=== PATIENT | female | born 1940 | race Caucasian/White ===

== ENCOUNTER 2018-12-15 18:50 | Inpatient (IN) | payer MEDICARE, BC ==
[2018-12-15] MEDS ORDERED: SODIUM CHLORIDE 0.9% 1,000 ML IV ONE (19:24)
[2018-12-15 20:17] LABS: Anisocytosis Slight; Basophils % (A) 0 %; Eosinophils # (A) 0.2 k/uL (0-0.7); Eosinophils % (A) 2 %; HCT 25.6 % (34.0-46.0); Lymphocytes % (A) 12 %; MCH 28.2 pg (25.0-35.0); MCHC 31.3 g/dL (31.0-37.0); MCV 90.1 fL (80.0-100.0); Mean Platelet Volume 7.3; Monocytes # (A) 0.5 k/uL (0-1.0); Monocytes % (A) 6 %; Neutrophils # (A) 6.6 k/uL (1.3-7.7); Neutrophils % (A) 79 %; Platelet Count 227 k/uL (150-450); RBC 2.84 m/uL (3.80-5.40); RDW 16.7 % (11.5-15.5); WBC 8.4 k/uL (3.8-10.6)
[2018-12-15 20:26] LABS: ALT 32 U/L (9-52); AST 19 U/L (14-36); Albumin 2.8 g/dL (3.5-5.0); Alkaline Phosphatase 69 U/L (38-126); Anion Gap 5 mmol/L; Blood Urea Nitrogen 54 mg/dL (7-17); Calcium 8.8 mg/dL (8.4-10.2); Carbon Dioxide 26 mmol/L (22-30); Chloride 105 mmol/L (98-107); Glucose 115 mg/dL (74-99); Potassium 5.2 mmol/L (3.5-5.1); Sodium 136 mmol/L (137-145); Total Bilirubin 0.2 mg/dL (0.2-1.3); Total Protein 4.9 g/dL (6.3-8.2)
--- NOTE | 2018-12-15 20:30 | ED ---
GI Bleed HPI - General Source: patient Mode of arrival: wheelchair Limitations: no limitations <Sheila Del Rio - Last Filed: 12/15/18 21:21> <David Randle - Last Filed: 12/15/18 23:22> - General Chief complaint: GI Bleed Stated complaint: GI Bleed Time Seen by Provider: 12/15/18 19:16 - History of Present Illness Initial comments: 78-year-old female patient presents to the emergency department today for evaluation after having 3 episodes of bloody bowel movements. Patient states the first bowel movement was dark black in color. States the subsequent 2 bowel movements had bright red blood present. Family did bring a sample did show evidence of bright red bleeding. Patient denies any history of GI bleed. States her last colonoscopy was in March which showed some evidence for diverticulosis. Patient denies any abdominal pain, nausea, or vomiting with this. Patient states she is feeling weak and did nearly passed out at home. Upon transfer into the hospital stretcher after triage patient did have a syncopal episode. She denies any fever or chills. Denies any headache, blurred vision, double vision, current dizziness. Denies any use of anticoagulants or antiplatelet medications. atient denies any recent rash, shortness breath, chest pain, diarrhea, constipation, back pain, numbness, tingling, dizziness, weakness, hematuria, dysuria, urinary urgency, urinary frequency, headache, visual changes, or any other complaints. (Sheila Del Rio) - Related Data Home Medications Medication Instructions Recorded Confirmed Allopurinol [Zyloprim] 300 mg PO DAILY 12/15/18 12/15/18 Aspirin [[place] Aspirin EC] 81 mg PO DAILY 12/15/18 12/15/18 Calcium Carbonate [Calcium] 600 mg PO DAILY 12/15/18 12/15/18 Cholecalciferol (Vitamin D3) 2,000 unit PO Q7D 12/15/18 12/15/18 [Vitamin D3] Cyanocobalamin (Vitamin B-12) 1,000 mcg PO DAILY 12/15/18 12/15/18 [Vitamin B-12] Dicyclomine HCl 10 mg PO DAILY PRN 12/15/18 12/15/18 Furosemide [Lasix] 20 mg PO DAILY 12/15/18 12/15/18 HYDROcodone/APAP 7.5-325MG [[place] 1 tab PO DAILY 12/15/18 12/15/18 7.5-325] Levothyroxine Sodium [Synthroid] 75 mcg PO DAILY 12/15/18 12/15/18 Losartan [Cozaar] 25 mg PO DAILY 12/15/18 12/15/18 Multivitamin/Iron/Folic Acid 1 tab PO DAILY 12/15/18 12/15/18 [Centrum Women Tablet] OXcarbazepine [Trileptal] 225 mg PO BID 12/15/18 12/15/18 Propranolol HCl 60 mg PO DAILY 12/15/18 12/15/18 Vits A,C,E/Lutein/Minerals 1 tab PO DAILY 12/15/18 12/15/18 [Ocuvite with Lutein Tablet] Allergies Allergy/AdvReac Type Severity Reaction Status Date / Time daptomycin Allergy Unknown Verified 12/15/18 19:45 hydromorphone [From Dilaudid] Allergy Unknown Verified 12/15/18 19:45 latex Allergy Unknown Verified 12/15/18 19:45 neomycin Allergy Unknown Verified 12/15/18 19:45 Review of Systems ROS Other: All systems not noted in ROS Statement are negative. <Sheila Del Rio - Last Filed: 12/15/18 21:21> ROS Other: All systems not noted in ROS Statement are negative. <David Randle - Last Filed: 12/15/18 23:22> ROS Statement: Those systems with pertinent positive or pertinent negative responses have been documented in the HPI. Past Medical History Past Medical History: Hypertension, Thyroid Disorder Additional Past Medical History / Comment(s): anemia History of Any Multi-Drug Resistant Organisms: None Reported Past Surgical History: Appendectomy, Cholecystectomy, Hysterectomy, Orthopedic Surgery Past Psychological History: No Psychological Hx Reported Smoking Status: Never smoker Past Alcohol Use History: None Reported Past Drug Use History: None Reported <Sheila Del Rio - Last Filed: 12/15/18 21:21> General Exam Limitations: no limitations General appearance: alert, in no apparent distress, other (This is a well-develo ped, well-nourished elderly female patient. Vital signs upon presentation are temperature 98.5F, pulse 91, respirations 18, blood pressure 62/38, pulse ox 97% on room air.) Eye exam: Present: normal appearance, PERRL, EOMI. Absent: scleral icterus, conjunctival injection, periorbital swelling ENT exam: Present: normal exam, normal oropharynx, mucous membranes moist Respiratory exam: Present: normal lung sounds bilaterally. Absent: respiratory distress, wheezes, rales, rhonchi, stridor Cardiovascular Exam: Present: regular rate, normal rhythm, normal heart sounds. Absent: systolic murmur, diastolic murmur, rubs, gallop, clicks GI/Abdominal exam: Present: soft, normal bowel sounds. Absent: distended, tenderness, guarding, rebound, rigid Neurological exam: Present: alert, oriented X3, CN II-XII intact Psychiatric exam: Present: normal affect, normal mood Skin exam: Present: warm, dry, intact, pallor. Absent: normal color, rash <Sheila Del Rio - Last Filed: 12/15/18 21:21> Course Vital Signs 12/15/18 12/15/18 12/15/18 19:08 19:38 20:01 Temperature 98.5 F Pulse Rate 91 74 74 Respiratory 18 20 18 Rate Blood Pressure 62/38 104/56 112/58 O2 Sat by Pulse 97 97 98 Oximetry 12/15/18 12/15/18 12/15/18 20:21 20:53 22:17 Temperature 98.1 F Pulse Rate 74 70 75 Respiratory 20 18 16 Rate Blood Pressure 108/55 122/65 95/48 O2 Sat by Pulse 98 98 Oximetry 12/15/18 22:32 Temperature 98.1 F Pulse Rate 76 Respiratory 16 Rate Blood Pressure 101/49 O2 Sat by Pulse Oximetry Medical Decision Making - Lab Data Result diagrams: 12/15/18 19:29 12/15/18 19:29 - EKG Data -: EKG Interpreted by Ny <Sheila Del Rio - Last Filed: 12/15/18 21:21> - Lab Data Result diagrams: 12/15/18 19:29 12/15/18 19:29 <David Randle - Last Filed: 12/15/18 23:22> - Medical Decision Making 78 female presenting with episode of melena followed by red rectal bleeding. Initial blood pressure is low, discussed it gonzales with IV fluids. Hemoglobin is 8 to patient's primary care physician she does have baseline hemoglobin around 9. She is not on any anticoagulation. She will be transfused 1 unit, she will be kept in the ICU for close monitoring, serial hemoglobin, GI consultation. Case discussed with both the admitting physician [facility]me. [facility] - Lab Data Lab Results 12/15/18 12/15/18 12/15/18 Range/Units 19:29 19:29 19:29 WBC 8.4 (3.8-10.6) k/uL RBC 2.84 L (3.80-5.40) m/uL Hgb 8.0 L (11.4-16.0) gm/dL Hct 25.6 L (34.0-46.0) % MCV 90.1 (80.0-100.0) fL MCH 28.2 (25.0-35.0) pg MCHC 31.3 (31.0-37.0) g/dL RDW 16.7 H (11.5-15.5) % Plt Count 227 (150-450) k/uL Neutrophils % 79 % Lymphocytes % 12 % Monocytes % 6 % Eosinophils % 2 % Basophils % 0 % Neutrophils # 6.6 (1.3-7.7) k/uL Lymphocytes # 1.0 (1.0-4.8) k/uL Monocytes # 0.5 (0-1.0) k/uL Eosinophils # 0.2 (0-0.7) k/uL Basophils # 0.0 (0-0.2) k/uL Anisocytosis Slight PT (9.0-12.0) sec INR (<1.2) APTT (22.0-30.0) sec Sodium 136 L (137-145) mmol/L Potassium 5.2 H (3.5-5.1) mmol/L Chloride 105 (98-107) mmol/L Carbon Dioxide 26 (22-30) mmol/L Anion Gap 5 mmol/L BUN 54 H (7-17) mg/dL Creatinine 0.74 (0.52-1.04) mg/dL Est GFR (CKD-EPI)AfAm >90 (>60 ml/min/1.73 sqM) Est GFR (CKD-EPI)NonAf 80 (>60 ml/min/1.73 sqM) Glucose 115 H (74-99) mg/dL Calcium 8.8 (8.4-10.2) mg/dL Total Bilirubin 0.2 (0.2-1.3) mg/dL AST 19 (14-36) U/L ALT 32 (9-52) U/L Alkaline Phosphatase 69 (38-126) U/L Troponin I (0.000-0.034) ng/mL Total Protein 4.9 L (6.3-8.2) g/dL Albumin 2.8 L (3.5-5.0) g/dL Blood Type O Positive Blood Type Recheck No Antibody Screen NEGATIVE Crossmatch See Detail Spec Expiration Date 12/18/2018 - 232812/15/18 12/15/18 Range/Units 19:29 19:29 WBC (3.8-10.6) k/uL RBC (3.80-5.40) m/uL Hgb (11.4-16.0) gm/dL Hct (34.0-46.0) % MCV (80.0-100.0) fL MCH (25.0-35.0) pg MCHC (31.0-37.0) g/dL RDW (11.5-15.5) % Plt Count (150-450) k/uL Neutrophils % % Lymphocytes % % Monocytes % % Eosinophils % % Basophils % % Neutrophils # (1.3-7.7) k/uL Lymphocytes # (1.0-4.8) k/uL Monocytes # (0-1.0) k/uL Eosinophils # (0-0.7) k/uL Basophils # (0-0.2) k/uL Anisocytosis PT 9.9 (9.0-12.0) sec INR 0.9 (<1.2) APTT 21.3 L (22.0-30.0) sec Sodium (137-145) mmol/L Potassium (3.5-5.1) mmol/L Chloride (98-107) mmol/L Carbon Dioxide (22-30) mmol/L Anion Gap mmol/L BUN (7-17) mg/dL Creatinine (0.52-1.04) mg/dL Est GFR (CKD-EPI)AfAm (>60 ml/min/1.73 sqM) Est GFR (CKD-EPI)NonAf (>60 ml/min/1.73 sqM) Glucose (74-99) mg/dL Calcium (8.4-10.2) mg/dL Total Bilirubin (0.2-1.3) mg/dL AST (14-36) U/L ALT (9-52) U/L Alkaline Phosphatase (38-126) U/L Troponin I <0.012 (0.000-0.034) ng/mL Total Protein (6.3-8.2) g/dL Albumin (3.5-5.0) g/dL Blood Type Blood Type Recheck Antibody Screen Crossmatch Spec Expiration Date - EKG Data EKG Comments: EKG obtained at 1931 shows normal sinus rhythm with a left anterior fascicular block, ventricular rate 71, VA interval 154, QRS duration 114, QTC 392, QTc 425. No evidence of ST elevation or depression (Sheila Del Rio) Critical Care Time Critical Care Time: Yes Total Critical Care Time: 35 <David Randle - Last Filed: 12/15/18 23:22> Disposition Decision to Admit Reason: Admit from EC Decision Date: 12/15/18 Decision Time: 21:21 <Sheila Del Rio - Last Filed: 12/15/18 21:21> <David Randle - Last Filed: 12/15/18 23:22> Clinical Impression: GI bleed, Syncope, Symptomatic anemia Disposition: ADMITTED IP TO THIS [facility] Condition: Serious
[2018-12-15 20:32] LABS: INR 0.9 (<1.2); Prothrombin Time 9.9 sec (9.0-12.0)
[2018-12-15 20:38] LABS: Partial Thromboplastin Time 21.3 sec (22.0-30.0)
[2018-12-15] MEDS ORDERED: PANTOPRAZOLE 40 MG/10 ML VIAL IVP STA (21:14)
[2018-12-15] MEDS ORDERED: NALOXONE 0.4 MG/ML 1 ML VIAL IV PRN (21:17)
[2018-12-15] MEDS ORDERED: DICYCLOMINE 10 MG CAP PO PRN (21:20)
[2018-12-15 22:56] LABS: Glucose,Whole Blood 142 mg/dL (75-99)
[2018-12-15] MEDS: SODIUM CHLORIDE 0.9% 1,000 ML IV SCH (23:50)
[2018-12-16 00:36] LABS: Appearance,Urine Clear (Clear); Bilirubin,Urine Negative (Negative); Blood,Urine Negative (Negative); Color,Urine Light Yellow; Glucose,Urine (UA) Negative (Negative); Ketones,Urine Negative (Negative); Leukocyte Esterase,Urine Negative (Negative); Nitrite,Urine Negative (Negative); Protein,Urine Negative (Negative); Specific Gravity,Urine 1.017 (1.001-1.035); Urobilinogen,Urine <2.0 mg/dL (<2.0)
[2018-12-16 01:00] LABS: Anisocytosis Slight; Basophils % (A) 0 %; Eosinophils # (A) 0.1 k/uL (0-0.7); Eosinophils % (A) 1 %; HCT 24.3 % (34.0-46.0); HGB 7.6 gm/dL (11.4-16.0); Hypochromasia Slight; Lymphocytes # (A) 0.9 k/uL (1.0-4.8); Lymphocytes % (A) 14 %; MCH 28.4 pg (25.0-35.0); MCHC 31.3 g/dL (31.0-37.0); MCV 90.6 fL (80.0-100.0); Mean Platelet Volume 7.3; Monocytes # (A) 0.3 k/uL (0-1.0); Monocytes % (A) 4 %; Neutrophils # (A) 4.9 k/uL (1.3-7.7); Neutrophils % (A) 80 %; Platelet Count 155 k/uL (150-450); RBC 2.68 m/uL (3.80-5.40); RDW 16.6 % (11.5-15.5); WBC 6.1 k/uL (3.8-10.6)
[2018-12-16 05:33] LABS: Anisocytosis Slight; Basophils % (A) 0 %; Eosinophils # (A) 0.1 k/uL (0-0.7); Eosinophils % (A) 2 %; HGB 7.3 gm/dL (11.4-16.0); Hypochromasia Slight; Lymphocytes % (A) 18 %; MCH 27.4 pg (25.0-35.0); MCHC 30.4 g/dL (31.0-37.0); MCV 90.3 fL (80.0-100.0); Mean Platelet Volume 7.2; Monocytes # (A) 0.4 k/uL (0-1.0); Monocytes % (A) 7 %; Neutrophils # (A) 3.9 k/uL (1.3-7.7); Neutrophils % (A) 70 %; Platelet Count 153 k/uL (150-450); RBC 2.66 m/uL (3.80-5.40); RDW 16.6 % (11.5-15.5); WBC 5.6 k/uL (3.8-10.6)
[2018-12-16 05:46] LABS: Anion Gap 3 mmol/L; Blood Urea Nitrogen 49 mg/dL (7-17); Calcium 8.4 mg/dL (8.4-10.2); Carbon Dioxide 27 mmol/L (22-30); Chloride 108 mmol/L (98-107); Glucose 93 mg/dL (74-99); Potassium 4.8 mmol/L (3.5-5.1); Sodium 138 mmol/L (137-145)
[2018-12-16] MEDS: LEVOTHYROXINE 75 MCG TAB PO SCH (07:00)
[2018-12-16] MEDS ORDERED: IRON PO SCH (09:00)
[2018-12-16] MEDS ORDERED: FOLIC ACID PO SCH (09:00)
[2018-12-16] MEDS ORDERED: MULTIVITAMIN PO SCH (09:00)
--- NOTE | 2018-12-16 09:03 | P.HPIM ---
History of Present Illness This is a pleasant 78 years old female with past medical history of hypertension and hypothyroidism, left trigeminal neuralgia, chronic left leg pain. Who presents to the emergency room with hypotension and GI bleed. Her job with started yesterday and first 2 episodes of black tarry stool, followed by a third fresh blood bowel movement. No associated abdominal pain. No nausea vomiting. Patient usually uses hydrocodone for her pain control in her left leg and Trileptal for her trigeminal neuralgia, however she denies using NSAIDs prior to this episode. He denies chest pain. No dyspnea. No change in urine or bowel habits. No fever. On admission patient was hypotensive, 62/38 3. Patient received fluid and one unit of blood transfusion and transferred to the intensive care unit. Her current blood pressure is 103/52. Hemoglobin on arrival was 8.0, ca. No significant ST-T changes. me down to 7.3. No baseline hemoglobin in the system. Rest of CBC and BMP without significant abnormality. occult blood in the stool is positive. UA is not suggestive of infection. EKG showing normal sinus rhythm at 71 BPM Review of Systems CONSTITUTIONAL: No fever, no malaise, no fatigue. HEENT: No recent visual problems or hearing problems. Denied any sore throat. CARDIOVASCULAR: No orthopnea, PND, no palpitations, no syncope. PULMONARY: No shortness of breath, no cough, no hemoptysis. GASTROINTESTINAL: No diarrhea, no nausea, no vomiting, no abdominal pain. Normoactive bowel sounds. NEUROLOGICAL: No headaches, no weakness, no numbness. HEMATOLOGICAL: Denies any bleeding or petechiae. GENITOURINARY: Denies any burning micturition, frequency, or urgency. MUSCULOSKELETAL/RHEUMATOLOGICAL: Denies any joint pain, swelling, or any muscle pain. ENDOCRINE: Denies any polyuria or polydipsia. ROS unobtainable: due to endotracheal tube Past Medical History Past Medical History: Hypertension, Thyroid Disorder Additional Past Medical History / Comment(s): anemia History of Any Multi-Drug Resistant Organisms: ESBL, VRE Date of last positivie culture/infection: 2009 MDRO Source:: surgical site on right leg Past Surgical History: Appendectomy, Cholecystectomy, Hysterectomy, Orthopedic Surgery Past Anesthesia/Blood Transfusion Reactions: No Reported Reaction Past Psychological History: No Psychological Hx Reported Smoking Status: Never smoker Past Alcohol Use History: None Reported Past Drug Use History: None Reported Medications and Allergies Home Medications Medication Instructions Recorded Confirmed Type Allopurinol [Zyloprim] 300 mg PO DAILY 12/15/18 12/15/18 History Aspirin [[place] Aspirin EC] 81 mg PO DAILY 12/15/18 12/15/18 History Calcium Carbonate [Calcium] 600 mg PO DAILY 12/15/18 12/15/18 History Cholecalciferol (Vitamin D3) 2,000 unit PO Q7D 12/15/18 12/15/18 History [Vitamin D3] Cyanocobalamin (Vitamin B-12) 1,000 mcg PO DAILY 12/15/18 12/15/18 History [Vitamin B-12] Dicyclomine HCl 10 mg PO DAILY PRN 12/15/18 12/15/18 History Furosemide [Lasix] 20 mg PO DAILY 12/15/18 12/15/18 History HYDROcodone/APAP 7.5-325MG [[place] 1 tab PO DAILY 12/15/18 12/15/18 History 7.5-325] Levothyroxine Sodium [Synthroid] 75 mcg PO DAILY 12/15/18 12/15/18 History Losartan [Cozaar] 25 mg PO DAILY 12/15/18 12/15/18 History Multivitamin/Iron/Folic Acid 1 tab PO DAILY 12/15/18 12/15/18 History [Centrum Women Tablet] OXcarbazepine [Trileptal] 225 mg PO BID 12/15/18 12/15/18 History Propranolol HCl 60 mg PO DAILY 12/15/18 12/15/18 History Vits A,C,E/Lutein/Minerals 1 tab PO DAILY 12/15/18 12/15/18 History [Ocuvite with Lutein Tablet] Allergies Allergy/AdvReac Type Severity Reaction Status Date / Time daptomycin Allergy Unknown Verified 12/15/18 19:45 hydromorphone [From Dilaudid] Allergy Unknown Verified 12/15/18 19:45 latex Allergy Unknown Verified 12/15/18 19:45 neomycin Allergy Unknown Verified 12/15/18 19:45 Physical Exam Vitals: Vital Signs Temp Pulse Pulse Resp BP Pulse Ox 12/16/18 07:16 98.4 F 73 15 103/52 97 12/16/18 07:07 98.4 F 73 15 103/52 97 12/16/18 07:00 87 9 L 98/51 96 12/16/18 06:57 98.4 F 84 11 L 98/51 96 12/16/18 06:00 67 15 109/51 98 12/16/18 05:00 70 14 96/48 97 12/16/18 04:00 97.8 F 68 11 L 86/43 97 12/16/18 03:57 72 12/16/18 03:00 71 13 100/57 97 12/16/18 02:13 97.7 F 71 19 100/57 95 12/16/18 02:00 68 14 90/42 97 12/16/18 01:00 76 15 100/48 97 12/16/18 00:31 72 16 107/47 96 12/16/18 00:01 98.4 F 74 16 99/58 98 12/16/18 00:00 72 14 12/15/18 23:00 98.1 F 73 13 109/53 98 12/15/18 22:32 98.1 F 76 16 101/49 12/15/18 22:17 98.1 F 75 16 95/48 12/15/18 20:53 70 18 122/65 98 12/15/18 20:21 74 20 108/55 98 12/15/18 20:01 74 18 112/58 98 12/15/18 19:38 74 20 104/56 97 12/15/18 19:08 98.5 F 91 18 62/38 97 Intake and Output 12/15/18 12/16/18 12/16/18 22:59 06:59 14:59 Intake Total 0 800 Output Total 1235 Balance 0 -435 Intake: IV 180 normal saline 180 Blood Product 0 620 Rc As-1 Unit 0 [id number] Rc As-1 Unit 0 310 [id number] Output: Urine 1235 Other: Voiding Method Indwelling Catheter # Bowel Movements 1 Weight 124.738 kg 124.5 kg GENERAL: The patient is alert and oriented x3, not in any acute distress. Well developed, well nourished. HEENT: Pupils are round and equally reacting to light. EOMI. No scleral icterus. No conjunctival pallor. Normocephalic, atraumatic. No pharyngeal erythema. No thyromegaly. CARDIOVASCULAR: S1 and S2 present. No murmurs, rubs, or gallops. PULMONARY: Chest is clear to auscultation, no wheezing or crackles. ABDOMEN: Soft, nontender, nondistended, normoactive bowel sounds. No palpable organomegaly. MUSCULOSKELETAL: No joint swelling or deformity. EXTREMITIES: No cyanosis, clubbing, or pedal edema. NEUROLOGICAL: Gross neurological examination did not reveal any focal deficits. SKIN: No rashes. Results CBC & Chem 7: 12/16/18 04:46 12/16/18 04:46 Labs: Abnormal Lab Results - Last 24 Hours (Table) 12/15/18 12/15/18 12/15/18 Range/Units 19:29 19:29 19:29 RBC 2.84 L (3.80-5.40) m/uL Hgb 8.0 L (11.4-16.0) gm/dL Hct 25.6 L (34.0-46.0) % MCHC (31.0-37.0) g/dL RDW 16.7 H (11.5-15.5) % Lymphocytes # (1.0-4.8) k/uL APTT (22.0-30.0) sec Sodium 136 L (137-145) mmol/L Potassium 5.2 H (3.5-5.1) mmol/L Chloride (98-107) mmol/L BUN 54 H (7-17) mg/dL Glucose 115 H (74-99) mg/dL POC Glucose (mg/dL) (75-99) mg/dL Total Protein 4.9 L (6.3-8.2) g/dL Albumin 2.8 L (3.5-5.0) g/dL Stool Occult Blood (Negative) Crossmatch See Detail 12/15/18 12/15/18 12/15/18 Range/Units 19:29 22:54 23:51 RBC (3.80-5.40) m/uL Hgb (11.4-16.0) gm/dL Hct (34.0-46.0) % MCHC (31.0-37.0) g/dL RDW (11.5-15.5) % Lymphocytes # (1.0-4.8) k/uL APTT 21.3 L (22.0-30.0) sec Sodium (137-145) mmol/L Potassium (3.5-5.1) mmol/L Chloride (98-107) mmol/L BUN (7-17) mg/dL Glucose (74-99) mg/dL POC Glucose (mg/dL) 142 H (75-99) mg/dL Total Protein (6.3-8.2) g/dL Albumin (3.5-5.0) g/dL Stool Occult Blood Positive H (Negative) Crossmatch 12/16/18 12/16/18 12/16/18 Range/Units 00:34 04:46 04:46 RBC 2.68 L 2.66 L (3.80-5.40) m/uL Hgb 7.6 L 7.3 L (11.4-16.0) gm/dL Hct 24.3 L 24.0 L (34.0-46.0) % MCHC 30.4 L (31.0-37.0) g/dL RDW 16.6 H 16.6 H (11.5-15.5) % Lymphocytes # 0.9 L (1.0-4.8) k/uL APTT (22.0-30.0) sec Sodium (137-145) mmol/L Potassium (3.5-5.1) mmol/L Chloride 108 H (98-107) mmol/L BUN 49 H (7-17) mg/dL Glucose (74-99) mg/dL POC Glucose (mg/dL) (75-99) mg/dL Total Protein (6.3-8.2) g/dL Albumin (3.5-5.0) g/dL Stool Occult Blood (Negative) Crossmatch Thrombosis Risk Factor Assmnt - Choose All That Apply Any of the Below Risk Factors Present?: Yes Each Factor Represents 1 point: Medical pt on bed rest, Obesity (BMI >25) Other Risk Factors: No Thrombosis Risk Factor Assessment Total Risk Factor Score: 2 Thrombosis Risk Factor Assessment Level: Low Risk Assessment and Plan Assessment: Gastrointestinal bleed, bright red blood per rectum. Painless Acute blood loss anemia Hypertension on admission secondary to above History of hypertension Hypothyroidism History of trigeminal neuralgia Chronic left leg pain. Plan: This is a pleasant 78 years old female who presents with GI bleed. Transfuse blood as needed. Protonix twice a day. GI consult. Scope care team input is appreciated. Labs and medication were reviewed.. Continue same treatment. Continue with symptomatic treatment. Resume home medication. Monitor lytes and vitals. DVT and GI prophylaxis. Further recommendations of the clinical course of the patient DVT prophylaxis: No heparin GI Prophylaxis: Ppi Prognosis is guarded
--- NOTE | 2018-12-16 10:40 | CONS ---
CONSULTATION DATE OF SERVICE: 12/16/2018 REASON FOR CONSULTATION: For anemia and GI bleed. HISTORY OF PRESENT ILLNESS: The patient is a 78-year-old pleasant white female who is known to me from her previous office visits with a past medical history of hypertension, hypothyroidism, and trigeminal neuralgia and persistent iron deficiency anemia for which she follows with Dr. Reid on a p.r.n. basis. She presents to the emergency room with acute GI bleed. She had 2 episodes of black tarry stools followed by bright red blood bowel movement yesterday. She denies any abdominal pain. No nausea, no vomiting. No recent NSAID use. No prior history of peptic ulcer disease. She did have a colonoscopy in March of 2018 as a part of screening, which showed diverticulosis and this was done at [facility]. Her last upper endoscopy was about 2 or 3 years ago. Her baseline hemoglobin is around 9 g/dL and received periodic iron infusions with Dr. Reid. When she came to the emergency room, she was hypertensive and hemoglobin of 7.3 and received 1 unit of blood transfusion. PAST MEDICAL HISTORY: Significant for hypertension, hypothyroidism, degenerative joint disease. PAST SURGICAL HISTORY: Appendectomy, cholecystectomy, hysterectomy, EGD and colonoscopy. EGD 3 years ago. Colonoscopy in March of 2018. MEDICATIONS: At home Zyloprim, aspirin, vitamin D3, calcium, [place], Lasix, dicyclomine, Trileptal, Propranolol, Ocuvite, multivitamin, losartan. ALLERGIES: LATEX, DILAUDID, NEOMYCIN, AND DAPTOMYCIN. SOCIAL HISTORY: No smoking. No alcohol use. FAMILY HISTORY: Unremarkable. REVIEW OF SYMPTOMS: Cardiopulmonary: No chest pain, or shortness of breath. no dysuria or hematuria. Musculoskeletal unremarkable. Skin unremarkable. Endocrine unremarkable. Psychiatric unremarkable. Neurology unremarkable. ENT/vision unremarkable. Constitutional: No recent weight loss. No fever, chills, night sweats. PHYSICAL EXAMINATION: She appears comfortable. No apparent distress. VITAL SIGNS: Stable. Blood pressure is 103/52, pulse is 73, temperature 98.4. HEENT examination unremarkable. Conjunctivae pink. Sclerae anicteric. Oral cavity no lesions. Neck no jugular venous distention or lymph node enlargement. Chest was clear to auscultation. HEART: Regular rate and rhythm. ABDOMEN: Soft. Bowel sounds are positive. No organomegaly. Extremities: No pedal edema. Skin no rashes. NEUROLOGIC: Alert and oriented x3. No focal deficits. LABS: Done at the time of admission to the hospital, hemoglobin was 8. Dropped to 7.3 and received 1 unit of blood transfusion. WBC 5.6, platelets are normal. BUN was 49, creatinine 0.69. PT and INR normal. Basic metabolic panel is normal. Stool occult blood was positive. IMPRESSION: This is a lady who presents to the hospital with acute GI bleed. She had 2 episodes of black tarry stools followed by bright red blood per rectum that started yesterday evening. She did have a colonoscopy in March of 2018 that showed sigmoid diverticulosis. Her last upper endoscopy was 2 or 3 years ago. No recent NSAID use. No prior history of peptic ulcer disease. Possibly we are dealing with an upper GI source of bleeding presently, but she is hemodynamically stable. RECOMMENDATIONS: 1. IV Protonix. 2. Clear liquid diet. 3. Proceed with an EGD tomorrow. 4. No need for any repeat colonoscopy at the present time, since she had last one in March of 2018. 5. CBC q.12 hours and we will follow the patient closely during her hospital stay. Thank you for this consultation. MMODL / IJN: [id number] /
[2018-12-16] MEDS: CALCIUM CARBONATE 500 MG CHEWABLE PO SCH (11:38)
[2018-12-16] MEDS: CYANOCOBALAMIN 500 MCG TAB PO SCH (11:38)
[2018-12-16] MEDS: HYDROcodone/APAP 7.5-325MG 1 EACH TAB PO SCH (11:39)
[2018-12-16] MEDS: FUROSEMIDE 40 MG TAB PO SCH (11:39)
[2018-12-16] MEDS: PANTOPRAZOLE 40 MG/10 ML VIAL IVP SCH ×2 (11:42→21:44)
[2018-12-16] MEDS ORDERED: CHOLECALCIFEROL 1,000 UNIT TAB PO SCH (12:00)
[2018-12-16] MEDS: PROPRANOLOL 20 MG TAB PO SCH (12:06)
[2018-12-16] MEDS: LOSARTAN 25 MG TAB PO SCH (12:06)
[2018-12-16] MEDS: OXcarbazepine 150 MG TAB PO SCH ×2 (12:54→21:42)
[2018-12-16] MEDS: ALLOPURINOL 300 MG TAB PO SCH (12:54)
[2018-12-16] MEDS: VIT A,C & E-LUTEIN-MINERALS 1 EACH TAB PO SCH (12:55)
[2018-12-16] MEDS ORDERED: SODIUM CHLORIDE 0.9% 1,000 ML IV ONE ×2 (13:32→17:02)
[2018-12-16 13:35] LABS: Anisocytosis Slight; Basophils % (A) 0 %; Eosinophils # (A) 0.1 k/uL (0-0.7); Eosinophils % (A) 1 %; HCT 21.9 % (34.0-46.0); Lymphocytes # (A) 0.8 k/uL (1.0-4.8); Lymphocytes % (A) 11 %; MCH 28.8 pg (25.0-35.0); MCV 89.8 fL (80.0-100.0); Mean Platelet Volume 7.3; Monocytes # (A) 0.4 k/uL (0-1.0); Monocytes % (A) 5 %; Neutrophils # (A) 5.6 k/uL (1.3-7.7); Neutrophils % (A) 81 %; Platelet Count 171 k/uL (150-450); RBC 2.44 m/uL (3.80-5.40); RDW 16.3 % (11.5-15.5); WBC 6.9 k/uL (3.8-10.6)
--- NOTE | 2018-12-16 14:06 | P.CNPUL ---
History of Present Illness Consult date: 12/16/18 Requesting physician: Salomon Olmedo Reason for consult: other (GI bleeding) Chief complaint: Black tarry stools and bright red blood per rectum History of present illness: This is a 78-year-old female with history of multiple medical problems including hypertension, hypothyroidism, chronic iron deficiency anemia, trigeminal neuralgia, hypothyroidism, previous history of osteomyelitis, patient presented to the ER with 2 days history of black tarry stools, and at one point she even noted that the stool had some fresh blood in them. Patient was also complaining of lightheadedness, arrived to the ER, and she was noted to have a hemoglobin of 8. Apparently the patient had few other bloody bowel movements, and her hemoglobin went down this morning gradually to 7.0. Patient did receive 2 units of packed RBCs so far, she was seen by gastroenterology on consultation, and according to the patient she had a colonoscopy back in March. And she was told that she had diverticular disease. Dr. Juarez is recommending EGD on the patient to be done tomorrow. Patient is not on any nonsteroidal inflammatory drugs, she is only on baby aspirin which she takes daily. Her last upper endoscopy was over 3 years ago. And she normally has a hemoglobin of around 9. Did receive iron infusions in the past by hematology. Considering the anemia and the GI blood losses, considering the patient required 2 units of packed RBCs since admission, I was asked to see the patient on consultation in the ICU. During my evaluation, the patient was basically asymptomatic. And she was hemodynamically stable. Review of Systems CONSTITUTIONAL: No fever, no malaise, no fatigue. HEENT: Denies sore throat, no headache, no blurred vision, no dizziness. CARDIOVASCULAR: No chest pain or orthopnea or PND. No diaphoresis PULMONARY: Denies shortness of breath cough or wheezing, denies any hemoptysis. GASTROINTESTINAL: As noted in the history of present illness, mostly black tarry stools and at times bright red blood per rectum. NEUROLOGICAL: No headaches, no blurred vision, no dizziness. HEMATOLOGICAL: Has chronic history of deficiency anemia, GENITOURINARY: Denied dysuria frequency or urgency. No hematuria. MUSCULOSKELETAL/RHEUMATOLOGICAL: Has history of osteomyelitis and history of arthritis, multiple surgeries done on her knees and ankles. ENDOCRINE: Denies any heat or cold intolerance, denies any symptoms to suggest diabetes. Past Medical History Past Medical History: Hypertension, Thyroid Disorder Additional Past Medical History / Comment(s): anemia History of Any Multi-Drug Resistant Organisms: ESBL, VRE Date of last positivie culture/infection: 2009 MDRO Source:: surgical site on right leg Past Surgical History: Appendectomy, Cholecystectomy, Hysterectomy, Orthopedic Surgery Past Anesthesia/Blood Transfusion Reactions: No Reported Reaction Past Psychological History: No Psychological Hx Reported Smoking Status: Never smoker Past Alcohol Use History: None Reported Past Drug Use History: None Reported Medications and Allergies Home Medications Medication Instructions Recorded Confirmed Type Allopurinol [Zyloprim] 300 mg PO DAILY 12/15/18 12/15/18 History Aspirin [Union Aspirin EC] 81 mg PO DAILY 12/15/18 12/15/18 History Calcium Carbonate [Calcium] 600 mg PO DAILY 12/15/18 12/15/18 History Cholecalciferol (Vitamin D3) 2,000 unit PO Q7D 12/15/18 12/15/18 History [Vitamin D3] Cyanocobalamin (Vitamin B-12) 1,000 mcg PO DAILY 12/15/18 12/15/18 History [Vitamin B-12] Dicyclomine HCl 10 mg PO DAILY PRN 12/15/18 12/15/18 History Furosemide [Lasix] 20 mg PO DAILY 12/15/18 12/15/18 History HYDROcodone/APAP 7.5-325MG [[place] 1 tab PO DAILY 12/15/18 12/15/18 History 7.5-325] Levothyroxine Sodium [Synthroid] 75 mcg PO DAILY 12/15/18 12/15/18 History Losartan [Cozaar] 25 mg PO DAILY 12/15/18 12/15/18 History Multivitamin/Iron/Folic Acid 1 tab PO DAILY 12/15/18 12/15/18 History [Centrum Women Tablet] OXcarbazepine [Trileptal] 225 mg PO BID 12/15/18 12/15/18 History Propranolol HCl 60 mg PO DAILY 12/15/18 12/15/18 History Vits A,C,E/Lutein/Minerals 1 tab PO DAILY 12/15/18 12/15/18 History [Ocuvite with Lutein Tablet] Allergies Allergy/AdvReac Type Severity Reaction Status Date / Time daptomycin Allergy Unknown Verified 03/30/19 19:45 hydromorphone [From Dilaudid] Allergy Unknown Verified 12/15/18 19:45 latex Allergy Unknown Verified 12/15/18 19:45 neomycin Allergy Unknown Verified 12/15/18 19:45 Physical Exam Vitals: Vital Signs Temp Pulse Pulse Resp BP Pulse Ox 12/16/18 13:00 100 20 89/51 95 12/16/18 12:00 98.3 F 105 H 16 102/54 95 12/16/18 11:41 96 12/16/18 11:00 89 14 98/54 95 12/16/18 10:35 98.6 F 89 16 98/54 94 L 12/16/18 10:00 114 H 20 108/54 95 12/16/18 09:00 89 16 93/68 98 12/16/18 08:00 97.8 F 82 19 103/52 96 12/16/18 07:37 98.7 F 86 16 93/68 98 12/16/18 07:16 98.4 F 73 15 103/52 97 12/16/18 07:07 98.4 F 73 15 103/52 97 12/16/18 07:00 87 9 L 98/51 96 12/16/18 06:57 98.4 F 84 11 L 98/51 96 12/16/18 06:00 67 15 109/51 98 12/16/18 05:00 70 14 96/48 97 12/16/18 04:00 97.8 F 68 11 L 86/43 97 12/16/18 03:57 72 12/16/18 03:00 71 13 100/57 97 12/16/18 02:13 97.7 F 71 19 100/57 95 12/16/18 02:00 68 14 90/42 97 12/16/18 01:00 76 15 100/48 97 12/16/18 00:31 72 16 107/47 96 12/16/18 00:01 98.4 F 74 16 99/58 98 12/16/18 00:00 72 14 12/15/18 23:00 98.1 F 73 13 109/53 98 12/15/18 22:32 98.1 F 76 16 101/49 12/15/18 22:17 98.1 F 75 16 95/48 12/15/18 20:53 70 18 122/65 98 12/15/18 20:21 74 20 108/55 98 12/15/18 20:01 74 18 112/58 98 12/15/18 19:38 74 20 104/56 97 12/15/18 19:08 98.5 F 91 18 62/38 97 Intake and Output 12/15/18 12/16/18 12/16/18 22:59 06:59 14:59 Intake Total 0 800 1820 Output Total 1235 540 Balance 0 -435 1280 Intake: IV 180 120 normal saline 180 120 Oral 1080 Blood Product 0 620 620 Rc As-1 Unit 0 310 [id number] Rc As-1 Unit 0 310 [id number] Output: Urine 1235 540 Other: Voiding Method Indwelling Catheter Indwelling Catheter # Bowel Movements 1 Weight 124.738 kg 124.5 kg Physical Exam: Revealed a 78-year-old female, obese, in no distress. Looks pale. Head: Atraumatic, normocephalic. HEENT:[Neck is supple.] [No neck masses.] [No thyromegaly.] [No JVD.] PERRLA, EOMI, no icterus. No pharyngeal erythema, no thyromegaly. Chest: [Clear throughout, no crackles, no rhonchi, no wheezes.] Cardiac Exam: [Normal S1 and S2, no S3 gallop, no murmur.] Abdomen: [Soft, nontender, no megaly, no rebound, no guarding, normal bowel sounds.] Extremities: [No clubbing, no edema, no cyanosis.] Scars of multiple surgeries noted on the knees and ankles bilaterally Neurological Exam: Alert oriented 3. [No focal neurologic deficit.] Psychiatric: Normal mood, affect and mental status examination. Skin: No rashes. Results - Laboratory Findings CBC and BMP: 12/16/18 12:40 12/16/18 04:46 PT/INR, D-dimer PT 9.9 sec (9.0-12.0) 12/15/18 19:29 INR 0.9 (<1.2) 12/15/18 19:29 Abnormal lab findings: Abnormal Labs 12/15/18 12/15/18 12/15/18 19:29 19:29 19:29 RBC 2.84 L Hgb 8.0 L Hct 25.6 L MCHC RDW 16.7 H Lymphocytes # APTT Sodium 136 L Potassium 5.2 H Chloride BUN 54 H Glucose 115 H POC Glucose (mg/dL) Total Protein 4.9 L Albumin 2.8 L Stool Occult Blood Crossmatch See Detail 12/15/18 12/15/18 12/15/18 19:29 22:54 23:51 RBC Hgb Hct MCHC RDW Lymphocytes # APTT 21.3 L Sodium Potassium Chloride BUN Glucose POC Glucose (mg/dL) 142 H Total Protein Albumin Stool Occult Blood Positive H Crossmatch 12/16/18 12/16/18 12/16/18 00:34 04:46 04:46 RBC 2.68 L 2.66 L Hgb 7.6 L 7.3 L Hct 24.3 L 24.0 L MCHC 30.4 L RDW 16.6 H 16.6 H Lymphocytes # 0.9 L APTT Sodium Potassium Chloride 108 H BUN 49 H Glucose POC Glucose (mg/dL) Total Protein Albumin Stool Occult Blood Crossmatch 12/16/18 12:40 RBC 2.44 L Hgb 7.0 L Hct 21.9 L MCHC RDW 16.3 H Lymphocytes # 0.8 L APTT Sodium Potassium Chloride BUN Glucose POC Glucose (mg/dL) Total Protein Albumin Stool Occult Blood Crossmatch Assessment and Plan Assessment: Impression: 1 acute GI bleeding, could be diverticular in nature, or could be upper GI in nature. Patient was seen by gastroenterology, and she is scheduled to have EGD tomorrow. Her last colonoscopy was recent in March of 2018. In the meantime patient will continue on Protonix, we'll continue to monitor hemoglobin and hematocrit every few hours, and will transfuse accordingly. Patient may require more blood transfusion today. I will keep the patient in the ICU for further monitoring. 2 history of chronic iron deficiency anemia 3 history of hypertension 4 hypothyroidism 5 history of trigeminal neuralgia 6 history of osteoarthritis and previous history of osteomyelitis Recommendation: continue present treatment plan including Protonix, continue to monitor closely and transfuse accordingly. Transfuse hemoglobin less than 7. We'll continue to follow. Time with Patient: Greater than 30
[2018-12-16 17:07] LABS: Anisocytosis Slight; Basophils % (A) 1 %; Eosinophils # (A) 0.1 k/uL (0-0.7); Eosinophils % (A) 1 %; HCT 25.1 % (34.0-46.0); Lymphocytes # (A) 0.8 k/uL (1.0-4.8); Lymphocytes % (A) 11 %; MCH 27.9 pg (25.0-35.0); MCHC 31.6 g/dL (31.0-37.0); MCV 88.2 fL (80.0-100.0); Mean Platelet Volume 7.1; Monocytes # (A) 0.4 k/uL (0-1.0); Monocytes % (A) 6 %; Neutrophils # (A) 5.7 k/uL (1.3-7.7); Neutrophils % (A) 81 %; Platelet Count 148 k/uL (150-450); RBC 2.85 m/uL (3.80-5.40); RDW 16.5 % (11.5-15.5)
[2018-12-16] MEDS ORDERED: IV FLUID CONTINUATION 1,000 ML IV ONE (19:02)
[2018-12-16] MEDS ORDERED: PROPOFOL 10 MG/ML 20 ML VIAL IV ONE (19:06)
[2018-12-16] MEDS ORDERED: GLYCOPYRROLATE 0.2 MG/ML 2 ML VIAL ONE (19:06)
[2018-12-16] MEDS ORDERED: KETAMINE 10 MG/ML 20 ML VIAL ONE (19:06)
[2018-12-16] MEDS ORDERED: PHENYLEPHRINE-0.9% NACL SYG 1 MG/10 ML SYRINGE ONE (19:06)
[2018-12-16] MEDS ORDERED: ONDANSETRON 4 MG/2 ML VIAL ONE (19:06)
[2018-12-16] MEDS ORDERED: MIDAZOLAM 2 MG/2 ML VIAL ONE (19:06)
[2018-12-16] MEDS ORDERED: EPINEPHrine 10 ML SYRINGE (0.1 MG/ML) MISCELLANE ONE (19:31)
[2018-12-16] MEDS ORDERED: ONDANSETRON 4 MG/2 ML VIAL IVP PRN (19:36)
--- NOTE | 2018-12-16 19:41 | P.PCN ---
Date of Procedure: 12/16/18 Procedure(s) Performed: BRIEF HISTORY: Patient is a 78-year-old, pleasant, white female, admitted to the intensive care unit with acute GI bleed. She presented with 2 episodes of black tarry stools yesterday and came to emergency room and was extremely dizzy and hypotensive. Initially was resuscitated with IV fluids and responded well. Hemoglobin was 8 g/dL and was transfused with 2 units. This morning hemoglobin was 7.6 g/dL and hence got another 2 units of blood transfusion. She was seen in consultation this morning and was scheduled for an upper endoscopy tomorrow. In the meantime she started having significant of maroon-colored stools with large clots and became hypotensive around 3 PM. She received 2 more units of blood transfusion and hemoglobin was around 8 g/dL. She had another bowel movement that was bloody and large and presently receiving 6 unit of blood transfusion. She is scheduled for an emergency upper endoscopy at the bedside in the intensive care unit. PROCEDURE PERFORMED: Esophagogastroduodenoscopy with injection epinephrine and Endo Clip placement and biopsy. PREOPERATIVE DIAGNOSIS: Acute upper GI bleed. IV sedation per anesthesia. PROCEDURE: After informed consent was obtained, the patient was brought into the endoscopy unit. IV sedation was administered by Anesthesia under continuous monitoring. Initially the Olympus GIF-140 video endoscope was inserted into the mouth. Esophagus intubated without any difficulty. It was gradually advanced into the stomach and duodenum and carefully examined. The bulb of the duodenum appeared normal. Along the duodenal sweep there was a 2 cm ulceration identified with a visible vessel and active oozing. At this time I injected 1 in 10,000 epinephrine and total of 10 mL was injected around the ulcer with good hemostasis. At this time the visible vessel was clearly visualized. I placed 2 Endo Clip's on the visible vessel with continued hemostasis. The scope at this time was withdrawn to the stomach, adequately insufflated with air, and upon careful examination, mucosa of the antrum, body, cardia and the fundus appeared normal. Biopsies were done from the antrum to rule out H. pylori infection. The scope was then withdrawn into the esophagus. Small sliding Hiatal hernia noted. The GE junction was located at 39 cm from the incisors. The esophagus appeared normal. There were no erosions or ulcerations seen and the patient tolerated the procedure well. IMPRESSION: 1. 2 cm duodenal ulcer along the duodenal sweep with a large visible vessel and active bleeding status post injection epinephrine followed by Endo Clip placement with good hemostasis. 2. Small hiatal hernia. RECOMMENDATIONS: The findings of this examination were discussed with the patient as well as a family. At this time will continue to monitor CBC every 6 hours and transfuse as needed. Surgical consultation was obtained and it discussed the findings with as she may need a surgical intervention if she has recurrent bleeding. She'll be continued on IV Protonix 40 mg every 12 hours.
[2018-12-16] MEDS: SODIUM CHLORIDE 0.9% 1,000 ML IV SCH (21:44)
[2018-12-17 00:50] LABS: Anisocytosis Slight; Basophils % (A) 0 %; Eosinophils % (A) 0 %; HCT 35.7 % (34.0-46.0); Hypochromasia Slight; Lymphocytes # (A) 0.5 k/uL (1.0-4.8); Lymphocytes % (A) 5 %; MCH 27.9 pg (25.0-35.0); MCHC 30.9 g/dL (31.0-37.0); MCV 90.4 fL (80.0-100.0); Mean Platelet Volume 7.1; Monocytes # (A) 0.3 k/uL (0-1.0); Monocytes % (A) 2 %; Neutrophils # (A) 10.6 k/uL (1.3-7.7); Neutrophils % (A) 92 %; Platelet Count 108 k/uL (150-450); RBC 3.95 m/uL (3.80-5.40); RDW 16.5 % (11.5-15.5); WBC 11.4 k/uL (3.8-10.6)
[2018-12-17 06:08] LABS: Anion Gap 3 mmol/L; Blood Urea Nitrogen 37 mg/dL (7-17); Calcium 7.9 mg/dL (8.4-10.2); Carbon Dioxide 21 mmol/L (22-30); Chloride 115 mmol/L (98-107); Glucose 140 mg/dL (74-99); Potassium 4.5 mmol/L (3.5-5.1); Sodium 139 mmol/L (137-145)
[2018-12-17 06:20] LABS: Anisocytosis Slight; Basophils % (A) 0 %; Eosinophils % (A) 0 %; HCT 32.7 % (34.0-46.0); HGB 10.6 gm/dL (11.4-16.0); Lymphocytes # (A) 0.6 k/uL (1.0-4.8); Lymphocytes % (A) 7 %; MCH 29.1 pg (25.0-35.0); MCHC 32.4 g/dL (31.0-37.0); MCV 89.9 fL (80.0-100.0); Mean Platelet Volume 7.2; Monocytes # (A) 0.4 k/uL (0-1.0); Monocytes % (A) 4 %; Neutrophils # (A) 8.1 k/uL (1.3-7.7); Neutrophils % (A) 89 %; Platelet Count 136 k/uL (150-450); Poikilocytosis Slight; RBC 3.64 m/uL (3.80-5.40); RDW 16.6 % (11.5-15.5); WBC 9.1 k/uL (3.8-10.6)
[2018-12-17] MEDS: PANTOPRAZOLE 40 MG/10 ML VIAL IVP SCH ×2 (08:44→20:18)
[2018-12-17] MEDS: HYDROcodone/APAP 7.5-325MG 1 EACH TAB PO SCH (08:44)
[2018-12-17] MEDS: CALCIUM CARBONATE 500 MG CHEWABLE PO SCH (08:44)
[2018-12-17] MEDS: CYANOCOBALAMIN 500 MCG TAB PO SCH (08:44)
[2018-12-17] MEDS: PROPRANOLOL 20 MG TAB PO SCH (08:45)
[2018-12-17] MEDS: LEVOTHYROXINE 75 MCG TAB PO SCH (08:45)
[2018-12-17] MEDS: LOSARTAN 25 MG TAB PO SCH (08:45)
[2018-12-17] MEDS: FUROSEMIDE 40 MG TAB PO SCH (08:45)
[2018-12-17] MEDS: VIT A,C & E-LUTEIN-MINERALS 1 EACH TAB PO SCH (08:45)
[2018-12-17] MEDS: ALLOPURINOL 300 MG TAB PO SCH (08:45)
[2018-12-17] MEDS: OXcarbazepine 150 MG TAB PO SCH ×2 (08:46→21:09)
[2018-12-17] MEDS: SODIUM CHLORIDE 0.9% 1,000 ML IV SCH ×2 (08:54→18:40)
--- NOTE | 2018-12-17 09:49 | P.PN ---
Subjective This is a pleasant 78 years old female with past medical history of hypertension and hypothyroidism, left trigeminal neuralgia, chronic left leg pain. Who presents to the emergency room with hypotension and GI bleed. Her job with started yesterday and first 2 episodes of black tarry stool, followed by a third fresh blood bowel movement. No associated abdominal pain. No nausea vomiting. Patient usually uses hydrocodone for her pain control in her left leg and Trileptal for her trigeminal neuralgia, however she denies using NSAIDs prior to this episode. He denies chest pain. No dyspnea. No change in urine or bowel habits. No fever. On admission patient was hypotensive, 62/38 3. Patient received fluid and one unit of blood transfusion and transferred to the intensive care unit. Her current blood pressure is 103/52. Hemoglobin on arrival was 8.0, ca. No significant ST-T changes. me down to 7.3. No baseline hemoglobin in the system. Rest of CBC and BMP without significant abnormality. occult blood in the stool is positive. UA is not suggestive of infection. EKG showing normal sinus rhythm at 71 BPM 12/17/2018 Patient remains with icing critical condition, yesterday patient started having continuous bleeding that needed emergent EGD done by staff radiographer showing 2 cm duodenal ulcer, status post Endo Clip placement . Her current hemoglobin is 10.6. This morning. And her Vitas looks stable with blood pressure on the high side. However patient is alert awake and oriented. And she denies any abdominal pain or dyspnea. No chest pain Objective - Vital Signs Vital signs: Vital Signs Temp 98.4 F 12/17/18 08:00 Pulse 85 12/17/18 09:30 Resp 10 L 12/17/18 09:30 BP 140/71 12/17/18 09:30 Pulse Ox 97 12/17/18 09:30 Intake & Output 12/16/18 12/17/18 12/17/18 18:59 06:59 18:59 Intake Total 6080 2320 300 Output Total 1070 560 150 Balance 5010 1760 150 Weight 126.2 kg Intake: IV 2520 1700 300 Sodium Chloride 0.9% 1, 2000 000 ml @ 999 mls/hr IV . Q1H1M ONE Rx#:[id number] normal saline 520 1200 300 Oral 1080 Blood Product 2480 620 Rc As-1 Unit 310 [id number] Rc As-1 Unit 310 [id number] Rc As-1 Unit 0 310 [id number] Rc As-1 Unit 310 [id number] Rc As-1 Unit 310 [id number] Output: Urine 1070 560 150 Other: Voiding Method Indwelling Catheter Indwelling Catheter - Exam GENERAL: The patient is alert and oriented x3, not in any acute distress. Well developed, well nourished. HEENT: Pupils are round and equally reacting to light. EOMI. No scleral icterus. No conjunctival pallor. Normocephalic, atraumatic. No pharyngeal erythema. No thyromegaly. CARDIOVASCULAR: S1 and S2 present. No murmurs, rubs, or gallops. PULMONARY: Chest is clear to auscultation, no wheezing or crackles. ABDOMEN: Soft, nontender, nondistended, normoactive bowel sounds. No palpable organomegaly. MUSCULOSKELETAL: No joint swelling or deformity. EXTREMITIES: No cyanosis, clubbing, or pedal edema. NEUROLOGICAL: Gross neurological examination did not reveal any focal deficits. SKIN: No rashes. - Labs CBC & Chem 7: 12/17/18 05:57 12/17/18 05:38 Labs: Abnormal Lab Results - Last 24 Hours (Table) 12/15/18 12/16/18 12/16/18 Range/Units 19:29 12:40 16:42 WBC (3.8-10.6) k/uL RBC 2.44 L 2.85 L (3.80-5.40) m/uL Hgb 7.0 L 8.0 L (11.4-16.0) gm/dL Hct 21.9 L 25.1 L (34.0-46.0) % MCHC (31.0-37.0) g/dL RDW 16.3 H 16.5 H (11.5-15.5) % Plt Count 148 L (150-450) k/uL Neutrophils # (1.3-7.7) k/uL Lymphocytes # 0.8 L 0.8 L (1.0-4.8) k/uL Chloride (98-107) mmol/L Carbon Dioxide (22-30) mmol/L BUN (7-17) mg/dL Glucose (74-99) mg/dL Calcium (8.4-10.2) mg/dL Crossmatch See Detail 12/17/18 12/17/18 12/17/18 Range/Units 00:37 05:38 05:57 WBC 11.4 H (3.8-10.6) k/uL RBC 3.64 L (3.80-5.40) m/uL Hgb 11.0 L D 10.6 L (11.4-16.0) gm/dL Hct 32.7 L (34.0-46.0) % MCHC 30.9 L (31.0-37.0) g/dL RDW 16.5 H 16.6 H (11.5-15.5) % Plt Count 108 L 136 L (150-450) k/uL Neutrophils # 10.6 H 8.1 H (1.3-7.7) k/uL Lymphocytes # 0.5 L 0.6 L (1.0-4.8) k/uL Chloride 115 H (98-107) mmol/L Carbon Dioxide 21 L (22-30) mmol/L BUN 37 H (7-17) mg/dL Glucose 140 H (74-99) mg/dL Calcium 7.9 L (8.4-10.2) mg/dL Crossmatch Assessment and Plan Assessment: Gastrointestinal bleed, bright red blood per rectum. Painless Acute blood loss anemia Hypertension on admission secondary to above History of hypertension Hypothyroidism History of trigeminal neuralgia Chronic left leg pain. Plan: This is a pleasant 78 years old female who presents with GI bleed. Transfuse blood as needed. Protonix twice a day. GI consult. Scope care team input is appreciated. Labs and medication were reviewed.. Continue same treatment. Continue with symptomatic treatment. Resume home medication. Monitor lytes and vitals. DVT and GI prophylaxis. Further recommendations of the clinical course of the patient DVT prophylaxis: No heparin GI Prophylaxis: Ppi Prognosis is guarded
--- NOTE | 2018-12-17 10:18 | PN ---
PROGRESS NOTE DATE OF SERVICE: December 17, 2018 This is a 78-year-old female who was seen by my partner yesterday in consultation. She was admitted to the hospital on December 15 and into the ICU on the same day. She came in with GI bleed, syncope and melena. Since she has been here, she has received 6 units of PRBCs. She apparently had an EGD done yesterday at the bedside on December 16, that shows a duodenal ulcer. The ulcer was injected with epinephrine and 2 clips were placed. This morning her hemoglobin was 10.6, at midnight it was 11. Currently, she is receiving 1 L of oxygen by nasal cannula and getting an IV of 0.9 at 100 mL an hour. The patient does have a history of chronic iron deficiency anemia, hypertension, hypothyroidism, trigeminal neuralgia, and osteoarthritis. Currently, she is resting comfortably. Denies any complaints. No additional bleeding. No pain. Seems to be relatively happy and without any major symptoms or problems at this time. Current vital signs are reviewed. Temperature 98.4 heart rate 117, respiratory rate 21, blood pressure 121/74, mean 89, saturations are 95% on 1 L nasal cannula. Appears in no acute distress. HEENT examination is grossly unremarkable. Mucous membranes are moist. Nasal O2 noted. NECK: Supple. Full range of motion. No adenopathy or thyromegaly. Neck veins are flat. Cardiovascular examination reveals regular rhythm and rate. S1, S2 normal. No S3, S4, or murmur. Heart rate is a little rapid at about 110 beats per minute. Lungs reveal mostly clear breath sounds. No wheezes, rhonchi, or crackles. Abdomen is soft. Bowel sounds are heard. Extremities are intact. No cyanosis, clubbing, or edema. Skin without rash. Neurologic examination is brief but nonfocal. Labs are reviewed. White count 9.1, hemoglobin 10.6, hematocrit 32.7, platelet count 136,000. Sodium 139, potassium 4.5, chloride 115, CO2 is 21 and anion gap is 3. BUN and creatinine were 37 and 0.66. No x-rays to report. Medications are reviewed. They all appeared to be appropriate. ASSESSMENT: 1. Upper gastrointestinal bleed secondary to duodenal ulcer, status post EGD with clipping and epinephrine injection of the ulcer. 2. Anemia secondary to upper gastrointestinal bleed, status post 6 units of PRBCs. 3. History of chronic iron deficiency anemia. 4. History of hypertension. 5. History of hypothyroidism. 6. Trigeminal neuralgia. 7. History of osteoarthritis. 8. Prior history of osteomyelitis. 9. 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 PLANS: The patient seems to be doing relatively well. She will be watched here in the unit for a couple more hours at least. If there is no additional bleeding, the patient could be transferred out. We will continue to follow closely. Hemoglobin remains stable. Last 2 hemoglobins were 11 and 10.6. She did receive 6 units of PRBCs. We will continue to watch closely. MMODL / IJN: [id number] /
[2018-12-17 10:29] VITALS: BMI 47.7
--- NOTE | 2018-12-17 11:44 | P.PN ---
Subjective Progress Note Date: 12/17/18 Principal diagnosis: Upper GI bleed, anemia of acute blood loss Patient seen lying in bed this morning. No further signs or symptoms of GI bleeding reported. The patient had EGD yesterday with a large duodenal ulcer seen. Objective - Vital Signs Vital signs: Vital Signs Temp 98.4 F 12/17/18 08:00 Pulse 72 12/17/18 11:00 Resp 18 12/17/18 11:00 BP 96/50 12/17/18 11:00 Pulse Ox 97 12/17/18 11:00 Intake & Output 12/16/18 12/17/18 12/17/18 18:59 06:59 18:59 Intake Total 6080 2320 500 Output Total 1070 560 255 Balance 5010 1760 245 Weight 126.2 kg 126.2 kg Intake: IV 2520 1700 500 Sodium Chloride 0.9% 1, 2000 000 ml @ 999 mls/hr IV . Q1H1M ONE Rx#:[id number] normal saline 520 1200 500 Oral 1080 Blood Product 2480 620 Rc As-1 Unit 310 [id number] Rc As-1 Unit 310 [id number] Rc As-1 Unit 0 310 [id number] Rc As-1 Unit 310 [id number] Rc As-1 Unit 310 [id number] Output: Urine 1070 560 255 Other: Voiding Method Indwelling Catheter Indwelling Catheter Indwelling Catheter - Exam On physical examination, patient appears comfortable in no apparent distress. HEAD: Normocephalic, atraumatic. EYES: No scleral icterus. No conjunctival injection. MOUTH: No lesions, tongue midline. NECK: Trachea midline, no gross abnormalities. CHEST: Clear to auscultation with no wheezing or rhonchi appreciated. ABDOMEN: Soft, obese. Bowel sounds are positive. No organomegaly. No guarding or rigidity. EXTREMITIES: No pedal edema. SKIN: No rashes, no jaundice. NEUROLOGIC: Alert and oriented x3. No focal deficits. - Labs CBC & Chem 7: 12/17/18 05:57 12/17/18 05:38 Labs: Abnormal Lab Results - Last 24 Hours (Table) 12/15/18 12/16/18 12/16/18 Range/Units 19:29 12:40 16:42 WBC (3.8-10.6) k/uL RBC 2.44 L 2.85 L (3.80-5.40) m/uL Hgb 7.0 L 8.0 L (11.4-16.0) gm/dL Hct 21.9 L 25.1 L (34.0-46.0) % MCHC (31.0-37.0) g/dL RDW 16.3 H 16.5 H (11.5-15.5) % Plt Count 148 L (150-450) k/uL Neutrophils # (1.3-7.7) k/uL Lymphocytes # 0.8 L 0.8 L (1.0-4.8) k/uL Chloride (98-107) mmol/L Carbon Dioxide (22-30) mmol/L BUN (7-17) mg/dL Glucose (74-99) mg/dL Calcium (8.4-10.2) mg/dL Crossmatch See Detail 12/17/18 12/17/18 12/17/18 Range/Units 00:37 05:38 05:57 WBC 11.4 H (3.8-10.6) k/uL RBC 3.64 L (3.80-5.40) m/uL Hgb 11.0 L D 10.6 L (11.4-16.0) gm/dL Hct 32.7 L (34.0-46.0) % MCHC 30.9 L (31.0-37.0) g/dL RDW 16.5 H 16.6 H (11.5-15.5) % Plt Count 108 L 136 L (150-450) k/uL Neutrophils # 10.6 H 8.1 H (1.3-7.7) k/uL Lymphocytes # 0.5 L 0.6 L (1.0-4.8) k/uL Chloride 115 H (98-107) mmol/L Carbon Dioxide 21 L (22-30) mmol/L BUN 37 H (7-17) mg/dL Glucose 140 H (74-99) mg/dL Calcium 7.9 L (8.4-10.2) mg/dL Crossmatch Assessment and Plan (1) GI bleed Narrative/Plan: Upper GI bleed secondary to a large duodenal ulcer with visible vessel noted. The patient is status post EGD with epinephrine injection and clip placement. Hemoglobin has remained stable overnight. No further signs or symptoms of GI bleed is reported. Current Visit: Yes Status: Acute Code(s): K92.2 - GASTROINTESTINAL HEMORRHAGE, UNSPECIFIED SNOMED Code(s): 39873781 (2) Symptomatic anemia Narrative/Plan: Symptomatic anemia of acute blood loss. Secondary to upper GI bleed. Current Visit: Yes Status: Acute Code(s): D64.9 - ANEMIA, UNSPECIFIED SNOMED Code(s): 850856289 Plan: Supportive care Would keep patient nothing by mouth except for sips of water with pills given l arge ulcer and high risk stigmata for rebleeding Continue Protonix 40 mg twice daily IV Continue to monitor hemoglobin and hematocrit and transfuse as needed Continue to monitor for signs or symptoms of GI bleeding If any further bleeding occurs would recommend surgical intervention given location of ulcer high risk stigmata Thank you for allowing us to participate in the care of the patient we will continue to follow
--- NOTE | 2018-12-17 12:17 | P.GSCN ---
History of Present Illness Consult date: 12/17/18 Reason for Consult: GI bleed Requesting physician: Edison Cosme History of present illness: CHIEF COMPLAINT: rectal bleeding HISTORY OF PRESENT ILLNESS: 78-year-old female who is admitted to hospital due to GI bleeding. Patient underwent EGD revealing 2 cm duodenal ulcer with large visible vessel and active bleeding status post injection of epinephrine followed by Endo Clip placement with good hemostasis by Dr. Zimmerman yesterday. Patient reports small dark maroon stool this morning. No bright red blood. No nausea or vomiting. Hemoglobin is 10.6 today. PAST MEDICAL HISTORY: See list. PAST SURGICAL HISTORY: See list. SOCIAL HISTORY: No illicit drug use. REVIEW OF SYSTEMS: CONSTITUTIONAL: Denies fever or chills. HEENT: Denies blurred vision, vision changes, or eye pain. Denies hemoptysis CARDIOVASCULAR: Denies chest pain or pressure. RESPIRATORY: No shortness of breath. GASTROINTESTINAL: Refer to HPI for pertinent findings HEMATOLOGIC: Denies bleeding disorders. GENITOURINARY: Denies any blood in urine. SKIN: Denies pruitis. Denies rash. PHYSICAL EXAM: VITAL SIGNS: Reviewed. GENERAL: Well-developed in no acute distress. HEENT: No sclera icterus. Extraocular movements grossly intact. Moist buccal mucosa. Head is atraumatic, normocephalic. ABDOMEN: Soft. Nondistended. Nontender. NEUROLOGIC: Alert and oriented. Cranial nerves II through XII grossly intact. ASSESSMENT: 1. GI Bleed, s/p EGD revealing duodenal ulcer 2. Acute blood loss anemia PLAN: 1. Diet per GI service 2. No surgical intervention advised at this time as hemoglobin is stable, but will continue to monitor hemoglobin Nurse practitioner note has been reviewed by physician. Signing provider agrees with the documented findings, assessment, and plan of care. Past Medical History Past Medical History: Hypertension, Thyroid Disorder Additional Past Medical History / Comment(s): anemia History of Any Multi-Drug Resistant Organisms: ESBL, VRE Year Discovered:: 2009 MDRO Source:: surgical site on right leg Past Surgical History: Appendectomy, Cholecystectomy, Hysterectomy, Orthopedic Surgery Past Anesthesia/Blood Transfusion Reactions: No Reported Reaction Past Psychological History: No Psychological Hx Reported Smoking Status: Never smoker Past Alcohol Use History: None Reported Past Drug Use History: None Reported Medications and Allergies Home Medications Medication Instructions Recorded Confirmed Type Allopurinol [Zyloprim] 300 mg PO DAILY 12/15/18 12/15/18 History Aspirin [[place] Aspirin EC] 81 mg PO DAILY 12/15/18 12/15/18 History Calcium Carbonate [Calcium] 600 mg PO DAILY 12/15/18 12/15/18 History Cholecalciferol (Vitamin D3) 2,000 unit PO Q7D 12/15/18 12/15/18 History [Vitamin D3] Cyanocobalamin (Vitamin B-12) 1,000 mcg PO DAILY 12/15/18 12/15/18 History [Vitamin B-12] Dicyclomine HCl 10 mg PO DAILY PRN 12/15/18 12/15/18 History Furosemide [Lasix] 20 mg PO DAILY 12/15/18 12/15/18 History HYDROcodone/APAP 7.5-325MG [[place] 1 tab PO DAILY 12/15/18 12/15/18 History 7.5-325] Levothyroxine Sodium [Synthroid] 75 mcg PO DAILY 12/15/18 12/15/18 History Losartan [Cozaar] 25 mg PO DAILY 12/15/18 12/15/18 History Multivitamin/Iron/Folic Acid 1 tab PO DAILY 12/15/18 12/15/18 History [Centrum Women Tablet] OXcarbazepine [Trileptal] 225 mg PO BID 12/15/18 12/15/18 History Propranolol HCl 60 mg PO DAILY 12/15/18 12/15/18 History Vits A,C,E/Lutein/Minerals 1 tab PO DAILY 12/15/18 12/15/18 History [Ocuvite with Lutein Tablet] Allergies Allergy/AdvReac Type Severity Reaction Status Date / Time daptomycin Allergy Unknown Verified 12/15/18 19:45 hydromorphone [From Dilaudid] Allergy Unknown Verified 12/15/18 19:45 latex Allergy Unknown Verified 12/15/18 19:45 neomycin Allergy Unknown Verified 12/15/18 19:45 Surgical - Exam Vital Signs Temp Pulse Resp BP Pulse Ox 98.5 F 91 18 62/38 97 12/15/18 19:08 12/15/18 19:08 12/15/18 19:08 12/15/18 19:08 12/15/18 19:08 Results - Labs 12/17/18 05:57 12/17/18 05:38 Abnormal Lab Results - Last 24 Hours (Table) 12/15/18 12/16/18 12/16/18 Range/Units 19:29 12:40 16:42 WBC (3.8-10.6) k/uL RBC 2.44 L 2.85 L (3.80-5.40) m/uL Hgb 7.0 L 8.0 L (11.4-16.0) gm/dL Hct 21.9 L 25.1 L (34.0-46.0) % MCHC (31.0-37.0) g/dL RDW 16.3 H 16.5 H (11.5-15.5) % Plt Count 148 L (150-450) k/uL Neutrophils # (1.3-7.7) k/uL Lymphocytes # 0.8 L 0.8 L (1.0-4.8) k/uL Chloride (98-107) mmol/L Carbon Dioxide (22-30) mmol/L BUN (7-17) mg/dL Glucose (74-99) mg/dL Calcium (8.4-10.2) mg/dL Crossmatch See Detail 12/17/18 12/17/18 12/17/18 Range/Units 00:37 05:38 05:57 WBC 11.4 H (3.8-10.6) k/uL RBC 3.64 L (3.80-5.40) m/uL Hgb 11.0 L D 10.6 L (11.4-16.0) gm/dL Hct 32.7 L (34.0-46.0) % MCHC 30.9 L (31.0-37.0) g/dL RDW 16.5 H 16.6 H (11.5-15.5) % Plt Count 108 L 136 L (150-450) k/uL Neutrophils # 10.6 H 8.1 H (1.3-7.7) k/uL Lymphocytes # 0.5 L 0.6 L (1.0-4.8) k/uL Chloride 115 H (98-107) mmol/L Carbon Dioxide 21 L (22-30) mmol/L BUN 37 H (7-17) mg/dL Glucose 140 H (74-99) mg/dL Calcium 7.9 L (8.4-10.2) mg/dL Crossmatch Diabetes panel 12/17/18 Range/Units 05:38 Sodium 139 (137-145) mmol/L Potassium 4.5 (3.5-5.1) mmol/L Chloride 115 H (98-107) mmol/L Carbon Dioxide 21 L (22-30) mmol/L BUN 37 H (7-17) mg/dL Creatinine 0.66 (0.52-1.04) mg/dL Glucose 140 H (74-99) mg/dL Calcium 7.9 L (8.4-10.2) mg/dL Calcium panel 12/17/18 Range/Units 05:38 Calcium 7.9 L (8.4-10.2) mg/dL Pituitary panel 12/17/18 Range/Units 05:38 Sodium 139 (137-145) mmol/L Potassium 4.5 (3.5-5.1) mmol/L Chloride 115 H (98-107) mmol/L Carbon Dioxide 21 L (22-30) mmol/L BUN 37 H (7-17) mg/dL Creatinine 0.66 (0.52-1.04) mg/dL Glucose 140 H (74-99) mg/dL Calcium 7.9 L (8.4-10.2) mg/dL Adrenal panel 12/17/18 Range/Units 05:38 Sodium 139 (137-145) mmol/L Potassium 4.5 (3.5-5.1) mmol/L Chloride 115 H (98-107) mmol/L Carbon Dioxide 21 L (22-30) mmol/L BUN 37 H (7-17) mg/dL Creatinine 0.66 (0.52-1.04) mg/dL Glucose 140 H (74-99) mg/dL Calcium 7.9 L (8.4-10.2) mg/dL
[2018-12-17 12:41] LABS: Anisocytosis Slight; Basophils % (A) 0 %; Eosinophils # (A) 0.1 k/uL (0-0.7); Eosinophils % (A) 1 %; HCT 28.6 % (34.0-46.0); HGB 9.4 gm/dL (11.4-16.0); Lymphocytes # (A) 0.9 k/uL (1.0-4.8); Lymphocytes % (A) 8 %; MCH 29.2 pg (25.0-35.0); MCHC 32.9 g/dL (31.0-37.0); MCV 88.8 fL (80.0-100.0); Mean Platelet Volume 8.6; Monocytes # (A) 0.7 k/uL (0-1.0); Monocytes % (A) 7 %; Neutrophils # (A) 9.2 k/uL (1.3-7.7); Neutrophils % (A) 83 %; Platelet Count 133 k/uL (150-450); Poikilocytosis Slight; RBC 3.22 m/uL (3.80-5.40); RDW 17.1 % (11.5-15.5); WBC 11.1 k/uL (3.8-10.6)
[2018-12-18 00:34] LABS: Anisocytosis Slight; Basophils % (A) 0 %; Eosinophils # (A) 0.1 k/uL (0-0.7); Eosinophils % (A) 1 %; HCT 24.1 % (34.0-46.0); HGB 8.2 gm/dL (11.4-16.0); Lymphocytes # (A) 0.9 k/uL (1.0-4.8); Lymphocytes % (A) 10 %; MCH 30.3 pg (25.0-35.0); MCHC 33.9 g/dL (31.0-37.0); MCV 89.2 fL (80.0-100.0); Monocytes # (A) 0.5 k/uL (0-1.0); Monocytes % (A) 5 %; Neutrophils # (A) 7.7 k/uL (1.3-7.7); Neutrophils % (A) 83 %; Platelet Count 118 k/uL (150-450); Poikilocytosis Slight; RDW 17.6 % (11.5-15.5); WBC 9.3 k/uL (3.8-10.6)
[2018-12-18] MEDS: SODIUM CHLORIDE 0.9% 1,000 ML IV SCH (03:30)
[2018-12-18 05:09] LABS: Anisocytosis Slight; Basophils % (A) 0 %; Eosinophils # (A) 0.1 k/uL (0-0.7); Eosinophils % (A) 2 %; HCT 24.2 % (34.0-46.0); HGB 7.5 gm/dL (11.4-16.0); Hypochromasia Slight; Lymphocytes # (A) 0.9 k/uL (1.0-4.8); Lymphocytes % (A) 14 %; MCHC 31.2 g/dL (31.0-37.0); MCV 93.1 fL (80.0-100.0); Mean Platelet Volume 7.6; Monocytes # (A) 0.5 k/uL (0-1.0); Monocytes % (A) 7 %; Neutrophils # (A) 5.2 k/uL (1.3-7.7); Neutrophils % (A) 77 %; Platelet Count 108 k/uL (150-450); WBC 6.8 k/uL (3.8-10.6)
[2018-12-18 05:17] LABS: ALT 43 U/L (9-52); AST 28 U/L (14-36); Albumin 1.8 g/dL (3.5-5.0); Alkaline Phosphatase 35 U/L (38-126); Anion Gap -1 mmol/L; Blood Urea Nitrogen 33 mg/dL (7-17); Calcium 7.8 mg/dL (8.4-10.2); Carbon Dioxide 22 mmol/L (22-30); Chloride 117 mmol/L (98-107); Glucose 92 mg/dL (74-99); Phosphorus 2.5 mg/dL (2.5-4.5); Potassium 3.9 mmol/L (3.5-5.1); Sodium 138 mmol/L (137-145); Total Bilirubin 0.3 mg/dL (0.2-1.3); Total Protein 3.4 g/dL (6.3-8.2)
[2018-12-18] MEDS: LEVOTHYROXINE 75 MCG TAB PO SCH (06:57)
[2018-12-18] MEDS ORDERED: Potassium Replacement Protocol 1 EACH MISC MISCELLANE PRN (07:11)
[2018-12-18] MEDS: POTASSIUM CHLORIDE 10 MEQ in WATER FOR INJECTION 1 100ML.BAG IVPB SCH ×2 (08:37→10:02)
[2018-12-18] MEDS: CYANOCOBALAMIN 500 MCG TAB PO SCH (08:38)
[2018-12-18] MEDS: ALLOPURINOL 300 MG TAB PO SCH (08:38)
[2018-12-18] MEDS: CALCIUM CARBONATE 500 MG CHEWABLE PO SCH (08:38)
[2018-12-18] MEDS: HYDROcodone/APAP 7.5-325MG 1 EACH TAB PO SCH (08:39)
[2018-12-18] MEDS: VIT A,C & E-LUTEIN-MINERALS 1 EACH TAB PO SCH (08:40)
[2018-12-18] MEDS: OXcarbazepine 150 MG TAB PO SCH (08:40)
[2018-12-18] MEDS: FUROSEMIDE 40 MG TAB PO SCH (08:40)
[2018-12-18] MEDS: PANTOPRAZOLE 40 MG/10 ML VIAL IVP SCH (08:40)
[2018-12-18] MEDS: LOSARTAN 25 MG TAB PO SCH (09:00)
[2018-12-18] MEDS: PROPRANOLOL 20 MG TAB PO SCH (09:00)
--- NOTE | 2018-12-18 09:28 | P.PN ---
Subjective This is a pleasant 78 years old female with past medical history of hypertension and hypothyroidism, left trigeminal neuralgia, chronic left leg pain. Who presents to the emergency room with hypotension and GI bleed. Her job with started yesterday and first 2 episodes of black tarry stool, followed by a third fresh blood bowel movement. No associated abdominal pain. No nausea vomiting. Patient usually uses hydrocodone for her pain control in her left leg and Trileptal for her trigeminal neuralgia, however she denies using NSAIDs prior to this episode. He denies chest pain. No dyspnea. No change in urine or bowel habits. No fever. On admission patient was hypotensive, 62/38 3. Patient received fluid and one unit of blood transfusion and transferred to the intensive care unit. Her current blood pressure is 103/52. Hemoglobin on arrival was 8.0, ca. No significant ST-T changes. me down to 7.3. No baseline hemoglobin in the system. Rest of CBC and BMP without significant abnormality. occult blood in the stool is positive. UA is not suggestive of infection. 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 Her current hemoglobin is 10.6. This morning. And her Vitas looks stable with blood pressure on the high side. However patient is alert awake and oriented. And she denies any abdominal pain or dyspnea. No chest pain 12/18/2018 Patient remains in the ICU, she had Stanly bowel movement today and hemoglobin dropped to 7.5.. Patient is getting 1 unit of blood transfusion. However she denies dizziness or chest pain. No dyspnea. No change in bowel or urine situation or habits. She is hemodynamically stable. Inspecting patient to be transferred to the general medical floor sewn. Objective - Vital Signs Vital signs: Vital Signs Temp 98.2 F 12/18/18 08:00 Pulse 78 12/18/18 08:30 Resp 16 12/18/18 08:30 BP 106/49 12/18/18 08:30 Pulse Ox 95 12/18/18 08:30 Intake & Output 12/17/18 12/18/18 12/18/18 18:59 06:59 18:59 Intake Total 2400 1560 300 Output Total 820 1025 300 Balance 1580 535 0 Weight 126.2 kg 127.9 kg Intake: IV 1200 1200 300 normal saline 1200 1200 300 Oral 1200 360 Output: Urine 820 1025 300 Other: Voiding Method Indwelling Catheter Indwelling Catheter Indwelling Catheter - Exam GENERAL: The patient is alert and oriented x3, not in any acute distress. Well developed, well nourished. HEENT: Pupils are round and equally reacting to light. EOMI. No scleral icterus. No conjunctival pallor. Normocephalic, atraumatic. No pharyngeal erythema. No thyromegaly. CARDIOVASCULAR: S1 and S2 present. No murmurs, rubs, or gallops. PULMONARY: Chest is clear to auscultation, no wheezing or crackles. ABDOMEN: Soft, nontender, nondistended, normoactive bowel sounds. No palpable organomegaly. MUSCULOSKELETAL: No joint swelling or deformity. EXTREMITIES: No cyanosis, clubbing, or pedal edema. NEUROLOGICAL: Gross neurological examination did not reveal any focal deficits. SKIN: No rashes. - Labs CBC & Chem 7: 12/18/18 04:53 12/18/18 04:53 Labs: Abnormal Lab Results - Last 24 Hours (Table) 12/15/18 12/17/18 12/18/18 Range/Units 19:29 11:46 00:25 WBC 11.1 H (3.8-10.6) k/uL RBC 3.22 L 2.70 L (3.80-5.40) m/uL Hgb 9.4 L 8.2 L (11.4-16.0) gm/dL Hct 28.6 L 24.1 L (34.0-46.0) % RDW 17.1 H 17.6 H (11.5-15.5) % Plt Count 133 L 118 L (150-450) k/uL Neutrophils # 9.2 H (1.3-7.7) k/uL Lymphocytes # 0.9 L 0.9 L (1.0-4.8) k/uL Chloride (98-107) mmol/L BUN (7-17) mg/dL Calcium (8.4-10.2) mg/dL Alkaline Phosphatase (38-126) U/L Total Protein (6.3-8.2) g/dL Albumin (3.5-5.0) g/dL Crossmatch See Detail 12/18/18 12/18/18 Range/Units 04:53 04:53 WBC (3.8-10.6) k/uL RBC 2.60 L (3.80-5.40) m/uL Hgb 7.5 L (11.4-16.0) gm/dL Hct 24.2 L (34.0-46.0) % RDW 17.0 H (11.5-15.5) % Plt Count 108 L (150-450) k/uL Neutrophils # (1.3-7.7) k/uL Lymphocytes # 0.9 L (1.0-4.8) k/uL Chloride 117 H (98-107) mmol/L BUN 33 H (7-17) mg/dL Calcium 7.8 L (8.4-10.2) mg/dL Alkaline Phosphatase 35 L (38-126) U/L Total Protein 3.4 L (6.3-8.2) g/dL Albumin 1.8 L (3.5-5.0) g/dL Crossmatch Assessment and Plan Assessment: Gastrointestinal bleed, bright red blood per rectum. Painless Acute blood loss anemia Hypertension on admission secondary to above History of hypertension Hypothyroidism History of trigeminal neuralgia Chronic left leg pain. Plan: This is a pleasant 78 years old female who presents with GI bleed. Transfuse blood as needed. Protonix twice a day. GI consult. Scope care team input is appreciated. Labs and medication were reviewed.. Continue same treatment. Continue with symptomatic treatment. Resume home medication. Monitor lytes and vitals. DVT and GI prophylaxis. Further recommendations of the clinical course of the gera field DVT prophylaxis: No heparin GI Prophylaxis: Ppi Prognosis is guarded
--- NOTE | 2018-12-18 10:52 | PN ---
PROGRESS NOTE DATE OF SERVICE: 12/18/2018 This is a 78-year-old female who was seen by my partner a couple days ago in consultation. She was admitted to the hospital on December 15, then into the ICU on the same day. She came with GI bleed, syncope and melena. She has received a total of 6 units of PRBCs and is going to receive another unit this morning. She had an EGD done yesterday at the bedside, which revealed evidence of a duodenal ulcer. Apparently, the ulcer was injected with epinephrine and 2 clips were placed. Her hemoglobin has drifted downward since that time. Initially, yesterday it was 2.6, then 9.4, then 8.2 and 7.5 this morning. Apparently overnight, she did have some maroon stools and that is why an additional unit of blood was ordered. She is receiving O2 at 2 L. She is getting a 0.9 saline IV at 100 mL an hour. She denies any pain. She denies any respiratory difficulty. MEDICAL HISTORY: She does have a history of chronic iron deficiency anemia, benign essential hypertension, hypothyroidism, trigeminal neuralgia, and osteoarthritis. Current vital signs are reviewed. Temperature 98.2. heart rate 78, respiratory rate 16, blood pressure 106/49, mean 68, room air saturation 95%. Appears in no acute distress. HEENT examination is grossly unremarkable. Mucous membranes are moist. No oral lesions. Neck is supple. Full range of motion. No adenopathy, thyromegaly or neck vein distention. Cardiovascular examination reveals regular rhythm rate. S1, S2 normal. No S3, S4, or murmur. Lungs reveal relatively clear breath sounds. No wheezes or rhonchi. Breath sounds are equal bilaterally. No crackles. Abdomen is soft. Bowel sounds are heard. No masses or tenderness. Extremities are intact. No cyanosis, clubbing, or edema. Skin without rash. Neurologic examination is brief but nonfocal. LAB DATA: Reviewed. White count 6.8, hemoglobin 7.5, hematocrit 24.2, platelet count 108,000. Sodium 138, potassium 3.9, chloride is 117, CO2 of 22, BUN and creatinine were 33 and 0.65. The rest of the labs are reviewed. Albumin is 1.8. No microbiologic studies to report. No recent chest x-ray. Medications are reviewed. ASSESSMENT: 1. Upper gastrointestinal bleed secondary to duodenal ulcer, status post EGD with clipping and epinephrine injection of the ulcer. 2. Anemia secondary to upper gastrointestinal bleed, status post 7 units of PRBCs. 3. History of chronic iron deficiency anemia. 4. History of hypertension. 5. History of hypothyroidism. 6. Trigeminal neuralgia. 7. History of osteoarthritis. 8. Prior history of osteomyelitis. 9. 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 PLAN: The patient will get another unit of blood. She has repeat blood set ordered. No additional recommendations are made. We will continue to follow the hemoglobin hematocrit very closely. She does not appear to be actively bleeding at this time. She did have some black stools and some maroon stools last night. No additional recommendations are made. Hemodynamic and respiratory status is stable. We will continue to observe closely. DEONTE / ROLAND: [id number] /
--- NOTE | 2018-12-18 12:48 | P.PN ---
Subjective Progress Note Date: 12/18/18 CHIEF COMPLAINT: rectal bleeding HISTORY OF PRESENT ILLNESS: Patient examined at the bedside. Patient is status post EGD revealing 2 cm duodenal ulcer with large visible vessel and active bleeding status post injection of epinephrine followed by Endo Clip placement with good hemostasis by Dr. Zimmerman. Patient denies abdominal pain. Denies nausea or vomiting. Patient reports large Maroon-colored stool last night. Hemoglobin today is 7.5, down from 10.6 yesterday morning. Patient is currently receiving 1 unit RBC transfusion PHYSICAL EXAM: VITAL SIGNS: Reviewed. GENERAL: Well-developed in no acute distress. HEENT: No sclera icterus. Extraocular movements grossly intact. Moist buccal mucosa. Head is atraumatic, normocephalic. ABDOMEN: Soft. Nondistended. Nontender. NEUROLOGIC: Alert and oriented. Cranial nerves II through XII grossly intact. ASSESSMENT: 1. GI Bleed, s/p EGD revealing duodenal ulcer 2. Acute blood loss anemia PLAN: 1. NPO 2. Dr. Recinos discussed possibility of surgery with patient and family. Patient will tentatively be boarded for repair of duodenal ulcer tomorrow. 3. Monitor hemoglobin Nurse practitioner note has been reviewed by physician. Signing provider agrees with the documented findings, assessment, and plan of care. Objective - Vital Signs Vital signs: Vital Signs Temp 97.9 F 12/18/18 12:38 Pulse 89 12/18/18 12:38 Resp 13 12/18/18 12:38 BP 121/55 12/18/18 12:38 Pulse Ox 98 12/18/18 11:00 Intake & Output 12/17/18 12/18/18 12/18/18 18:59 06:59 18:59 Intake Total 2400 1560 810 Output Total 820 1025 900 Balance 1580 535 -90 Weight 126.2 kg 127.9 kg Intake: IV 1200 1200 500 normal saline 1200 1200 500 Oral 1200 360 Blood Product 310 Rc As-1 Unit 310 [id number] Output: Urine 820 1025 900 Other: Voiding Method Indwelling Catheter Indwelling Catheter Indwelling Catheter - Labs CBC & Chem 7: 12/18/18 04:53 12/18/18 04:53 Labs: Abnormal Lab Results - Last 24 Hours (Table) 12/15/18 12/18/18 12/18/18 Range/Units 19:29 00:25 04:53 RBC 2.70 L 2.60 L (3.80-5.40) m/uL Hgb 8.2 L 7.5 L (11.4-16.0) gm/dL Hct 24.1 L 24.2 L (34.0-46.0) % RDW 17.6 H 17.0 H (11.5-15.5) % Plt Count 118 L 108 L (150-450) k/uL Lymphocytes # 0.9 L 0.9 L (1.0-4.8) k/uL Chloride (98-107) mmol/L BUN (7-17) mg/dL Calcium (8.4-10.2) mg/dL Alkaline Phosphatase (38-126) U/L Total Protein (6.3-8.2) g/dL Albumin (3.5-5.0) g/dL Crossmatch See Detail 12/18/18 Range/Units 04:53 RBC (3.80-5.40) m/uL Hgb (11.4-16.0) gm/dL Hct (34.0-46.0) % RDW (11.5-15.5) % Plt Count (150-450) k/uL Lymphocytes # (1.0-4.8) k/uL Chloride 117 H (98-107) mmol/L BUN 33 H (7-17) mg/dL Calcium 7.8 L (8.4-10.2) mg/dL Alkaline Phosphatase 35 L (38-126) U/L Total Protein 3.4 L (6.3-8.2) g/dL Albumin 1.8 L (3.5-5.0) g/dL Crossmatch
[2018-12-18 14:36] LABS: Anisocytosis Slight; HCT 26.7 % (34.0-46.0); HGB 8.5 gm/dL (11.4-16.0); Hypochromasia Slight; MCH 29.4 pg (25.0-35.0); MCHC 31.8 g/dL (31.0-37.0); MCV 92.4 fL (80.0-100.0); Mean Platelet Volume 7.2; Platelet Count 105 k/uL (150-450); RBC 2.89 m/uL (3.80-5.40); RDW 17.1 % (11.5-15.5); WBC 7.6 k/uL (3.8-10.6)
[2018-12-18 17:01] VITALS: TEMP 98.3
[2018-12-18 19:08] VITALS: BP 112/55; PULSE 92; RESP 17
--- NOTE | 2018-12-18 20:48 | P.PN ---
Subjective Progress Note Date: 12/18/18 Principal diagnosis: Upper GI bleed, anemia of acute blood loss The patient is seen lying in bed today with family bedside. She had a episode last night where she passed a large maroon-colored stool and subsequently was found to have a fall in hemoglobin. Patient was taken to the intensive care unit for further management. Objective - Vital Signs Vital signs: Vital Signs Temp 98.3 F 12/18/18 16:00 Pulse 92 12/18/18 19:00 Resp 17 12/18/18 19:00 BP 112/55 12/18/18 19:00 Pulse Ox 95 12/18/18 19:00 Intake & Output 12/18/18 12/18/18 12/19/18 06:59 18:59 06:59 Intake Total 1560 1610 Output Total 1025 2075 Balance 535 -465 Weight 127.9 kg Intake: IV 1200 1300 normal saline 1200 1300 Oral 360 Blood Product 310 Rc As-1 Unit 310 [id number] Output: Urine 1025 2075 Other: Voiding Method Indwelling Catheter Indwelling Catheter - Exam On physical examination, patient appears comfortable in no apparent distress. HEAD: Normocephalic, atraumatic. EYES: No scleral icterus. No conjunctival injection. MOUTH: No lesions, tongue midline. NECK: Trachea midline, no gross abnormalities. CHEST: Clear to auscultation with no wheezing or rhonchi appreciated. ABDOMEN: Soft, obese. Bowel sounds are positive. No organomegaly. No guarding or rigidity. EXTREMITIES: No pedal edema. SKIN: No rashes, no jaundice. NEUROLOGIC: Alert and oriented x3. No focal deficits. - Labs CBC & Chem 7: 12/18/18 14:14 12/18/18 04:53 Labs: Abnormal Lab Results - Last 24 Hours (Table) 12/15/18 12/18/18 12/18/18 Range/Units 19:29 00:25 04:53 RBC 2.70 L 2.60 L (3.80-5.40) m/uL Hgb 8.2 L 7.5 L (11.4-16.0) gm/dL Hct 24.1 L 24.2 L (34.0-46.0) % RDW 17.6 H 17.0 H (11.5-15.5) % Plt Count 118 L 108 L (150-450) k/uL Lymphocytes # 0.9 L 0.9 L (1.0-4.8) k/uL Chloride (98-107) mmol/L BUN (7-17) mg/dL Calcium (8.4-10.2) mg/dL Alkaline Phosphatase (38-126) U/L Total Protein (6.3-8.2) g/dL Albumin (3.5-5.0) g/dL Crossmatch See Detail 12/18/18 12/18/18 Range/Units 04:53 14:14 RBC 2.89 L (3.80-5.40) m/uL Hgb 8.5 L (11.4-16.0) gm/dL Hct 26.7 L (34.0-46.0) % RDW 17.1 H (11.5-15.5) % Plt Count 105 L (150-450) k/uL Lymphocytes # (1.0-4.8) k/uL Chloride 117 H (98-107) mmol/L BUN 33 H (7-17) mg/dL Calcium 7.8 L (8.4-10.2) mg/dL Alkaline Phosphatase 35 L (38-126) U/L Total Protein 3.4 L (6.3-8.2) g/dL Albumin 1.8 L (3.5-5.0) g/dL Crossmatch Assessment and Plan (1) GI bleed Narrative/Plan: Upper GI bleed secondary to a large duodenal ulcer with visible vessel noted. The patient is status post EGD with epinephrine injection and clip placement. Patient passed a maroon color stool yesterday with subsequent fall in hemoglobin, she was transferred to the ICU for further management. She denies any further signs or symptoms. Status: Acute Code(s): K92.2 - GASTROINTESTINAL HEMORRHAGE, UNSPECIFIED SNOMED Code(s): 47294233 (2) Symptomatic anemia Narrative/Plan: Symptomatic anemia of acute blood loss. Secondary to upper GI bleed. Status: Acute Code(s): D64.9 - ANEMIA, UNSPECIFIED SNOMED Code(s): 462186972 Plan: Supportive care Would keep patient nothing by mouth except for sips of water with pills given large ulcer and high risk stigmata for rebleeding Continue Protonix 40 mg twice daily IV Continue to monitor hemoglobin and hematocrit and transfuse as needed Continue to monitor for signs or symptoms of GI bleeding If any further bleeding occurs would recommend surgical intervention given location of ulcer high risk stigmata, or consideration for transfer to a tertiary center for CT angiogram with coiling is not a candidate for surgical intervention Thank you for allowing us to participate in the care of the patient we will continue to follow
[2018-12-19] MEDS ORDERED: LIDOCAINE 1% 20 ML VIAL (10MG/ML) FOR IV START INTRADERMA PRN (05:38)
[2018-12-19] MEDS ORDERED: DEXAMETHASONE SOD PHOSPHATE 10 MG/ML 1 ML VIAL IV ONE (05:38)
[2018-12-19] MEDS ORDERED: ONDANSETRON 4 MG/2 ML VIAL IVP ONE (05:38)
[2018-12-19] MEDS ORDERED: fentaNYL (PF) 50 MCG/ML 2 ML AMP IV PRN (05:38)
[2018-12-19] MEDS ORDERED: SCOPOLAMINE 1.5MG/72HR PATCH TRANSDERM ONE (05:38)
[2018-12-19] MEDS ORDERED: ONDANSETRON 4 MG/2 ML VIAL IVP PRN (05:38)
[2018-12-19] MEDS ORDERED: fentaNYL (PF) 50 MCG/ML 2 ML AMP IVP PRN (05:38)
[2018-12-19] MEDS ORDERED: MIDAZOLAM (PF) 2 MG/2 ML VIAL IV PRN (05:38)
[2018-12-19] MEDS ORDERED: LACTATED RINGERS 1,000 ML IV SCH (05:45)
== END 2018-12-18 20:13 | disposition short-term general hospital (02) | DRG 378 ==
LOC: EC 18:50 → 2SICU 21:18
PROVIDERS: ADMIT Internal Medicine; ATTEND Internal Medicine
PROC: 30233N1 Transfusion of Nonautologous Red Blood Cells into Peripheral Vein, Percutaneous Approach (ICD-10-PCS; principal; 2018-12-15)
PROC: 0W3P8ZZ Control Bleeding in Gastrointestinal Tract, Via Natural or Artificial Opening Endoscopic (ICD-10-PCS; 2018-12-16 19:00)
PROC: 0DB78ZX Excision of Stomach, Pylorus, Via Natural or Artificial Opening Endoscopic, Diagnostic (ICD-10-PCS; 2018-12-16 19:00)
DX: K26.4 Chronic or unspecified duodenal ulcer with hemorrhage (principal); D62 Acute posthemorrhagic anemia; D50.9 Iron deficiency anemia, unspecified; E03.9 Hypothyroidism, unspecified; G50.0 Trigeminal neuralgia; I10 Essential (primary) hypertension; K44.9 Diaphragmatic hernia without obstruction or gangrene; K57.30 Diverticulosis of large intestine without perforation or abscess without bleeding; Z79.82 Long term (current) use of aspirin; Z79.890 Hormone replacement therapy; Z79.899 Other long term (current) drug therapy; Z90.710 Acquired absence of both cervix and uterus; M79.605 Pain in left leg; G89.29 Other chronic pain; Z88.5 Allergy status to narcotic agent; Z88.1 Allergy status to other antibiotic agents; Z91.040 Latex allergy status
CPT/HCPCS: 36415; 43239; 43243; 43255; 80048; 80053; 81003; 82272; 83735; 84100; 84484; 85025; 85027; 85610; 85730; 86850; 86900; 86901; 86920; 88305; 93005; 96361; 96374; 99291

== ENCOUNTER → 2022-03-01 | Outpatient (CLI) | payer MEDICARE, BC ==
[2022-03-01 18:08] LABS: Erythrocyte Sedimentation Rate 12 mm/Hr (0-30)
[2022-03-01 18:19] LABS: Rheumatoid Factor, Qnt <10 IU/mL (0-15); Uric Acid 2.6 mg/dL (2.9-7.7)
[2022-03-01 18:25] LABS: Basophils # (A) 0.03 X 10*3/uL (0.00-0.10); Basophils % (A) 0.5 %; Eosinophils # (A) 0.09 X 10*3/uL (0.04-0.35); Eosinophils % (A) 1.4 %; HCT 32.4 % (37.2-46.3); HGB 10.2 g/dL (12.0-15.0); Immature Grans, Automated 0.5 %; Lymphocytes # (A) 0.81 X 10*3/uL (0.90-5.00); Lymphocytes % (A) 12.4 %; MCH 27.9 pg (27.0-32.0); MCHC 31.5 g/dL (32.0-37.0); MCV 88.8 fL (80.0-97.0); Mean Platelet Volume 10.2 fL (9.5-12.2); Monocytes % (A) 10.8 %; NRBC Per 100 WBC 0 /100 WBCS (0.0-0.0); Neutrophils # (A) 4.85 X 10*3/uL (1.80-7.70); Neutrophils % (A) 74.4 %; Platelet Count 217 X 10*3/uL (140-440); RBC 3.65 X 10*6/uL (4.10-5.20); RDW 16.4 % (11.5-14.5); WBC 6.51 X 10*3/uL (4.50-10.00)
[2022-03-01 20:55] LABS: Cyclic Citrull Pep IgG Unit <0.5 U/mL; Cyclic Citrullinated Pep IgG NEGATIVE (NEGATIVE)
== END | disposition home or self-care (01) ==
LOC: LABWHC1 12:19
PROVIDERS: ATTEND Orthopaedic Surgery
DX: M19.012 Primary osteoarthritis, left shoulder (principal); M75.102 Unspecified rotator cuff tear or rupture of left shoulder, not specified as traumatic; M25.511 Pain in right shoulder
CPT/HCPCS: 36415; 84550; 85025; 85652; 86038; 86140; 86200; 86431

== ENCOUNTER → 2022-04-20 | Outpatient (CLI) | payer MEDICARE, BC | END | disposition home or self-care (01) | LOC: LABWHC1 13:43 | PROVIDERS: ATTEND Internal Medicine | DX: Z53.9 Procedure and treatment not carried out, unspecified reason (principal) ==

== ENCOUNTER → 2023-04-14 | Outpatient (CLI) | payer MEDICARE, BC ==
[2023-04-15 03:00] LABS: BUN/Creat Ratio 35.71 Ratio (12.00-20.00); Calcium 9.5 mg/dL (8.7-10.3); Carbon Dioxide 22.8 mmol/L (21.6-31.8); Chloride 102 mmol/L (96-109); Glucose 85 mg/dL (70-110); Sodium 136 mmol/L (135-145)
== END | disposition home or self-care (01) ==
LOC: LABWHC1 11:59
PROVIDERS: ATTEND Internal Medicine Interventional Cardiology
DX: E87.1 Hypo-osmolality and hyponatremia (principal)
CPT/HCPCS: 36415; 80048

== ENCOUNTER 2024-01-04 23:14 | Observation (INO) | payer MEDICARE, BC ==
--- NOTE | 2024-01-04 23:56 | ED ---
GI Bleed HPI - General Chief complaint: GI Bleed Stated complaint: Rectal bleeding Time Seen by Provider: 01/04/24 23:28 Source: patient, RN notes reviewed, old records reviewed Mode of arrival: wheelchair Limitations: no limitations - History of Present Illness Initial comments: This is an 83-year-old female to the ER for evaluation today. Patient [facility] for evaluation regarding significant positive GI bleed with strong history of ulcer prior ulcer with significant blood loss, dark blood per stool complaint: blood on toilet paper, melena, blood streaked stool -: days(s) Severity scale (1-10): 3 Quality: painless Consistency: constant Improves with: none Worsens with: none Context: history of GI bleed Associated Symptoms: nausea Treatments Prior to Arrival: none - Related Data Home Medications Medication Instructions Recorded Confirmed Cholecalciferol (Vitamin D3) 5,000 unit PO DAILY 12/15/18 06/05/23 [Vitamin D3] Cyanocobalamin (Vitamin B-12) 1,000 mcg PO DAILY 12/15/18 06/05/23 [Vitamin B-12] Dicyclomine HCl 20 mg PO QID PRN 12/15/18 06/05/23 Levothyroxine Sodium [Synthroid] 75 mcg PO DAILY 12/15/18 06/05/23 OXcarbazepine [Trileptal] 300 mg PO BID 12/15/18 06/05/23 Propranolol HCl [Inderal] 60 mg PO DAILY 12/15/18 06/07/23 Vits A,C,E/Lutein/Minerals 2 tab PO BID 12/15/18 06/05/23 [Ocuvite with Lutein Tablet] allopurinoL [Zyloprim] 300 mg PO DAILY 12/15/18 06/05/23 Cataplex Supplement 1 dose PO DAILY 05/05/22 06/05/23 Ferofood Supplement 1 tab PO DAILY 05/05/22 06/05/23 Folic Acid 0.8 mg PO DAILY 05/05/22 06/05/23 Pantoprazole [Protonix] 40 mg PO DAILY 05/05/22 06/05/23 Renegen Dtx Supplement 1 tab PO DAILY 05/05/22 06/05/23 Sulfamethox-Tmp 800-160Mg [Bactrim 1 tab PO DAILY 05/05/22 06/05/23 DS 800-160 mg] Ferrous Sulfate [Feosol] 325 mg PO DAILY 06/05/23 06/05/23 oxyCODONE HCL/ACETAMINOPHEN 1 tab PO Q8HR PRN 06/05/23 06/07/23 [oxyCODONE HCL/ACETAMINOPHEN 7.5-325] predniSONE 5 mg PO DAILY 06/05/23 06/07/23 Allergies Allergy/AdvReac Type Severity Reaction Status Date / Time daptomycin Allergy Unknown Verified 01/04/24 23:25 hydromorphone [From Dilaudid] Allergy Unknown Verified 01/04/24 23:25 latex Allergy Rash/Hives, Verified 01/04/24 23:25 blister. elastic AdvReac Unknown Rash/Hives Uncoded 06/07/23 08:26 Review of Systems ROS Statement: Those systems with pertinent positive or pertinent negative responses have been documented in the HPI. ROS Other: All systems not noted in ROS Statement are negative. 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 recent oral open burning lesions requiring steroids History of Any Multi-Drug Resistant Organisms: ESBL, VRE Date of last positivie culture/infection: 2009 MDRO Source:: surgical site on left leg Past Surgical History: Appendectomy, Cholecystectomy, Hysterectomy, Orthopedic Surgery Additional Past Surgical History / Comment(s): multiple left leg surgeries with jazmin. (shattered femur) reconstruction foot surgery, total left and right knee, breast bx, varicose veins removed Past Anesthesia/Blood Transfusion Reactions: No Reported Reaction Past Psychological History: Anxiety Smoking Status: Never smoker - Past Family History Father Family Medical History: Cancer Additional Family Medical History / Comment(s): colo-rectal cancer Sister(s) Family Medical History: Cancer Additional Family Medical History / Comment(s): grades 1 through 5 teacher cancer Brother(s) Family Medical History: Cancer Additional Family Medical History / Comment(s): lung cancer Daughter(s) Family Medical History: Cancer Additional Family Medical History / Comment(s): melanoma General Exam Limitations: no limitations General appearance: alert, in no apparent distress Head exam: Present: atraumatic, normocephalic, normal inspection Eye exam: Present: normal appearance, PERRL, EOMI. Absent: scleral icterus, conjunctival injection, periorbital swelling ENT exam: Present: normal exam, mucous membranes moist Neck exam: Present: normal inspection. Absent: tenderness, meningismus, lymphadenopathy Respiratory exam: Present: normal lung sounds bilaterally. Absent: respiratory distress, wheezes, rales, rhonchi, stridor Cardiovascular Exam: Present: regular rate, normal rhythm, normal heart sounds. Absent: systolic murmur, diastolic murmur, rubs, gallop, clicks GI/Abdominal exam: Present: soft, normal bowel sounds. Absent: distended, tenderness, guarding, rebound, rigid Extremities exam: Present: normal inspection, full ROM, normal capillary refill. Absent: tenderness, pedal edema, joint swelling, calf tenderness Back exam: Present: normal inspection Neurological exam: Present: alert, oriented X3, CN II-XII intact Psychiatric exam: Present: normal affect, normal mood Skin exam: Present: warm, dry, intact, normal color. Absent: rash Course Vital Signs 01/04/24 23:22 Temperature 97.9 F Pulse Rate 71 Respiratory 18 Rate Blood Pressure 129/77 O2 Sat by Pulse 96 Oximetry - Reevaluation(s) Reevaluation #1: 01/05/24 02:54 Medical records reviewed Reevaluation #4: Was pt. sent in by a medical professional or institution (, PA, FORENSIC ENGINEER, urgent care, hospital, or half-way...) When possible be specific @ -no Did you speak to anyone other than the patient for history (EMS, parent, family, police, friend...)? What history was obtained from this source @ -no Did you review nursing and triage notes (agree or disagree)? Why? @ -agree Are old charts reviewed (outside hosp., previous admission, EMS record, old EKG, old radiological studies, urgent care reports/EKG's, half-way records)? Report findings @ -yes Differential Diagnosis (chest pain, altered mental status, abdominal pain women, abdominal pain men, vaginal bleeding, weakness, fever, dyspnea, syncope, headache, dizziness, GI bleed, back pain, seizure, CVA, palpatations, mental health, musculoskeletal)? @ -prior EKG interpreted by me (3pts min.). @ -yes X-rays interpreted by me (1pt min.). @ -yes negative for acute disease CT interpreted by me (1pt min.). @ -no U/S interpreted by me (1pt. min.). @ -no What testing was considered but not performed or refused? (CT, X-rays, U/S, labs)? Why? @ -none What meds were considered but not given or refused? Why? @ -none Did you discuss the management of the patient with other professionals (ariel barker i.e. , PA, FORENSIC ENGINEER, lab, RT, psych nurse, social welfare research worker, film splicer, teacher, commercial account officer, case checker)? Give summary @ -no Was smoking cessation discussed for >3mins.? @ -no Was critical care preformed (if so, how long)? @ -no Were there social determinants of health that impacted care today? How? (Homelessness, low income, unemployed, alcoholism, drug addiction, transportation, low edu. Level, literacy, decrease access to med. care, fpc, rehab)? @ -none Was there de-escalation of care discussed even if they declined (Discuss DNR or withdrawal of care, Hospice)? DNR status @ -no What co-morbidities impacted this encounter? (DM, HTN, Smoking, COPD, CAD, Cancer, CVA, ARF, Chemo, Hep., AIDS, mental health diagnosis, sleep apnea, morbid obesity)? @ -none Was patient admitted / discharged? Hospital course, mention meds given and route, prescriptions, significant lab abnormalities, going to OR and other pertinent info. @ - Undiagnosed new problem with uncertain prognosis? @ -no Drug Therapy requiring intensive monitoring for toxicity (Heparin, Nitro, Insulin, Cardizem)? @ -no Were any procedures done? @ -no Diagnosis/symptom? @ - Acute, or Chronic, or Acute on Chronic? @ -Acute Uncomplicated (without systemic symptoms) or Complicated (systemic symptoms)? @ -Complicated Side effects of treatment? @ -no Exacerbation, Progression, or Severe Exacerbation? @ -exacerbation Poses a threat to life or bodily function? How? (Chest pain, [place], [place], pneumonia, PE, COPD, DKA, ARF, appy, cholecystitis, CVA, Diverticulitis, Homicidal, Suicidal, threat to staff... and all critical care pts) @ -yes Reevaluation #5: Differential GI Bleed: Esophageal varices, aortoenteric fistula, Marcie-Bhatt, gastritis, peptic ulcer disease, diverticulosis, inflammatory bowel disease, hemorrhoids, fissure, colitis, malignancy, Meckels diverticulum, this is not meant to be an all- inclusive list. Medical Decision Making - Lab Data Result diagrams: 01/05/24 00:30 01/05/24 00:30 Lab Results 01/05/24 01/05/24 01/05/24 Range/Units 00:30 00:30 00:30 WBC 14.1 H (3.8-10.6) k/uL RBC 3.29 L (3.80-5.40) m/uL Hgb 9.7 L (11.4-16.0) gm/dL Hct 31.5 L (34.0-46.0) % MCV 95.7 (80.0-100.0) fL MCH 29.5 (25.0-35.0) pg MCHC 30.8 L (31.0-37.0) g/dL RDW 15.9 H (11.5-15.5) % Plt Count 193 (150-450) k/uL MPV 8.3 Neutrophils % 88 % Lymphocytes % 5 % Monocytes % 4 % Eosinophils % 2 % Basophils % 0 % Neutrophils # 12.4 H (1.3-7.7) k/uL Lymphocytes # 0.7 L (1.0-4.8) k/uL Monocytes # 0.5 (0-1.0) k/uL Eosinophils # 0.2 (0-0.7) k/uL Basophils # 0.0 (0-0.2) k/uL APTT 23.5 (22.0-30.0) sec Sodium 134 L (137-145) mmol/L Potassium 4.4 (3.5-5.1) mmol/L Chloride 104 (98-107) mmol/L Carbon Dioxide 21 L (22-30) mmol/L Anion Gap 9 mmol/L BUN 24 H (7-17) mg/dL Creatinine 0.69 (0.52-1.04) mg/dL Est GFR (CKD-EPI)AfAm >90 (>60 ml/min/1.73 sqM) Est GFR (CKD-EPI)NonAf 82 (>60 ml/min/1.73 sqM) Glucose 109 H (74-99) mg/dL Calcium 8.8 (8.4-10.2) mg/dL Magnesium 1.8 (1.6-2.3) mg/dL Total Bilirubin 1.5 H (0.2-1.3) mg/dL AST 82 H (14-36) U/L ALT 67 H (4-34) U/L Alkaline Phosphatase 582 H (38-126) U/L Troponin I (0.000-0.034) ng/mL Total Protein 5.7 L (6.3-8.2) g/dL Albumin 3.1 L (3.5-5.0) g/dL Lipase 37 (23-300) U/L Blood Type Blood Type Recheck Bld Type Recheck Status Antibody Screen Spec Expiration Date 01/05/24 01/05/24 Range/Units 00:30 00:35 WBC (3.8-10.6) k/uL RBC (3.80-5.40) m/uL Hgb (11.4-16.0) gm/dL Hct (34.0-46.0) % MCV (80.0-100.0) fL MCH (25.0-35.0) pg MCHC (31.0-37.0) g/dL RDW (11.5-15.5) % Plt Count (150-450) k/uL MPV Neutrophils % % Lymphocytes % % Monocytes % % Eosinophils % % Basophils % % Neutrophils # (1.3-7.7) k/uL Lymphocytes # (1.0-4.8) k/uL Monocytes # (0-1.0) k/uL Eosinophils # (0-0.7) k/uL Basophils # (0-0.2) k/uL APTT (22.0-30.0) sec Sodium (137-145) mmol/L Potassium (3.5-5.1) mmol/L Chloride (98-107) mmol/L Carbon Dioxide (22-30) mmol/L Anion Gap mmol/L BUN (7-17) mg/dL Creatinine (0.52-1.04) mg/dL Est GFR (CKD-EPI)AfAm (>60 ml/min/1.73 sqM) Est GFR (CKD-EPI)NonAf (>60 ml/min/1.73 sqM) Glucose (74-99) mg/dL Calcium (8.4-10.2) mg/dL Magnesium (1.6-2.3) mg/dL Total Bilirubin (0.2-1.3) mg/dL AST (14-36) U/L ALT (4-34) U/L Alkaline Phosphatase (38-126) U/L Troponin I 0.012 (0.000-0.034) ng/mL Total Protein (6.3-8.2) g/dL Albumin (3.5-5.0) g/dL Lipase (23-300) U/L Blood Type O Positive Blood Type Recheck O Pos Bld Type Recheck Status No Antibody Screen NEGATIVE Spec Expiration Date 01/08/2024 - 6038 - EKG Data -: EKG Interpreted by Me (EKG is sinus 68 RI 151 QRS 118 QTc 410.) Disposition Clinical Impression: GI bleed Disposition: ADMITTED IP TO THIS HOSP Condition: Serious Is patient prescribed a controlled substance at d/c from ED?: No Time of Disposition: 01:00
[2024-01-05] MEDS ORDERED: MORPHINE SULFATE 4 MG/ML SYRINGE IV PRN (00:57)
[2024-01-05] MEDS ORDERED: NALOXONE 0.4 MG/ML 1 ML VIAL IV PRN (00:57)
[2024-01-05] MEDS: SODIUM CHLORIDE 0.9% 500 ML 500 ML IV STA (01:02)
[2024-01-05] MEDS: PANTOPRAZOLE 40 MG/10 ML VIAL IVP STA (01:04)
[2024-01-05] MEDS: ONDANSETRON 4 MG/2 ML VIAL IVP STA (01:04)
[2024-01-05 01:11] LABS: Basophils % (A) 0 %; Eosinophils # (A) 0.2 k/uL (0-0.7); Eosinophils % (A) 2 %; HCT 31.5 % (34.0-46.0); HGB 9.7 gm/dL (11.4-16.0); Lymphocytes # (A) 0.7 k/uL (1.0-4.8); Lymphocytes % (A) 5 %; MCH 29.5 pg (25.0-35.0); MCHC 30.8 g/dL (31.0-37.0); MCV 95.7 fL (80.0-100.0); Mean Platelet Volume 8.3; Monocytes # (A) 0.5 k/uL (0-1.0); Monocytes % (A) 4 %; Neutrophils # (A) 12.4 k/uL (1.3-7.7); Neutrophils % (A) 88 %; Platelet Count 193 k/uL (150-450); RBC 3.29 m/uL (3.80-5.40); RDW 15.9 % (11.5-15.5); WBC 14.1 k/uL (3.8-10.6)
[2024-01-05 01:26] LABS: ALT 67 U/L (4-34); AST 82 U/L (14-36); African American GFR (CKD) >90 (>60 ml/min/1.73 sqM); Albumin 3.1 g/dL (3.5-5.0); Alkaline Phosphatase 582 U/L (38-126); Anion Gap 9 mmol/L; Blood Urea Nitrogen 24 mg/dL (7-17); Calcium 8.8 mg/dL (8.4-10.2); Carbon Dioxide 21 mmol/L (22-30); Chloride 104 mmol/L (98-107); Glucose 109 mg/dL (74-99); Lipase 37 U/L (23-300); Magnesium 1.8 mg/dL (1.6-2.3); Non-African American GFR(CKD) 82 (>60 ml/min/1.73 sqM); Potassium 4.4 mmol/L (3.5-5.1); Sodium 134 mmol/L (137-145); Total Bilirubin 1.5 mg/dL (0.2-1.3); Total Protein 5.7 g/dL (6.3-8.2)
[2024-01-05] MEDS: SODIUM CHLORIDE 0.9% 1,000 ML IV SCH (03:17)
[2024-01-05] MEDS: PANTOPRAZOLE 40 MG/10 ML VIAL IV SCH (08:33)
[2024-01-05] MEDS: IOPAMIDOL CONTRAST (ORAL USE) VIAL PO PRN (09:25)
--- NOTE | 2024-01-05 10:22 | P.CONS ---
History of Present Illness - Reason for Consult Consult date: 01/05/24 GI bleed Requesting physician: Royce Andres - Chief Complaint Melena - History of Present Illness This is a pleasant 83-year-old female with a history of chronic iron deficiency anemia, previous duodenal ulcer, GERD, hypertension, heart murmur, thyroid disorder and sleep apnea. She is known to gastroenterology and has had multiple endoscopies in the past. In 2018 she was found to have a bleeding duodenal ulcer which was treated. She continued to have ongoing iron deficiency anemia and due to that had a repeat upper endoscopy in 2021 with findings of previously healed duodenal ulcer. Her last EGD colonoscopy was in May 2023. Upper endoscopy with findings of gastritis and colonoscopy with findings of transverse colon polyp. She states that she has been having maroon-colored and dark stool for the last couple days duration. On admission she had a hemoglobin of 9.7. She was also noted to have elevated LFTs with total bilirubin 1.5 AST 82 ALT 67 and alkaline phosphatase 582. She denies any previous history of alcohol abuse, no history of liver disease or elevated liver enzymes in the past that she is aware of. She denies any abdominal pain, nausea or vomiting. She is not on any anticoagulation, does take occasional NSAID but not on a regular basis. Review of Systems REVIEW OF SYSTEMS: CARDIOPULMONARY: No chest pain or shortness of breath. Gastrointestinal: No epigastric or abdominal pain. No nausea or vomiting. No hematemesis, coffee-ground emesis. Patient reports melena for the last 1 to 2 days. GENITOURINARY: No dysuria or hematuria. MUSCULOSKELETAL: Reports normal range of motion. SKIN: No rashes. No jaundice. ENDOCRINE: No chills, fevers. No excessive weight gain or loss. No polydipsia or polyuria. PSYCHIATRIC: Unremarkable. NEUROLOGY: No change in mental status. Denies dizziness, headache. ENT: Vision unremarkable. CONSTITUTIONAL: No recent weight loss. No fever, chills, night sweats. 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 recent oral open burning lesions requiring steroids History of Any Multi-Drug Resistant Organisms: ESBL, VRE Year Discovered:: 2009 MDRO Source:: surgical site on left leg Past Surgical History: Appendectomy, Cholecystectomy, Hysterectomy, Orthopedic Surgery Additional Past Surgical History / Comment(s): multiple left leg surgeries with jazmin. (shattered femur) reconstruction foot surgery, total left and right knee, breast bx, varicose veins removed Past Anesthesia/Blood Transfusion Reactions: No Reported Reaction Past Psychological History: Anxiety Smoking Status: Never smoker - Past Family History Father Family Medical History: Cancer Additional Family Medical History / Comment(s): colo-rectal cancer Sister(s) Family Medical History: Cancer Additional Family Medical History / Comment(s): business process coordinator cancer Brother(s) Family Medical History: Cancer Additional Family Medical History / Comment(s): lung cancer Daughter(s) Family Medical History: Cancer Additional Family Medical History / Comment(s): melanoma Medications and Allergies Home Medications Medication Instructions Recorded Confirmed Type Levothyroxine Sodium [Synthroid] 75 mcg PO DAILY 12/15/18 01/05/24 History Propranolol HCl [Inderal] 60 mg PO DAILY 12/15/18 01/05/24 History allopurinoL [Zyloprim] 300 mg PO DAILY 12/15/18 01/05/24 History Pantoprazole [Protonix] 40 mg PO DAILY@1200 05/05/22 01/05/24 History Ferrous Sulfate [Feosol] 325 mg PO DAILY 06/05/23 01/05/24 History oxyCODONE HCL/ACETAMINOPHEN 1 tab PO Q6H PRN 06/05/23 01/05/24 History [oxyCODONE HCL/ACETAMINOPHEN 7.5-325] Dicyclomine [Bentyl] 20 mg PO BID 01/05/24 01/05/24 History Dicyclomine [Bentyl] 20 mg PO BID PRN 01/05/24 01/05/24 History Triamcinolone 0.025% Cream 1 applic TOPICAL Q2D 01/05/24 01/05/24 History [Kenalog 0.025% Cream] carBAMazepine [Carbatrol] 200 mg PO Q12HR 01/05/24 01/05/24 History Allergies Allergy/AdvReac Type Severity Reaction Status Date / Time daptomycin Allergy Rash/Hives Verified 01/05/24 07:13 latex Allergy Rash/Hives, Verified 01/05/24 07:13 blister. hydromorphone [From Dilaudid] AdvReac Confusion Verified 01/05/24 07:13 elastic Allergy Unknown Rash/Hives Uncoded 01/05/24 07:13 Physical Exam Vitals: Vital Signs Temp Pulse Resp BP Pulse Ox 01/05/24 06:00 69 19 154/93 97 01/05/24 04:22 63 18 146/79 99 01/05/24 03:25 68 18 155/89 97 01/05/24 02:25 62 18 149/86 98 01/05/24 01:25 64 18 130/73 8 L 01/04/24 23:22 97.9 F 71 18 129/77 96 Intake and Output 01/04/24 01/04/24 01/05/24 14:59 22:59 06:59 Other: Weight 102.058 kg General appearance: The patient is alert, oriented, appears in no acute distress. HET: Head is normocephalic and atraumatic. Conjunctiva pink. Sclera anicteric. Neck: Supple without lymphadenopathy. Trachea midline. Heart: Regular. Lungs: Equal expansion, normal respiratory effort. Abdomen: Soft, nontender, nondistended. Skin: No rashes. No jaundice. Extremities: Normal skin color and turgor. No pedal edema. Neurological: No focal deficits. Alert and oriented x3. Results CBC & Chem 7: 01/05/24 00:30 01/05/24 00:30 Labs: Abnormal Lab Results - Last 24 Hours (Table) 01/05/24 01/05/24 Range/Units 00:30 00:30 WBC 14.1 H (3.8-10.6) k/uL RBC 3.29 L (3.80-5.40) m/uL Hgb 9.7 L (11.4-16.0) gm/dL Hct 31.5 L (34.0-46.0) % MCHC 30.8 L (31.0-37.0) g/dL RDW 15.9 H (11.5-15.5) % Neutrophils # 12.4 H (1.3-7.7) k/uL Lymphocytes # 0.7 L (1.0-4.8) k/uL Sodium 134 L (137-145) mmol/L Carbon Dioxide 21 L (22-30) mmol/L BUN 24 H (7-17) mg/dL Glucose 109 H (74-99) mg/dL Total Bilirubin 1.5 H (0.2-1.3) mg/dL AST 82 H (14-36) U/L ALT 67 H (4-34) U/L Alkaline Phosphatase 582 H (38-126) U/L Total Protein 5.7 L (6.3-8.2) g/dL Albumin 3.1 L (3.5-5.0) g/dL Assessment and Plan (1) Melena Narrative/Plan: -year-old female with history of chronic iron deficiency anemia who has undergone multiple scopes over the last 3 to 4 years duration. In 2019 she did have a bleeding duodenal ulcer status posttreatment. Patient is reporting mar oon and black-colored stools over the last couple days duration. With history of duodenal ulcer need to consider possible source of bleeding. Will proceed with upper endoscopy. Current Visit: Yes Status: Acute Code(s): K92.1 - MELENA SNOMED Code(s): 3798591 (2) History of duodenal ulcer Current Visit: Yes Status: Acute Code(s): Z87.19 - PERSONAL HISTORY OF OTHER DISEASES OF THE DIGESTIVE SYSTEM SNOMED Code(s): 183420854 (3) Chronic iron deficiency anemia Current Visit: Yes Status: Acute Code(s): D50.9 - IRON DEFICIENCY ANEMIA, UNSPECIFIED SNOMED Code(s): 94160789 Plan: 1. Continue symptomatic and supportive care 2. Avoid NSAIDs 3. Keep n.p.o. 4. Daily CBC, transfuse for hemoglobin less than 7 5. Protonix 40 mg twice daily 6. Plan for upper endoscopy today 7. Further recommendations following upper endoscopy Thank you for allowing us to participate in the care of the patient, the GI service will sign off, gastroenterology will not be available at the hospital this weekend and through next week. If further evaluation by gastroenterology is required the patient will need transfer as per the primary team's discretion. Dr. Ruddy Zimmerman I agree with the dictator's note, documented as a scribe by Carrie Sargent.
[2024-01-05 11:16] LABS: Basophils % (A) 0 %; Eosinophils # (A) 0.1 k/uL (0-0.7); Eosinophils % (A) 1 %; HCT 30.9 % (34.0-46.0); HGB 9.5 gm/dL (11.4-16.0); Hypochromasia Slight; Lymphocytes # (A) 0.5 k/uL (1.0-4.8); Lymphocytes % (A) 5 %; MCH 29.8 pg (25.0-35.0); MCHC 30.6 g/dL (31.0-37.0); MCV 97.5 fL (80.0-100.0); Mean Platelet Volume 9.7; Monocytes # (A) 0.5 k/uL (0-1.0); Monocytes % (A) 5 %; Neutrophils # (A) 8.3 k/uL (1.3-7.7); Neutrophils % (A) 88 %; Platelet Count 191 k/uL (150-450); RBC 3.17 m/uL (3.80-5.40); RDW 15.9 % (11.5-15.5); WBC 9.5 k/uL (3.8-10.6)
--- NOTE | 2024-01-05 12:10 | CT ---
EXAMINATION TYPE: CT abdomen pelvis w con DATE OF EXAM: 01/05/2024 COMPARISON: NONE HISTORY: 83-year-old female Elevated LFTs. GI Bleed TECHNIQUE: Contiguous axial scanning of the abdomen and pelvis following administration of 100 ml Iso nasrin 300 IV contrast. Delayed images through the kidneys and coronal/sagittal reconstructions perform ed. CT DLP: 1942 mGycm Automated exposure control for dose reduction was used. FINDINGS: The heart is mildly enlarged without pericardial effusion. Strandy atelectasis in the lower lungs. Th ere is a trace right pleural effusion present. There is contour nodularity of the liver in keeping with underlying cirrhosis. No definite abnormal f ocal liver lesion is seen. Gallbladder surgically absent. Intrahepatic biliary ductal dilatation along with dilated bile duct up tor 1.4 cm with a filling defe ct in the distal bile duct measuring 8 mm, axial image 40 and coronal image 46. Prominent adjacent po rtacaval lymph node measuring up to 2.6 cm coronal image 15. Additional gastrohepatic ligament lymphadenopathy measuring up to 1.8 cm. Retroperitoneal preaortic lymph node at the level of the kidneys measures 1.4 cm. Fat density nodule measuring 1.9 cm right adrenal gland in keeping with adrenal myelolipoma. A few scattered renal cortical cysts measuring up to 3.1 cm. Kidneys otherwise show some perinephric edema which could be senescent change or relate to chronic kidney disease. Spleen upper limits of normal at 13.2 cm. The pancreas is diffusely atrophic. IVC filter present. No dilated small bowel, free fluid, or free air. Mild scattered stool with oral contrast progressing to the lower descending colon. Redundant sigmoid colon with mild proximal sigmoid diverticulosis. No pericolonic inflammatory change seen. There is moderate generalized anasarca change. Bladder is nondistended. Multiple pelvic phleboliths. Uterus surgically absent. Suspected visualizati on of both ovaries. Some presacral edema in keeping with anasarca/fluid overload. Bones: There is intramedullary nailing left femur. Degenerative dextroconvex scoliosis centered at th e upper lumbar spine. No osseous destructive process seen. IMPRESSION: 1. CIRRHOSIS. 2. INTRAHEPATIC AND EXTRAHEPATIC BILIARY DUCTAL DILATATION. BILE DUCT DILATED AT 1.4 CM WITH AN 8 MM FILLING DEFECT IN THE DISTAL BILE DUCT. CORRELATE FOR BILIARY OBSTRUCTION. FURTHER ERCP EVALUATION RE COMMENDED. WE NOTE THAT THE PATIENT IS STATUS POST CHOLECYSTECTOMY. 3. UPPER ABDOMINAL ADENOPATHY IN THE GASTROHEPATIC LIGAMENT AND PORTACAVAL REGION MEASURING UP TO 2.6 CM MAY BE REACTIVE. FOLLOW-UP TO EXCLUDE A NEOPLASTIC ETIOLOGY. 4. FLUID OVERLOAD STATE/THIRD SPACING GIVEN MODERATE ANASARCA. TRACE RIGHT PLEURAL EFFUSION.
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
[2024-01-05] MEDS ORDERED: LIDOCAINE 2% (PF) 20 MG/ML 5 ML VIAL ONE (16:34)
[2024-01-05] MEDS ORDERED: PROPOFOL 10 MG/ML 20 ML VIAL IV ONE (16:34)
[2024-01-05] MEDS: IV FLUID CONTINUATION 1,000 ML IV ONE ×2 (16:36→16:44)
--- NOTE | 2024-01-05 16:46 | P.PCN ---
Date of Procedure: 01/05/24 Procedure(s) Performed: BRIEF HISTORY: Patient is a 83-year-old, pleasant, white female scheduled for an upper endoscopy as a part of evaluation of acute GI bleed. She had 4 episodes of dark blood with small clots. Prior history of bleeding duodenal ulcer 4 years ago. Because of concern of upper GI bleed she is an upper endoscopy to evaluate further.. PROCEDURE PERFORMED: Esophagogastroduodenoscopy. PREOPERATIVE DIAGNOSIS:Acute GI bleed. IV sedation per anesthesia. PROCEDURE: After informed consent was obtained, the patient was brought into the endoscopy unit. IV sedation was administered by Anesthesia under continuous monitoring. Initially the Olympus GIF-140 video endoscope was inserted into the mouth. Esophagus intubated without any difficulty. It was gradually advanced into the stomach and duodenum and carefully examined. The bulb and the second part of the duodenum appeared normal. The scope at this time was withdrawn to the stomach, adequately insufflated with air, and upon careful examination, mucosa of the antrum,And mild antral gastritis. Mucosa of the body, cardia and the fundus appeared normal. The scope was then withdrawn into the esophagus. The GE junction was located at 39 cm from the incisors. The esophagus appeared normal. There were no erosions or ulcerations seen and the patient tolerated the procedure well. IMPRESSION: 1.Normal-appearing duodenum with no evidence of duodenitis or duodenal ulcer 2.Mild antral gastritis. 3.No active upper GI bleed RECOMMENDATIONS: The findings of this examination were discussed with the patient as well as a family. Continue with Protonix 40 mg daily. Advance diet as tolerated.
[2024-01-05 17:05] LABS: % Iron Saturation 6.37 (12.00-45.00)
[2024-01-06] MEDS: LEVOTHYROXINE 75 MCG TAB PO SCH (05:58)
[2024-01-06] MEDS: allopurinoL 300 MG TAB PO SCH (08:00)
[2024-01-06] MEDS: FERROUS SULFATE 325 MG TAB PO SCH (08:00)
[2024-01-06 09:53] LABS: Basophils # (A) 0.02 X 10*3/uL (0.00-0.10); Basophils % (A) 0.2 %; Eosinophils # (A) 0.09 X 10*3/uL (0.04-0.35); Eosinophils % (A) 1.1 %; HCT 30.4 % (37.2-46.3); HGB 9.4 g/dL (12.0-15.0); Lymphocytes # (A) 0.46 X 10*3/uL (0.90-5.00); Lymphocytes % (A) 5.6 %; MCH 29.6 pg (27.0-32.0); MCHC 30.9 g/dL (32.0-37.0); MCV 95.6 FL (80.0-97.0); Mean Platelet Volume 11.4 FL (9.5-12.2); Monocytes # (A) 0.66 X 10*3/uL (0.20-1.00); NRBC Per 100 WBC 0 X 10*3/uL (0.00-0.01); Neutrophils # (A) 6.95 X 10*3/uL (1.80-7.70); Neutrophils % (A) 84.6 %; Platelet Count 204 X 10*3/uL (140-440); RBC 3.18 X 10*6/uL (4.10-5.20); RDW 16.7 % (11.5-14.5); WBC 8.22 X 10*3/uL (4.50-10.00)
[2024-01-06 11:44] LABS: ALT 56 U/L (8-44); AST 45 U/L (13-35); Albumin 3.3 g/dL (3.8-4.9); Alkaline Phosphatase 495 U/L (41-126); BUN/Creat Ratio 18.83 Ratio (12.00-20.00); Blood Urea Nitrogen 11.3 mg/dL (9.0-27.0); Calcium 8.8 mg/dL (8.7-10.3); Carbon Dioxide 26.3 mmol/L (21.6-31.8); Chloride 104 mmol/L (96-109); Globulin 2.2 g/dL (1.6-3.3); Glucose 90 mg/dL (70-110); Magnesium 1.9 mg/dL (1.5-2.4); Phosphorus 3.1 mg/dL (2.4-5.1); Potassium 4.7 mmol/L (3.5-5.5); Sodium 139 mmol/L (135-145); Total Bilirubin 0.8 mg/dL (0.3-1.2); Total Protein 5.5 g/dL (6.2-8.2)
--- NOTE | 2024-01-06 13:34 | P.DS ---
Providers Date of admission: 01/05/24 00:58 Expected date of discharge: 01/06/24 Attending physician: Naomi Blankenship Consults: 01/05/24 00:57 Consult Physician Routine Consulting Provider: Mackenzie Zimmerman Consult Reason/Comments: gib Do you want consulting provider notified?: Yes Primary care physician: Ravinder Sinclair MD Hospital Course: Discharge diagnoses; GI bleed cirrhosis Interval and extrahepatic biliary ductal dilatation,bile duct dilated at 1.4 cm with an 8 mm filling defect in the distal bile duct correlate for biliary obstruction Acute blood loss Anemia Elevated LFTs Hypothyroidism History of trigeminal neuralgia Hospital course; patient is a 83-year-old lady with past medical history significant for hypertension, hypothyroidism, trigeminal neuralgia, GI bleed presented to the ER for complaint of blood in the stool. Patient history of prior GI bleed with EGD done in 2019 that showed patient to have a 2 cm duodenal ulcer that was clipped with epi injection by Dr. Juarez. Patient stated that she was all right yesterday when she noticed that there was some blood in her stools. Patient did not complain of nausea or vomiting. There is no current abdominal pain. There was no complaint of any hematemesis. Denies any fever or chills. There is no current orthopnea or PND. Because of the symptoms, patient presented to the ER Initial lab work done in the ER showed showed WBC 14.1, hemoglobin 0.7, platelet count 193, sodium 134, potassium 4.4, BUN 24, creatinine 0.69, AST 82, ALT 67, lipase 37 EKG done in the ER showed heart rate of 68, no ST segment elevation or depression seen, no T-wave inversions seen. Patient admitted to internal medicine service 01/05. Patient seen and examined. GI evaluated the patient, ordered EGD and CT abdominal pelvis. EGD done showed .Normal-appearing duodenum with no evidence of duodenitis or duodenal ulcer,Mild antral gastritis,No active upper GI bleed CT abdomen and pelvis done showed Cirrhosis, intraoperative and extrahepatic biliary ductal dilation, , ERCP was recommended Currently we have don't have GI coverage, discussed with patient's family and decision was made to transfer patient to [facility]. [facility] transfer line contacted and they accepted the transfer.being transferred in stable condition PHYSICAL EXAMINATION: GENERAL: The patient is alert and oriented x3, not in any acute distress. Well developed, well nourished. HEENT: Pupils are round and equally reacting to light. EOMI. No scleral icterus. No conjunctival pallor. Normocephalic, atraumatic. No pharyngeal erythema. No thyromegaly. CARDIOVASCULAR: S1 and S2 present. No murmurs, rubs, or gallops. PULMONARY: Chest is clear to auscultation, no wheezing or crackles. ABDOMEN: Soft, nontender, nondistended, normoactive bowel sounds. No palpable organomegaly. MUSCULOSKELETAL: No joint swelling or deformity. EXTREMITIES: No cyanosis, clubbing, or pedal edema. NEUROLOGICAL: Gross neurological examination did not reveal any focal deficits. SKIN: No rashes. Dictation was produced using [employer] dictation software. please excuse any grammatical, word or spelling errors. Patient Condition at Discharge: Fair Plan - Discharge Summary Discharge Rx Participant: Yes New Discharge Prescriptions: No Action allopurinoL [Zyloprim] 300 mg PO DAILY Propranolol HCl [Inderal] 60 mg PO DAILY Levothyroxine Sodium [Synthroid] 75 mcg PO DAILY Pantoprazole [Protonix] 40 mg PO DAILY@1200 Ferrous Sulfate [Feosol] 325 mg PO DAILY Dicyclomine [Bentyl] 20 mg PO BID Triamcinolone 0.025% Cream [Kenalog 0.025% Cream] 1 applic TOPICAL Q2D carBAMazepine [Carbatrol] 200 mg PO Q12HR oxyCODONE HCL/ACETAMINOPHEN [oxyCODONE HCL/ACETAMINOPHEN 7.5-325] 1 tab PO Q6H PRN PRN Reason: Pain Dicyclomine [Bentyl] 20 mg PO BID PRN PRN Reason: IBS Discharge Medication List Levothyroxine Sodium [Synthroid] 75 mcg PO DAILY 12/15/18 [History] Propranolol HCl [Inderal] 60 mg PO DAILY 12/15/18 [History] allopurinoL [Zyloprim] 300 mg PO DAILY 12/15/18 [History] Pantoprazole [Protonix] 40 mg PO DAILY@1200 05/05/22 [History] Ferrous Sulfate [Feosol] 325 mg PO DAILY 06/05/23 [History] oxyCODONE HCL/ACETAMINOPHEN [oxyCODONE HCL/ACETAMINOPHEN 7.5-325] 1 tab PO Q6H PRN 06/05/23 [History] Dicyclomine [Bentyl] 20 mg PO BID 01/05/24 [History] Dicyclomine [Bentyl] 20 mg PO BID PRN 01/05/24 [History] Triamcinolone 0.025% Cream [Kenalog 0.025% Cream] 1 applic TOPICAL Q2D 01/05/24 [History] carBAMazepine [Carbatrol] 200 mg PO Q12HR 01/05/24 [History] Follow up Appointment(s)/Referral(s): Ravinder Sinclair MD [Primary Care Provider] - 1-2 days
[2024-01-06 15:07] VITALS: BP 178/103; PULSE 106; RESP 16; TEMP 98.2
[2024-01-06] MEDS: PROPRANOLOL 20 MG TAB PO SCH (16:37)
== END 2024-01-06 17:22 | disposition other institution (70) ==
LOC: EC 23:14 → 4SSUR 01-05 00:58
PROVIDERS: ADMIT Hospitalist; ATTEND Hospitalist
DX: K92.2 Gastrointestinal hemorrhage, unspecified (principal); K29.70 Gastritis, unspecified, without bleeding; Z87.11 Personal history of peptic ulcer disease; Z79.899 Other long term (current) drug therapy; Z79.890 Hormone replacement therapy; Z79.52 Long term (current) use of systemic steroids; K21.9 Gastro-esophageal reflux disease without esophagitis; I10 Essential (primary) hypertension; G47.30 Sleep apnea, unspecified; D50.9 Iron deficiency anemia, unspecified; G47.33 Obstructive sleep apnea (adult) (pediatric); Z99.89 Dependence on other enabling machines and devices; E03.9 Hypothyroidism, unspecified; Z16.12 Extended spectrum beta lactamase (ESBL) resistance; F41.9 Anxiety disorder, unspecified
CPT/HCPCS: 96376 ×2; 96360; 96374; 96375; 99285; 86900; 86901; 80053 ×2; 82607; 82728; 82746; 83540; 83550; 83690; 83735 ×2; 84100; 84484; 85025 ×2; 85730; 86850; 74177; 43235; G0378 ×2; J2405; J2704; C9113 ×2; Q9967; J2001

== ENCOUNTER 2024-01-10 21:31 | Inpatient (IN) | payer MEDICARE, BC ==
[2024-01-10 21:54] LABS: Glucose,Whole Blood 123 mg/dL (70-110)
--- NOTE | 2024-01-10 22:15 | ED ---
Weakness HPI - General Chief complaint: Weakness Stated complaint: Fall Time Seen by Provider: 01/10/24 21:45 Source: patient, EMS, RN notes reviewed Mode of arrival: EMS Limitations: no limitations - History of Present Illness Initial comments: 83-year-old female presenting for weakness. States she was discharged from [facility] earlier today. She was admitted for 5 days and states she had 2 gallstones removed. She is here with her children who state they are concerned because she has general weakness and report she is more confused than normal. States they were getting her out of the car to arrive at home and she collapsed in their arms and fell to the ground. Denies any injury, she did not hit her head or lose consciousness, and she is not on thinners. They also report that her urine is foul-smelling. She is currently on Augmentin for bacterial prophylaxis status post surgery. Patient denies any current pain. Denies chest pain, cough, shortness of breath, fever, swelling. - Related Data Home Medications Medication Instructions Recorded Confirmed Levothyroxine Sodium [Synthroid] 75 mcg PO DAILY 12/15/18 01/05/24 Propranolol HCl [Inderal] 60 mg PO DAILY 12/15/18 01/05/24 allopurinoL [Zyloprim] 300 mg PO DAILY 12/15/18 01/05/24 Pantoprazole [Protonix] 40 mg PO DAILY@1200 05/05/22 01/05/24 Ferrous Sulfate [Iron (65 MG 325 mg PO DAILY 06/05/23 01/05/24 Elemental)] oxyCODONE HCL/ACETAMINOPHEN 1 tab PO Q6H PRN 06/05/23 01/05/24 [oxyCODONE HCL/ACETAMINOPHEN 7.5-325] Dicyclomine [Bentyl] 20 mg PO BID 01/05/24 01/05/24 Dicyclomine [Bentyl] 20 mg PO BID PRN 01/05/24 01/05/24 Triamcinolone 0.025% Cream 1 applic TOPICAL Q2D 01/05/24 01/05/24 [Kenalog 0.025% Cream] carBAMazepine [Carbatrol] 200 mg PO Q12HR 01/05/24 01/05/24 Allergies Allergy/AdvReac Type Severity Reaction Status Date / Time daptomycin Allergy Rash/Hives Verified 01/05/24 07:13 latex Allergy Rash/Hives, Verified 01/05/24 07:13 blister. hydromorphone [From Dilaudid] AdvReac Confusion Verified 01/05/24 07:13 elastic Allergy Unknown Rash/Hives Uncoded 01/05/24 07:13 Review of Systems ROS Statement: Those systems with pertinent positive or pertinent negative responses have been documented in the HPI. ROS Other: All systems not noted in ROS Statement are negative. 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 recent oral open burning lesions requiring steroids History of Any Multi-Drug Resistant Organisms: ESBL, VRE Date of last positivie culture/infection: 2009 MDRO Source:: surgical site on left leg Past Surgical History: Appendectomy, Cholecystectomy, Hysterectomy, Orthopedic Surgery Additional Past Surgical History / Comment(s): multiple left leg surgeries with jazmin. (shattered femur) reconstruction foot surgery, total left and right knee, breast bx, varicose veins removed Past Anesthesia/Blood Transfusion Reactions: No Reported Reaction Past Psychological History: Anxiety Smoking Status: Never smoker - Past Family History Father Family Medical History: Cancer Additional Family Medical History / Comment(s): colo-rectal cancer Sister(s) Family Medical History: Cancer Additional Family Medical History / Comment(s): valve assembler cancer Brother(s) Family Medical History: Cancer Additional Family Medical History / Comment(s): lung cancer Daughter(s) Family Medical History: Cancer Additional Family Medical History / Comment(s): melanoma General Exam Limitations: no limitations General appearance: alert, in no apparent distress Head exam: Present: atraumatic, normocephalic, normal inspection ENT exam: Present: normal exam, mucous membranes moist Neck exam: Present: normal inspection. Absent: tenderness, meningismus, l ymphadenopathy Respiratory exam: Present: normal lung sounds bilaterally. Absent: respiratory distress, wheezes, rales, rhonchi, stridor Cardiovascular Exam: Present: regular rate, normal rhythm, normal heart sounds, other (No pitting edema present bilaterally.). Absent: systolic murmur, diastolic murmur, rubs, gallop, clicks GI/Abdominal exam: Present: soft, normal bowel sounds. Absent: distended, tenderness, guarding, rebound, rigid Back exam: Present: normal inspection Neurological exam: Present: alert, oriented X3, CN II-XII intact Psychiatric exam: Present: normal affect, normal mood Skin exam: Present: warm, dry, intact, normal color. Absent: rash Course Vital Signs 01/10/24 01/10/24 21:32 22:49 Temperature 97.7 F Pulse Rate 60 59 L Respiratory 16 18 Rate Blood Pressure 139/75 142/82 O2 Sat by Pulse 96 96 Oximetry EKG Findings - EKG Results: EKG: interpreted by ALYSHA (Sinus bradycardia with no ST changes. Ventricular rate 58 bpm, AK interval 127, QRS duration 124, QT/QTc 434/432) Medical Decision Making - Medical Decision Making Was pt. sent in by a medical professional or institution (, PA, TRANSPORTATION ASSISTANT, urgent care, hospital, or [facility]...) When possible be specific @ -No Did you speak to anyone other than the patient for history (EMS, parent, family, police, friend...)? What history was obtained from this source @ -Patient's children supplemented history Did you review nursing and triage notes (agree or disagree)? Why? @ -I reviewed and agree with nursing and triage notes Were old charts reviewed (outside hosp., previous admission, EMS record, old EKG, old radiological studies, urgent care reports/EKG's, [facility] records)? Report findings @ -Old EKG and lab values reviewed. no change in EKG. Sodium values normal 1 week ago Differential Diagnosis (chest pain, altered mental status, abdominal pain women, abdominal pain men, vaginal bleeding, weakness, fever, dyspnea, syncope, headache, dizziness, GI bleed, back pain, seizure, CVA, palpatations, mental health, musculoskeletal)? @ -Differential Weakness: Hypoglycemia, shock, sepsis, hyponatremia, anemia, infection, OK, ETOH, adverse medicine reaction, overdose, stroke, this is not meant to be an all-inclusive list. EKG interpreted by me (3pts min.). @ -Normal sinus rhythm with no ST changes X-rays interpreted by me (1pt min.). @ -Chest x-ray revealed fluid overload, possible CHF exacerbation CT interpreted by me (1pt min.). @ -None done U/S interpreted by me (1pt. min.). @ -None done What testing was considered but not performed or refused? (CT, X-rays, U/S, labs)? Why? @ -None What meds were considered but not given or refused? Why? @ -None Did you discuss the management of the patient with other professionals (samson barry i.e. , PA, TRANSPORTATION ASSISTANT, lab, RT, psych nurse, social professionals, gear nicker, teacher, first aid officer, telehealth case manager)? Give summary @ -Patient was discussed and admitted to [facility]. Was smoking cessation discussed for >3mins.? @ -No Was critical care preformed (if so, how long)? @ -No Were there social determinants of health that impacted care today? How? (Homelessness, low income, unemployed, alcoholism, drug addiction, transportation, low edu. Level, literacy, decrease access to med. care, custodial, rehab)? @ -No Was there de-escalation of care discussed even if they declined (Discuss DNR or withdrawal of care, Hospice)? DNR status @ -No What co-morbidities impacted this encounter? (DM, HTN, Smoking, COPD, CAD, Cancer, CVA, ARF, Chemo, Hep., AIDS, mental health diagnosis, sleep apnea, morbid obesity)? @ -None Was patient admitted / discharged? Hospital course, mention meds given and route, prescriptions, significant lab abnormalities, going to OR and other pertinent info. @ -Patient was admitted. Patient was seen and evaluated for generalized weakness. Patient was discharged from [facility] today after ERCP. Chest x-ray significant for fluid overload, possible CHF exacerbation. Labs significant for hyponatremia at 126. Patient was admitted for CHF exacerbation and hyponatremia. Case discussed with Dr. Machado Undiagnosed new problem with uncertain prognosis? @ -No Drug Therapy requiring intensive monitoring for toxicity (Heparin, Nitro, Insulin, Cardizem)? @ -No Were any procedures done? @ -No Diagnosis/symptom? @ -Acute CHF exacerbation, hyponatremia Acute, or Chronic, or Acute on Chronic? @ -Acute Uncomplicated (without systemic symptoms) or Complicated (systemic symptoms)? @ -Complicated Side effects of treatment? @ -No Exacerbation, Progression, or Severe Exacerbation? @ -No Poses a threat to life or bodily function? How? (Chest pain, USA, OK, pneumonia, PE, COPD, DKA, ARF, appy, cholecystitis, CVA, Diverticulitis, Homicidal, Suicidal, threat to staff... and all critical care pts) @ -Yes - Lab Data Result diagrams: 01/10/24 22:06 01/10/24 22:06 Lab Results 01/10/24 01/10/24 01/10/24 Range/Units 21:53 22:06 22:06 WBC 8.9 (3.8-10.6) k/uL RBC 3.77 L (3.80-5.40) m/uL Hgb 11.3 L (11.4-16.0) gm/dL Hct 35.9 (34.0-46.0) % MCV 95.2 (80.0-100.0) fL MCH 29.9 (25.0-35.0) pg MCHC 31.4 (31.0-37.0) g/dL RDW 15.5 (11.5-15.5) % Plt Count 249 (150-450) k/uL MPV 7.9 Neutrophils % 80 % Lymphocytes % 7 % Monocytes % 7 % Eosinophils % 4 % Basophils % 0 % Neutrophils # 7.1 (1.3-7.7) k/uL Lymphocytes # 0.7 L (1.0-4.8) k/uL Monocytes # 0.6 (0-1.0) k/uL Eosinophils # 0.4 (0-0.7) k/uL Basophils # 0.0 (0-0.2) k/uL Hypochromasia Slight PT (10.0-12.5) sec INR (<1.2) APTT (22.0-30.0) sec Sodium 126 L (137-145) mmol/L Potassium 4.6 (3.5-5.1) mmol/L Chloride 96 L (98-107) mmol/L Carbon Dioxide 20 L (22-30) mmol/L Anion Gap 10 mmol/L BUN 16 (7-17) mg/dL Creatinine 0.65 (0.52-1.04) mg/dL Est GFR (CKD-EPI)AfAm >90 (>60 ml/min/1.73 sqM) Est GFR (CKD-EPI)NonAf 84 (>60 ml/min/1.73 sqM) Glucose 113 H (74-99) mg/dL POC Glucose (mg/dL) 123 H (70-110) mg/dL POC Glu Slab Miller Operator ID Glenn Salome Plasma Lactic Acid Justus (0.7-2.0) mmol/L Calcium 8.7 (8.4-10.2) mg/dL Total Bilirubin 0.7 (0.2-1.3) mg/dL AST 49 H (14-36) U/L ALT 41 H (4-34) U/L Alkaline Phosphatase 474 H (38-126) U/L Troponin I (0.000-0.034) ng/mL Total Protein 5.6 L (6.3-8.2) g/dL Albumin 2.9 L (3.5-5.0) g/dL 01/10/24 01/10/24 01/10/24 Range/Units 22:06 22:50 22:50 WBC (3.8-10.6) k/uL RBC (3.80-5.40) m/uL Hgb (11.4-16.0) gm/dL Hct (34.0-46.0) % MCV (80.0-100.0) fL MCH (25.0-35.0) pg MCHC (31.0-37.0) g/dL RDW (11.5-15.5) % Plt Count (150-450) k/uL MPV Neutrophils % % Lymphocytes % % Monocytes % % Eosinophils % % Basophils % % Neutrophils # (1.3-7.7) k/uL Lymphocytes # (1.0-4.8) k/uL Monocytes # (0-1.0) k/uL Eosinophils # (0-0.7) k/uL Basophils # (0-0.2) k/uL Hypochromasia PT 10.2 (10.0-12.5) sec INR 0.9 (<1.2) APTT 23.5 (22.0-30.0) sec Sodium (137-145) mmol/L Potassium (3.5-5.1) mmol/L Chloride (98-107) mmol/L Carbon Dioxide (22-30) mmol/L Anion Gap mmol/L BUN (7-17) mg/dL Creatinine (0.52-1.04) mg/dL Est GFR (CKD-EPI)AfAm (>60 ml/min/1.73 sqM) Est GFR (CKD-EPI)NonAf (>60 ml/min/1.73 sqM) Glucose (74-99) mg/dL POC Glucose (mg/dL) (70-110) mg/dL POC Glu Slab Miller Operator ID Plasma Lactic Acid Justus 1.5 (0.7-2.0) mmol/L Calcium (8.4-10.2) mg/dL Total Bilirubin (0.2-1.3) mg/dL AST (14-36) U/L ALT (4-34) U/L Alkaline Phosphatase (38-126) U/L Troponin I 0.019 (0.000-0.034) ng/mL Total Protein (6.3-8.2) g/dL Albumin (3.5-5.0) g/dL Disposition Clinical Impression: Acute exacerbation of CHF (congestive heart failure), Hyponatremia Disposition: ADMITTED IP TO THIS HOSP Condition: Stable Referrals: Ravinder Sinclair MD [Primary Care Provider] - 1-2 days Time of Disposition: 23:52
[2024-01-10] MEDS: SODIUM CHLORIDE 0.9% 500 ML 500 ML IV STA (22:17)
[2024-01-10 22:25] LABS: Basophils % (A) 0 %; Eosinophils # (A) 0.4 k/uL (0-0.7); Eosinophils % (A) 4 %; HCT 35.9 % (34.0-46.0); HGB 11.3 gm/dL (11.4-16.0); Hypochromasia Slight; Lymphocytes # (A) 0.7 k/uL (1.0-4.8); Lymphocytes % (A) 7 %; MCH 29.9 pg (25.0-35.0); MCHC 31.4 g/dL (31.0-37.0); MCV 95.2 fL (80.0-100.0); Mean Platelet Volume 7.9; Monocytes # (A) 0.6 k/uL (0-1.0); Monocytes % (A) 7 %; Neutrophils # (A) 7.1 k/uL (1.3-7.7); Neutrophils % (A) 80 %; Platelet Count 249 k/uL (150-450); RBC 3.77 m/uL (3.80-5.40); RDW 15.5 % (11.5-15.5); WBC 8.9 k/uL (3.8-10.6)
--- NOTE | 2024-01-10 22:28 | XR ---
EXAMINATION TYPE: XR chest 2V DATE OF EXAM: 01/10/2024 COMPARISON: Outside chest x-ray 2012 HISTORY: Weakness, frequent falls TECHNIQUE: Frontal and lateral views of the chest are obtained. FINDINGS: There is cardiomegaly with small right greater than left pleural effusions and mild centra l vascular congestion. The osseous structures are intact. IMPRESSION: Findings discussed with CHF exacerbation/fluid overload state noted.
[2024-01-10 22:35] LABS: ALT 41 U/L (4-34); AST 49 U/L (14-36); African American GFR (CKD) >90 (>60 ml/min/1.73 sqM); Albumin 2.9 g/dL (3.5-5.0); Alkaline Phosphatase 474 U/L (38-126); Anion Gap 10 mmol/L; Blood Urea Nitrogen 16 mg/dL (7-17); Calcium 8.7 mg/dL (8.4-10.2); Carbon Dioxide 20 mmol/L (22-30); Chloride 96 mmol/L (98-107); Glucose 113 mg/dL (74-99); Non-African American GFR(CKD) 84 (>60 ml/min/1.73 sqM); Potassium 4.6 mmol/L (3.5-5.1); Sodium 126 mmol/L (137-145); Total Bilirubin 0.7 mg/dL (0.2-1.3); Total Protein 5.6 g/dL (6.3-8.2)
[2024-01-10 23:16] LABS: INR 0.9 (<1.2); Partial Thromboplastin Time 23.5 sec (22.0-30.0); Prothrombin Time 10.2 sec (10.0-12.5)
[2024-01-11 01:28] LABS: Appearance,Urine Clear (Clear); Bacteria,Urine Occasional /hpf; Bilirubin,Urine Negative (Negative); Blood,Urine Negative (Negative); Color,Urine Light Yellow; Glucose,Urine (UA) Negative (Negative); Ketones,Urine Negative (Negative); Leukocyte Esterase,Urine Moderate (Negative); Nitrite,Urine Positive (Negative); PH, Urine 6.5 (5.0-8.0); Protein,Urine Negative (Negative); RBC,Urine 1 /hpf (0-5); Specific Gravity,Urine 1.007 (1.001-1.035); Squamous Epithelial Cell,Urine 5 /hpf (0-4); Urobilinogen,Urine <2.0 mg/dL (<2.0); WBC,Urine 9 /hpf (0-5)
[2024-01-11] MEDS ORDERED: DICYCLOMINE 20 MG TAB PO PRN (09:29)
[2024-01-11] MEDS: FERROUS SULFATE 325 MG TAB PO SCH (10:03)
[2024-01-11] MEDS: LEVOTHYROXINE 75 MCG TAB PO SCH (10:03)
[2024-01-11] MEDS: FUROSEMIDE 10 MG/ML 4 ML VIAL IV SCH (10:04)
[2024-01-11] MEDS: PANTOPRAZOLE 40 MG TABLET PO SCH (10:04)
[2024-01-11] MEDS: PROPRANOLOL 20 MG TAB PO SCH (10:05)
[2024-01-11] MEDS: oxyCODONE-APAP 7.5-325MG 1 EACH TAB PO PRN (10:08)
[2024-01-11 11:28] LABS: African American GFR (CKD) >90 (>60 ml/min/1.73 sqM); Anion Gap 4 mmol/L; Blood Urea Nitrogen 11 mg/dL (7-17); Carbon Dioxide 32 mmol/L (22-30); Chloride 96 mmol/L (98-107); Glucose 94 mg/dL (74-99); Non-African American GFR(CKD) 84 (>60 ml/min/1.73 sqM); Potassium 4.4 mmol/L (3.5-5.1); Sodium 132 mmol/L (137-145)
--- NOTE | 2024-01-11 12:11 | P.HPIM ---
History of Present Illness 83-year-old female came in after a fall. Patient was discharged from [facility] yesterday patient was transferred to [facility] about 5 to 6 days ago after she presented here with GI bleed and upper GI endoscopy showed duodenal ulcers which were clipped by manager of radiology although patient continued bleeding because of which patient was sent to [facility] for embolization. I do not have any medical records available from [facility] patient is unable to provide me what exact procedure was done at [facility]. Patient denies any bleeding at this time. Patient denies any shortness of breath orthopnea or paroxysmal nocturnal dyspnea patient also has mild peripheral edema patient denies any history of congestive heart failure history in the past patient's BNP is 2500 chest x-ray showing mild pleural effusion and pulmonary edema and her serum sodium which is 126 improved after dose of Lasix to 132. REVIEW OF SYSTEMS: CONSTITUTIONAL: No fever, HEENT: No recent visual problems or hearing problems. Denied any sore throat. CARDIOVASCULAR: No chest pain, orthopnea, PND, no palpitations, no syncope. PULMONARY: No shortness of breath, no cough, no hemoptysis. GASTROINTESTINAL: No diarrhea, no nausea, no vomiting, no abdominal pain. NEUROLOGICAL: No headaches, no weakness, no numbness. HEMATOLOGICAL: Denies any bleeding or petechiae. GENITOURINARY: Denies any burning micturition, frequency, or urgency. MUSCULOSKELETAL/RHEUMATOLOGICAL: Denies any joint pain, swelling, or any muscle pain. ENDOCRINE: Denies any polyuria or polydipsia. The rest of the 14-point review of systems is negative. PHYSICAL EXAMINATION: GENERAL: The patient is alert and oriented x3, not in any acute distress. Well developed, well nourished. HEENT: Pupils are round and equally reacting to light. EOMI. No scleral icterus. No conjunctival pallor. Normocephalic, atraumatic. No pharyngeal erythema. No thyromegaly. CARDIOVASCULAR: S1 and S2 present. No murmurs, rubs, or gallops. PULMONARY: Chest is clear to auscultation, no wheezing or crackles. ABDOMEN: Soft, nontender, nondistended, normoactive bowel sounds. No palpable organomegaly. MUSCULOSKELETAL: No joint swelling or deformity. EXTREMITIES: No cyanosis, clubbing, or very mild pitting pedal edema. NEUROLOGICAL: Gross neurological examination did not reveal any focal deficits. SKIN: No rashes. Assessment and plan -Generalized weakness and fall due to recent hospitalization, patient will need physical therapy occupational therapy evaluation and possible discharge to subacute rehabilitation. -Mild congestive heart failure possibly diastolic dysfunction will obtain echocardiogram patient does have peripheral edema as well give her 2 doses of Lasix after after that Lasix will be discontinued. Patient may have mild diastolic function considering that she was hospitalized recently probably received too much fluid making her have pulm edema I do not suspect any acute coronary syndromes leading to congestive heart failure. 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 recent oral open burning lesions requiring steroids History of Any Multi-Drug Resistant Organisms: ESBL, VRE Date of last positivie culture/infection: 2009 MDRO Source:: surgical site on left leg Past Surgical History: Appendectomy, Cholecystectomy, Hysterectomy, Orthopedic Surgery Additional Past Surgical History / Comment(s): multiple left leg surgeries with jazmin. (shattered femur) reconstruction foot surgery, total left and right knee, breast bx, varicose veins removed Past Anesthesia/Blood Transfusion Reactions: No Reported Reaction Past Psychological History: Anxiety Smoking Status: Never smoker - Past Family History Father Family Medical History: Cancer Additional Family Medical History / Comment(s): colo-rectal cancer Sister(s) Family Medical History: Cancer Additional Family Medical History / Comment(s): laborer tree tapping cancer Brother(s) Family Medical History: Cancer Additional Family Medical History / Comment(s): lung cancer Daughter(s) Family Medical History: Cancer Additional Family Medical History / Comment(s): melanoma Medications and Allergies Home Medications Medication Instructions Recorded Confirmed Type Levothyroxine Sodium [Synthroid] 75 mcg PO DAILY 12/15/18 01/11/24 History Propranolol HCl [Inderal] 60 mg PO DAILY 12/15/18 01/11/24 History allopurinoL [Zyloprim] 300 mg PO DAILY 12/15/18 01/11/24 History Pantoprazole [Protonix] 40 mg PO DAILY@1200 05/05/22 01/11/24 History Ferrous Sulfate [Iron (65 MG 325 mg PO DAILY 06/05/23 01/11/24 History Elemental)] oxyCODONE HCL/ACETAMINOPHEN 1 tab PO Q6H PRN 06/05/23 01/11/24 History [oxyCODONE HCL/ACETAMINOPHEN 7.5-325] Dicyclomine [Bentyl] 20 mg PO BID 01/05/24 01/11/24 History Dicyclomine [Bentyl] 20 mg PO BID PRN 01/05/24 01/11/24 History Triamcinolone 0.025% Cream 1 applic TOPICAL Q2D 01/05/24 01/11/24 History [Kenalog 0.025% Cream] carBAMazepine [Carbatrol] 200 mg PO Q12HR 01/05/24 01/11/24 History Amoxic-Pot Clav 875-125Mg 1 tab PO Q12HR 01/11/24 01/11/24 History [Augmentin 875-125] Allergies Allergy/AdvReac Type Severity Reaction Status Date / Time daptomycin Allergy Rash/Hives Verified 01/11/24 07:16 latex Allergy Rash/Hives, Verified 01/11/24 07:16 blister. hydromorphone [From Dilaudid] AdvReac Confusion Verified 01/11/24 07:16 elastic Allergy Unknown Rash/Hives Uncoded 01/05/24 07:13 Physical Exam Vitals: Vital Signs Temp Pulse Resp BP Pulse Ox 01/11/24 10:01 67 18 177/80 97 01/11/24 08:32 97.1 F L 67 18 183/89 96 01/11/24 06:00 65 20 175/84 01/11/24 05:00 65 16 168/77 01/11/24 04:00 56 L 15 169/91 01/11/24 03:00 62 14 178/85 01/11/24 02:00 56 L 14 165/85 01/11/24 01:46 60 16 165/85 96 01/11/24 01:00 60 19 172/92 01/11/24 00:00 60 17 152/80 01/10/24 23:33 59 L 14 152/80 01/10/24 22:49 59 L 18 142/82 96 01/10/24 21:32 97.7 F 60 16 139/75 96 Intake and Output 01/10/24 01/11/24 01/11/24 22:59 06:59 14:59 Other: Weight 99.79 kg Results CBC & Chem 7: 01/10/24 22:06 01/11/24 10:38 Labs: Abnormal Lab Results - Last 24 Hours (Table) 01/10/24 01/10/24 01/10/24 Range/Units 21:53 22:06 22:06 RBC 3.77 L (3.80-5.40) m/uL Hgb 11.3 L (11.4-16.0) gm/dL Lymphocytes # 0.7 L (1.0-4.8) k/uL Sodium 126 L (137-145) mmol/L Chloride 96 L (98-107) mmol/L Carbon Dioxide 20 L (22-30) mmol/L Glucose 113 H (74-99) mg/dL POC Glucose (mg/dL) 123 H (70-110) mg/dL Osmolality (275-295) mOsm/kg AST 49 H (14-36) U/L ALT 41 H (4-34) U/L Alkaline Phosphatase 474 H (38-126) U/L Total Protein 5.6 L (6.3-8.2) g/dL Albumin 2.9 L (3.5-5.0) g/dL Urine Nitrite (Negative) Ur Leukocyte Esterase (Negative) Urine WBC (0-5) /hpf Ur Squamous Epith Cells (0-4) /hpf Urine Bacteria (None) /hpf Urine Osmolality (400-1100) mOsm/kg 01/10/24 01/11/24 01/11/24 Range/Units 22:06 00:48 00:48 RBC (3.80-5.40) m/uL Hgb (11.4-16.0) gm/dL Lymphocytes # (1.0-4.8) k/uL Sodium (137-145) mmol/L Chloride (98-107) mmol/L Carbon Dioxide (22-30) mmol/L Glucose (74-99) mg/dL POC Glucose (mg/dL) (70-110) mg/dL Osmolality 271 L (275-295) mOsm/kg AST (14-36) U/L ALT (4-34) U/L Alkaline Phosphatase (38-126) U/L Total Protein (6.3-8.2) g/dL Albumin (3.5-5.0) g/dL Urine Nitrite Positive H (Negative) Ur Leukocyte Esterase Moderate H (Negative) Urine WBC 9 H (0-5) /hpf Ur Squamous Epith Cells 5 H (0-4) /hpf Urine Bacteria Occasional H (None) /hpf Urine Osmolality 220 L (400-1100) mOsm/kg // Range/Units 10:38 RBC (3.80-5.40) m/uL Hgb (11.4-16.0) gm/dL Lymphocytes # (1.0-4.8) k/uL Sodium 132 L (137-145) mmol/L Chloride 96 L (98-107) mmol/L Carbon Dioxide 32 H (22-30) mmol/L Glucose (74-99) mg/dL POC Glucose (mg/dL) (70-110) mg/dL Osmolality (275-295) mOsm/kg AST (14-36) U/L ALT (4-34) U/L Alkaline Phosphatase (38-126) U/L Total Protein (6.3-8.2) g/dL Albumin (3.5-5.0) g/dL Urine Nitrite (Negative) Ur Leukocyte Esterase (Negative) Urine WBC (0-5) /hpf Ur Squamous Epith Cells (0-4) /hpf Urine Bacteria (None) /hpf Urine Osmolality (400-1100) mOsm/kg
[2024-01-11] MEDS: HEPARIN SODIUM,PORCINE 5,000 UNIT/ML 1 ML VIAL SQ SCH (20:40)
--- NOTE | 2024-01-12 07:37 | CA ---
Transthoracic Echo Report Name: Ashtyn Silverman Age: 83 Gender: F : 1940 Exam Date: 01/11/2024 09:13 Exam Location: [place] Ht (in): 62 Wt (lb): 220 Ordering Physician: Marie Pena Attending/Referring Phys: Fur Glosser Emmie Key RDCS Procedure CPT: Indications: Heart failure Cardiac Hx: Technical Quality: Contrast 1: Total Dose (mL): Contrast 2: Total Dose (mL): MEASUREMENTS (Male / Female) Normal Values 2D ECHO LV Diastolic Diameter PLAX 5.2 cm 4.2 - 5.9 / 3.9 - 5.3 cm LV Systolic Diameter PLAX 4.3 cm IVS Diastolic Thickness 1.1 cm 0.6 - 1.0 / 0.6 - 0.9 cm LVPW Diastolic Thickness 1.2 cm 0.6 - 1.0 / 0.6 - 0.9 cm LV Relative Wall Thickness 0.5 RV Internal Dim ED PLAX 2.7 cm LA Systolic Diameter LX 3.9 cm 3.0 - 4.0 / 2.7 - 3.8 cm LV Diastolic Volume MOD BP 108.3 cm??? 67 - 155 / 56 - 104 cm??? LV Systolic Volume MOD BP 64.2 cm??? 22 - 58 / 19 - 49 cm??? LV Ejection Fraction MOD BP 40.7 % >= 55 % LV Cardiac Index MOD BP 1399.2 cm???/min???m??? LV Diastolic Volume MOD 4C 106.2 cm??? LV Systolic Volume MOD 4C 60.4 cm??? LV Ejection Fraction MOD 4C 43.2 % LV Cardiac Index MOD 4C 1455.2 cm???/min???m??? LV Diastolic Length 4C 6.9 cm LV Systolic Length 4C 6.4 cm LV Diastolic Volume MOD 2C 103.3 cm??? LV Systolic Volume MOD 2C 52.0 cm??? LV Ejection Fraction MOD 2C 49.6 % LV Cardiac Index MOD 2C 1624.7 cm???/min???m??? LV Diastolic Length 2C 6.1 cm LV Systolic Length 2C 6.0 cm LA Volume 97.4 cm??? 18 - 58 / 22 - 52 cm??? LA Volume Index 45.4 cm???/m??? 16 - 28 cm???/m??? M-MODE Aortic Root Diameter MM 3.4 cm MV E Point Septal Separation 1.1 cm AV Cusp Separation MM 1.8 cm DOPPLER AI Peak Velocity 169.0 cm/s AI Peak Gradient 11.4 mmHg MV Area PHT 4.7 cm??? MR Peak Velocity 625.7 cm/s MR Peak Gradient 156.6 mmHg Mitral E Point Velocity 96.0 cm/s Mitral A Point Velocity 91.2 cm/s Mitral E to A Ratio 1.1 MV Deceleration Time 162.6 ms TR Peak Velocity 320.2 cm/s TR Peak Gradient 41.0 mmHg Right Ventricular Systolic Press 44.4 mmHg PV Peak Velocity 175.3 cm/s PV Peak Gradient 12.3 mmHg PI Peak Gradient 19.1 mmHg FINDINGS Left Ventricle Left ventricular ejection fraction is estimated at 40-45 %. Left ventricular cavity size normal. Mildly increased septal wall thickness. Mildly increased posterior wall thickness. Mildly increased left ventricular diastolic volume. Moderately increased left ventricular systolic volume. Midly decreased left ventricular ejection fraction. Right Ventricle Normal right ventricular size and function. Moderate pulmonary hypertension. Right ventricular systolic pressure estimated at 50 mm hg. . Right Atrium Mild right atrial dilatation. Left Atrium Severely increased left atrial volume. Moderately increased left atrial area. Mitral Valve Mitral valve thickened, mitral annular calcification. Lpxo-ad-ogqjcaxe mitral regurgitation. Aortic Valve Trileaflet aortic valve. Tricuspid Valve Structurally normal tricuspid valve. Wzeh-rm-psaqqslj tricuspid regurgitation. Pulmonic Valve Structurally normal pulmonic valve. Moderate pulmonic regurgitation. Pericardium No pericardial effusion. Aorta Normal size aortic root and proximal ascending aorta. CONCLUSIONS Reduced LV systolic function ejection fraction 40-45% Elevated pulmonary artery pressures Left atrial enlargement Previewed by: Dr. Antoine Cavazos MD (Electronically Signed) Final Date: 12 January 2024 07:36
[2024-01-12] MEDS: allopurinoL 300 MG TAB PO SCH (09:04)
[2024-01-12 10:23] LABS: African American GFR (CKD) 77 (>60 ml/min/1.73 sqM); Anion Gap 5 mmol/L; Blood Urea Nitrogen 12 mg/dL (7-17); Calcium 9.1 mg/dL (8.4-10.2); Carbon Dioxide 33 mmol/L (22-30); Chloride 94 mmol/L (98-107); Glucose 113 mg/dL (74-99); Magnesium 1.8 mg/dL (1.6-2.3); Non-African American GFR(CKD) 67 (>60 ml/min/1.73 sqM); Sodium 132 mmol/L (137-145)
--- NOTE | 2024-01-12 13:10 | CONS ---
CONSULTATION CHIEF COMPLAINT: Congestive heart failure. HISTORY OF PRESENT ILLNESS: Ashtyn is an 83-year-old lady with history of hypothyroidism, recent GI bleed, who was admitted to [facility] recently secondary to GI bleed. She initially underwent EGD and clipping and because of continued bleeding, was transferred to [facility] where she apparently underwent embolization. She was discharged home and as she was getting into the halls, apparently felt weak, tired, and went down. Did not lose consciousness, was brought to the emergency room, did not have any shortness of breath. Has mild peripheral edema. Chest x-ray showed pulmonary congestion and her BNP was elevated. Hence, a diagnosis of heart failure was made. The patient has known mild cardiomyopathy and carries a history of congestive heart failure and sees Dr. Tia Aquino in the office. The patient's clinical presentation is consistent with a diagnosis of acute exacerbation of chronic systolic heart failure. PAST MEDICAL HISTORY: Significant for congestive heart failure, valvular heart disease, back pain, sleep apnea, hypertension, hypothyroidism and anemia. MEDICATIONS: Medications at home included, 1. Zyloprim. 2. Inderal. 3. Protonix. 4. Synthroid. 5. Bentyl. ALLERGIES: To latex, Dilaudid, and daptomycin. FAMILY HISTORY: Negative for premature coronary artery disease. SOCIAL HISTORY: Negative for current smoking, EtOH abuse, or drug abuse. REVIEW OF SYSTEMS: A review of systems has been performed, pertinents are as documented. PHYSICAL EXAMINATION: GENERAL: Comfortable at rest. VITAL SIGNS: Stable. CHEST: Reveals good air entry bilaterally. HEART: Reveals first and second heart sounds. Systolic murmur at the left lower sternal border. ABDOMEN: Soft. EXTREMITIES: Did not reveal any edema. Peripheral pulses are felt. LABORATORY DATA: Labs show a hemoglobin of 11.3, platelet count is 249, potassium is 4, creatinine is 0.8. BNP is elevated. Troponin is normal. Echocardiogram shows mild LV systolic dysfunction with yqpv-vq-jbmkhwfz tricuspid regurgitation and rusg-nt-xuipmlrt mitral regurgitation. ASSESSMENT AND PLAN: Acute on chronic systolic heart failure. PLAN: I will treat the patient with IV Lasix, sodium meticulously. MMODL / IJN: [id number] /
[2024-01-12] MEDS: FUROSEMIDE 10 MG/ML 2 ML VIAL IV SCH (16:54)
[2024-01-12] MEDS ORDERED: ACETAMINOPHEN TAB 325 MG TAB PO PRN (20:54)
--- NOTE | 2024-01-12 21:00 | P.PN ---
Subjective Progress Note Date: 01/12/24 83-year-old female came in after a fall. Patient was discharged from [facility] yesterday patient was transferred to [facility] about 5 to 6 days ago after she presented here with GI bleed and upper GI endoscopy showed duodenal ulcers which were clipped by cigarette roller although patient continued bleeding because of which patient was sent to [facility] for embolization. I do not have any medical records available from [facility] patient is unable to provide me what exact procedure was done at [facility]. Patient denies any bleeding at this time. Patient denies any shortness of breath orthopnea or paroxysmal nocturnal dyspnea patient also has mild peripheral edema patient denies any history of congestive heart failure history in the past patient's BNP is 2500 chest x-ray showing mild pleural effusion and pulmonary edema and her serum sodium which is 126 improved after dose of Lasix to 132. 01/12/2024 Patient is evaluated today on the medical floor. Patient had echocardiogram done showing EF 40-45% with elevated pulmonary artery pressures, left atrial enlargement, mild to moderate TR and mild to moderate MR. Continued on IV lasix 40 mg [id number] last dose will be later this evening and lasix will be discontinued. Patient was taken off her lasix on an outpatient basis due to low sodium levels. Patient is denying any shortness of breath. Was taking percocet for pain and states this caused her to feel dizzy. Review of Systems Constitutional: Denied any fatigue denied any fever. Cardio vascular: denied any chest pain, palpitations Gastrointestinal: denied any nausea, vomiting, diarrhea Pulmonary: Denied any shortness of breath cough Neurologic denied any new focal deficits All inpatient medications were reviewed and appropriate changes in these medications as dictated in the interval history and assessment and plan. PHYSICAL EXAMINATION: GENERAL: The patient is alert and oriented x3, not in any acute distress. Well developed, well nourished. HEENT: Pupils are round and equally reacting to light. EOMI. No scleral icterus. No conjunctival pallor. Normocephalic, atraumatic. No pharyngeal erythema. No thyromegaly. CARDIOVASCULAR: S1 and S2 present. No murmurs, rubs, or gallops. PULMONARY: Chest is clear to auscultation, no wheezing or crackles. ABDOMEN: Soft, nontender, nondistended, normoactive bowel sounds. No palpable organomegaly. MUSCULOSKELETAL: No joint swelling or deformity. EXTREMITIES: No cyanosis, clubbing, or very mild pitting pedal edema. NEUROLOGICAL: Gross neurological examination did not reveal any focal deficits. SKIN: No rashes. Assessment and plan -Generalized weakness and fall due to recent hospitalization, physical and occupational therapy were consulted and recommending discharge to subacute rehab -Dizziness likely due to narcotic medication, will be decreased to norco 5mg with tylenol added for mild pain. Avoid narcotics if possible. Orthostatic blood pressures ordered. -Mild congestive heart failure, systolic and diastolic dysfunction received IV lasix which has now been discontinued -Mild hypervolemic hyponatremia: Lasix as mentioned above. -Gastroesophageal reflux disease, recent GI bleed -Hypertension -Hypothyroidism -Sleep apnea uses CPAP machine at home -Obesity -Asymptomatic bacteriuria will not require any antibiotics at this time DVT prophylaxis: Subcutaneous heparin GI prophylaxis: Protonix Plan Stop IV lasix and monitor the patient. Repeat labs in the AM. Cardiology following closely. Check orthostatic blood pressure. Patient requires 3 night inpatient hospital stay in order to discharge to subacute rehab. She was just at [facility] for 1 week, Social work following and checking for inpatient status there. The impression and plan of care has been dictated by Monie Velazco Nurse Practitioner as directed. Dr. Netta MD I have performed a history and physical examination and medical decision making of this patient, discussed the same with the dictator, and agree with the dictators assessment and plan as written, documented as a scribe. Based on total visit time, I have performed more than 50% of this visit. Objective - Vital Signs Vital signs: Vital Signs Temp 98.0 F 01/12/24 12:28 Pulse 64 01/12/24 12:28 Resp 16 01/12/24 12:28 BP 123/57 01/12/24 12:28 Pulse Ox 96 01/12/24 12:28 FiO2 Intake & Output 01/11/24 01/12/24 01/12/24 18:59 06:59 18:59 Intake Total 472 Output Total 600 Balance -600 472 Weight 98 kg Intake: IV 10 Invasive Line 1 10 Oral 462 Output: Urine 600 Other: Voiding Method Bedside Commode Bedside Commode Diaper Diaper External Catheter External Catheter # Voids 1 1 # Bowel Movements 2 - Labs CBC & Chem 7: 01/10/24 22:06 01/12/24 09:10 Labs: Abnormal Lab Results - Last 24 Hours (Table) 01/12/24 Range/Units 09:10 Sodium 132 L (137-145) mmol/L Chloride 94 L (98-107) mmol/L Carbon Dioxide 33 H (22-30) mmol/L Glucose 113 H (74-99) mg/dL Assessment and Plan Time with Patient: Less than 30
[2024-01-12] MEDS: SODIUM CHLORIDE 0.9% 500 ML 500 ML IV ONE (21:18)
[2024-01-12] MEDS: MELATONIN 5 MG TABLET PO SCH (21:19)
[2024-01-12] MEDS: MAGNESIUM SULFATE-D5W PMX 1 GM in DEXTROSE/WATER 1 100ML.BAG IVPB ONE (21:19)
[2024-01-13 09:18] LABS: African American GFR (CKD) 89 (>60 ml/min/1.73 sqM); Anion Gap 3 mmol/L; Blood Urea Nitrogen 18 mg/dL (7-17); Calcium 8.4 mg/dL (8.4-10.2); Carbon Dioxide 32 mmol/L (22-30); Chloride 97 mmol/L (98-107); Glucose 93 mg/dL (74-99); Non-African American GFR(CKD) 77 (>60 ml/min/1.73 sqM); Sodium 132 mmol/L (137-145)
--- NOTE | 2024-01-13 11:35 | P.PN ---
Subjective Progress Note Date: 01/13/24 History of present illness: This is an 83-year-old female with past medical history of recent GI bleed at [facility] status post EGD and clipping and status post embolization. Patient following that was having weakness tiredness and fell down. She has a past medical history significant for CHF and mild cardiomyopathy. She follows with Dr. BRIDGER Aquino in the office. Echocardiogram revealed EF of 40 to 45%. Elevated pulmonary artery pressures. Left atrial enlargement. Blood pressures have been on the low side this morning 97/57, heart rate in the 60s and 70s, pulse ox 94% on room air. Last evening, patient had an episode after eating dinner where her blood pressure dropped to 74/44 not long after IV Lasix 20 mg was given. Morning dose of IV Lasix was held. Patient also received a 500 cc fluid bolus last evening over a 5-hour period. Physical examination: Gen: This is an 83-year-old female in no acute distress VS: reviewed HEENT: Head is atraumatic, normocephalic. Pupils equal, round. Sclerae is anicteric. NECK: Supple. No JVD. LUNGS: Clear to auscultation. No wheezes or rhonchi. No intercostal retractions. HEART: Regular rate and rhythm. Systolic murmur at the left lower sternal border. ABDOMEN: Soft No tenderness. EXTREMITIES: No pedal edema. No calf tenderness. NEUROLOGICAL: Patient is awake, alert and oriented x3. Assessment: Acute on chronic systolic heart failure Hypotension Recent GI bleed Plan: Patient's home cardiac medication is Inderal 60 mg daily Start patient on midodrine 5 mg 3 times daily If blood pressure recovers after dose of midodrine, start patient on IV Lasix 20 mg daily Monitor LISETTE, daily weights, electrolytes and renal function Further recommendations to follow based upon clinical course Nurse practitioner note has been reviewed, I agree with documented findings and plan of care. Patient was seen and examined. Objective - Vital Signs Vital signs: Vital Signs Temp 97.9 F 01/13/24 08:12 Pulse 74 01/13/24 08:12 Resp 16 01/13/24 08:12 BP 97/57 01/13/24 08:12 Pulse Ox 94 L 01/13/24 08:12 FiO2 Intake & Output 01/12/24 01/13/24 01/13/24 18:59 06:59 18:59 Intake Total 600 10 Output Total 300 Balance 600 -290 Weight 95.1 kg Intake: IV 20 10 Invasive Line 1 20 10 Oral 580 Output: Urine 300 Other: Voiding Method Bedside Commode Bedside Commode Bedside Commode Diaper Diaper Diaper External Catheter External Catheter External Catheter # Voids 1 - Labs CBC & Chem 7: 01/10/24 22:06 01/13/24 06:25 Labs: Abnormal Lab Results - Last 24 Hours (Table) 01/12/24 01/13/24 Range/Units 09:10 06:25 Sodium 132 L 132 L (137-145) mmol/L Chloride 94 L 97 L (98-107) mmol/L Carbon Dioxide 33 H 32 H (22-30) mmol/L BUN 18 H (7-17) mg/dL Glucose 113 H (74-99) mg/dL
[2024-01-13] MEDS: MIDODRINE 5 MG TAB PO SCH (11:36)
[2024-01-13] MEDS: FUROSEMIDE 10 MG/ML 2 ML VIAL IV SCH (13:52)
--- NOTE | 2024-01-14 06:26 | P.PN ---
Subjective Progress Note Date: 01/13/24 83-year-old female came in after a fall. Patient was discharged from [facility] yesterday patient was transferred to [facility] about 5 to 6 days ago after she presented here with GI bleed and upper GI endoscopy showed duodenal ulcers which were clipped by associate faculty although patient continued bleeding because of which patient was sent to [facility] for embolization. I do not have any medical records available from [facility] patient is unable to provide me what exact procedure was done at [facility]. Patient denies any bleeding at this time. Patient denies any shortness of breath orthopnea or paroxysmal nocturnal dyspnea patient also has mild peripheral edema patient denies any history of congestive heart failure history in the past patient's BNP is 2500 chest x-ray showing mild pleural effusion and pulmonary edema and her serum sodium which is 126 improved after dose of Lasix to 132. 01/12/2024 Patient is evaluated today on the medical floor. Patient had echocardiogram done showing EF 40-45% with elevated pulmonary artery pressures, left atrial enlargement, mild to moderate TR and mild to moderate MR. Continued on IV lasix 40 mg [id number] last dose will be later this evening and lasix will be discontinued. Patient was taken off her lasix on an outpatient basis due to low sodium levels. Patient is denying any shortness of breath. Was taking percocet for pain and states this caused her to feel dizzy. 01/13/2024 Patient is seen this morning currently sitting up in the chair with no acute overnight issues noted. Patient with significant weakness as well as CHF exacerbation being followed by cardiology. Patient's blood pressures were on the lower side and attempting to continue with IV Lasix for diuresis although patient reporting increasing lightheadedness and dizziness. Midodrine being started and cardiology recommending follow-up if blood pressure is improved and tolerating then give the IV Lasix. Patient continues with lower extremity mild edema noted, nonpitting. Orthostatics evaluated and were negative. Will DC propranolol as well. Patient to be reevaluated by PT/OT therapy as patient is significantly weak and would benefit from ECF. Case management/social work to follow-up on Monday regarding discharge planning. Patient is afebrile with no reports of chest pain or shortness of breath. Patient reports to tolerating diet with no reported nausea or vomiting. Review of Systems Constitutional: Denied any fatigue denied any fever. Cardio vascular: denied any chest pain, palpitations Gastrointestinal: denied any nausea, vomiting, diarrhea Pulmonary: Denied any shortness of breath cough Neurologic reports of generalized weakness All inpatient medications were reviewed and appropriate changes in these medications as dictated in the interval history and assessment and plan. PHYSICAL EXAMINATION: GENERAL: The patient is alert and oriented x3, not in any acute distress. Well developed, well nourished. Obese, elderly appearing HEENT: Pupils are round and equally reacting to light. EOMI. No scleral icterus. No conjunctival pallor. Normocephalic, atraumatic. No pharyngeal erythema. No thyromegaly. CARDIOVASCULAR: S1 and S2 muffled PULMONARY: Diminished breath sounds bilaterally otherwise chest is clear to auscultation, no wheezing or crackles. ABDOMEN: Soft, obese, nontender, nondistended, normoactive bowel sounds. No palpable organomegaly. MUSCULOSKELETAL: No joint swelling or deformity. EXTREMITIES: No cyanosis, clubbing, or very mild pitting pedal edema, improving. NEUROLOGICAL: Gross neurological examination did not reveal any focal deficits. Diffusely weak SKIN: No rashes. Assessment and plan -Generalized weakness and fall due to recent hospitalization, physical and occupational therapy were consulted and recommending discharge to subacute rehab -Dizziness likely due to narcotic medication, will be decreased to norco 5mg with tylenol added for mild pain. Avoid narcotics if possible. Orthostatic blood pressures were negative. -Mild congestive heart failure, systolic and diastolic dysfunction received IV lasix which has now been discontinued as patient was having episodes of dizziness and lightheadedness and low blood pressure readings. -Mild hypervolemic hyponatremia: Lasix as mentioned above. -Gastroesophageal reflux disease, recent GI bleed -Hypertension -Hypothyroidism -Sleep apnea uses CPAP machine at home -Obesity with a BMI of 38.4 -Asymptomatic bacteriuria will not require any antibiotics at this time DVT prophylaxis: Subcutaneous heparin GI prophylaxis: Protonix Plan: Cardiology following and attempting to give IV lasix and monitor the patient. Patient was feeling lightheaded and dizzy and morning dose of Lasix was held and midodrine started as blood pressure readings were low. Orthostatics were negative. Cardiology recommending rechecking blood pressure after midodrine is given to evaluate if she can tolerate the IV Lasix. Repeat labs in the AM. Cardiology following closely. Patient requires 3 night inpatient hospital stay in order to discharge to subacute rehab. She was just at [facility] for 1 week, Social work following and checking for inpatient status there. Encouraged to increase activity as tolerated and would recommend getting up into the chair with all meals and continued PT/OT therapy daily. Elevate lower extremities while at rest Possible discharge planning on 01/15/2024 The impression and plan of care has been dictated by Sandra Amador, Nurse Practitioner as directed. Dr. Netta MD I have performed a history and physical examination and medical decision making of this patient, discussed the same with the dictator, and agree with the dictators assessment and plan as written, documented as a scribe. Based on total visit time, I have performed more than 50% of this visit. Objective - Vital Signs Vital signs: Vital Signs Temp 97.9 F 01/13/24 08:12 Pulse 74 01/13/24 08:12 Resp 16 01/13/24 08:12 BP 97/57 01/13/24 08:12 Pulse Ox 94 L 01/13/24 08:12 FiO2 Intake & Output 01/12/24 01/13/24 01/13/24 18:59 06:59 18:59 Intake Total 600 10 Output Total 300 Balance 600 -290 Weight 95.1 kg Intake: IV 20 10 Invasive Line 1 20 10 Oral 580 Output: Urine 300 Other: Voiding Method Bedside Commode Bedside Commode Bedside Commode Diaper Diaper Diaper External Catheter External Catheter External Catheter # Voids 1 - Labs CBC & Chem 7: 01/10/24 22:06 01/13/24 06:25 Labs: Abnormal Lab Results - Last 24 Hours (Table) 01/12/24 01/13/24 Range/Units 09:10 06:25 Sodium 132 L 132 L (137-145) mmol/L Chloride 94 L 97 L (98-107) mmol/L Carbon Dioxide 33 H 32 H (22-30) mmol/L BUN 18 H (7-17) mg/dL Glucose 113 H (74-99) mg/dL
[2024-01-14 07:39] LABS: Basophils % (A) 1 %; Eosinophils # (A) 0.2 k/uL (0-0.7); Eosinophils % (A) 4 %; HCT 36.3 % (34.0-46.0); HGB 11.2 gm/dL (11.4-16.0); Hypochromasia Slight; Lymphocytes # (A) 0.7 k/uL (1.0-4.8); Lymphocytes % (A) 13 %; MCH 29.1 pg (25.0-35.0); MCHC 30.7 g/dL (31.0-37.0); MCV 94.7 fL (80.0-100.0); Mean Platelet Volume 7.6; Monocytes # (A) 0.3 k/uL (0-1.0); Monocytes % (A) 6 %; Neutrophils # (A) 3.8 k/uL (1.3-7.7); Neutrophils % (A) 75 %; Platelet Count 226 k/uL (150-450); RBC 3.83 m/uL (3.80-5.40); RDW 15.5 % (11.5-15.5); WBC 5.1 k/uL (3.8-10.6)
[2024-01-14 08:02] LABS: African American GFR (CKD) 84 (>60 ml/min/1.73 sqM); Anion Gap 6 mmol/L; Blood Urea Nitrogen 22 mg/dL (7-17); Calcium 8.8 mg/dL (8.4-10.2); Carbon Dioxide 33 mmol/L (22-30); Chloride 95 mmol/L (98-107); Glucose 93 mg/dL (74-99); Non-African American GFR(CKD) 73 (>60 ml/min/1.73 sqM); Sodium 134 mmol/L (137-145)
[2024-01-14] MEDS: HYDROcodone/APAP 5-325MG 1 EACH TAB PO PRN (08:09)
[2024-01-14] MEDS: MIDODRINE 5 MG TAB PO SCH (11:11)
--- NOTE | 2024-01-14 11:49 | P.PN ---
Subjective Progress Note Date: 01/14/24 History of present illness: This is an 83-year-old female with past medical history of recent GI bleed at [facility] status post EGD and clipping and status post embolization. Patient following that was having weakness tiredness and fell down. She has a past medical history significant for CHF and mild cardiomyopathy. She follows with Dr. BRIDGER Aquino in the office. Echocardiogram revealed EF of 40 to 45%. Elevated pulmonary artery pressures. Left atrial enlargement. Blood pressures have been on the low side this morning 97/57, heart rate in the 60s and 70s, pulse ox 94% on room air. Last evening, patient had an episode after eating dinner where her blood pressure dropped to 74/44 not long after IV Lasix 20 mg was given. Morning dose of IV Lasix was held. Patient also received a 500 cc fluid bolus last evening over a 5-hour period. 01/13 Patient has no new concerns today. Blood pressure slightly better this morning at 103/69. Yesterday, morning dose of Lasix held due to hypotension despite patient being started on midodrine. Patient is currently on midodrine 5 mg 3 times daily. Heart rate is in the 60s and 70s, pulse ox 95% on room air. Repeat blood work reveals hemoglobin 11.2. Sodium 134, potassium 4, BUN 22 creatinine 0.77. Physical examination: Gen: This is an 83-year-old female in no acute distress VS: reviewed HEENT: Head is atraumatic, normocephalic. Pupils equal, round. Sclerae is anicteric. NECK: Supple. No JVD. LUNGS: Clear to auscultation. No wheezes or rhonchi. No intercostal retractions. HEART: Regular rate and rhythm. Systolic murmur at the left lower sternal border. ABDOMEN: Soft No tenderness. EXTREMITIES: No pedal edema. No calf tenderness. NEUROLOGICAL: Patient is awake, alert and oriented x3. Assessment: Acute on chronic systolic heart failure Hypotension Recent GI bleed Plan: Increase midodrine to 10 mg 3 times daily Continue patient on IV Lasix 20 mg daily Monitor LISETTE, daily weights, electrolytes and renal function Further recommendations to follow based upon clinical course Nurse practitioner note has been reviewed, I agree with documented findings and plan of care. Patient was seen and examined. Objective - Vital Signs Vital signs: Vital Signs Temp 97.8 F 04/28/24 08:00 Pulse 73 01/14/24 08:00 Resp 16 01/14/24 08:00 BP 103/69 01/14/24 08:00 Pulse Ox 93 L 01/14/24 08:00 FiO2 Intake & Output 01/13/24 01/14/24 01/14/24 18:59 06:59 18:59 Intake Total 598 20 118 Output Total 150 725 Balance 448 -705 118 Weight 95.3 kg Intake: IV 20 Invasive Line 1 10 Invasive Line 2 10 Oral 598 118 Output: Urine 150 725 Other: Voiding Method Bedside Commode Bedside Commode Bedside Commode Diaper Diaper Diaper External Catheter External Catheter External Catheter - Labs CBC & Chem 7: 01/14/24 06:41 01/14/24 06:41 Labs: Abnormal Lab Results - Last 24 Hours (Table) 01/13/24 01/14/24 01/14/24 Range/Units 06:25 06:41 06:41 Hgb 11.2 L (11.4-16.0) gm/dL MCHC 30.7 L (31.0-37.0) g/dL Lymphocytes # 0.7 L (1.0-4.8) k/uL Sodium 132 L 134 L (137-145) mmol/L Chloride 97 L 95 L (98-107) mmol/L Carbon Dioxide 32 H 33 H (22-30) mmol/L BUN 18 H 22 H (7-17) mg/dL
--- NOTE | 2024-01-14 13:54 | P.PN ---
Subjective Progress Note Date: 01/14/24 83-year-old female came in after a fall. Patient was discharged from [facility] yesterday patient was transferred to [facility] about 5 to 6 days ago after she presented here with GI bleed and upper GI endoscopy showed duodenal ulcers which were clipped by remote pilot operator although patient continued bleeding because of which patient was sent to [facility] for embolization. I do not have any medical records available from [facility] patient is unable to provide me what exact procedure was done at [facility]. Patient denies any bleeding at this time. Patient denies any shortness of breath orthopnea or paroxysmal nocturnal dyspnea patient also has mild peripheral edema patient denies any history of congestive heart failure history in the past patient's BNP is 2500 chest x-ray showing mild pleural effusion and pulmonary edema and her serum sodium which is 126 improved after dose of Lasix to 132. 01/12/2024 Patient is evaluated today on the medical floor. Patient had echocardiogram done showing EF 40-45% with elevated pulmonary artery pressures, left atrial enlargement, mild to moderate TR and mild to moderate MR. Continued on IV lasix 40 mg [id number] last dose will be later this evening and lasix will be discontinued. Patient was taken off her lasix on an outpatient basis due to low sodium levels. Patient is denying any shortness of breath. Was taking percocet for pain and states this caused her to feel dizzy. 01/13/2024 Patient is seen this morning currently sitting up in the chair with no acute overnight issues noted. Patient with significant weakness as well as CHF exacerbation being followed by cardiology. Patient's blood pressures were on the lower side and attempting to continue with IV Lasix for diuresis although patient reporting increasing lightheadedness and dizziness. Midodrine being started and cardiology recommending follow-up if blood pressure is improved and tolerating then give the IV Lasix. Patient continues with lower extremity mild edema noted, nonpitting. Orthostatics evaluated and were negative. Will DC propranolol as well. Patient to be reevaluated by PT/OT therapy as patient is significantly weak and would benefit from ECF. Case management/social work to follow-up on Monday regarding discharge planning. Patient is afebrile with no reports of chest pain or shortness of breath. Patient reports to tolerating diet with no reported nausea or vomiting. 01/14/24 : Patient seen and evaluated bedside, blood work reviewed hemoglobin 11.2, serum chemistry showed sodium 134 potassium 4 BUN 22 creatinine 0.77, blood pressure shows MAP of 80, continue patient on Lasix along with blood pressure support with midodrine. Patient denies of dizziness denies of any acute symptoms family at bedside PHYSICAL EXAMINATION: GENERAL: The patient is alert and oriented x3, Obese, elderly appearing HEENT: Pupils are round and equally reacting to light. EOMINormocephalic, atraumatic. No pharyngeal erythema. No thyromegaly. CARDIOVASCULAR: S1 and S2 PULMONARY: Decreased breath sounds bilaterally ABDOMEN: Soft, obese, nontender, nondistended, normoactive bowel sounds. No palpable organomegaly. MUSCULOSKELETAL: No joint swelling or deformity. EXTREMITIES: No cyanosis, clubbing, or very mild pitting pedal edema, improving. NEUROLOGICAL: Gross neurological examination did not reveal any focal deficits. Diffusely weak SKIN: No rashes. Assessment and plan -Generalized weakness and fall due to recent hospitalization, physical and occupational therapy were consulted and recommending discharge to subacute rehab -Dizziness likely due to narcotic medication, will be decreased to norco 5mg with tylenol added for mild pain. Avoid narcotics if possible. Orthostatic blood pressures were negative. -Mild congestive heart failure, systolic and diastolic dysfunction received IV lasix which has now been discontinued as patient was having episodes of dizziness and lightheadedness and low blood pressure readings. -Mild hypervolemic hyponatremia: Lasix as mentioned above. -Gastroesophageal reflux disease, recent GI bleed -Hypertension -Hypothyroidism -Sleep apnea uses CPAP machine at home -Obesity with a BMI of 38.4 -Asymptomatic bacteriuria will not require any antibiotics at this time Plan: * In regards to generalized weakness patient seen by physical therapy and recommendation is to discharge to subacute rehab * In regards to congestive heart failure, continue patient on diuretics with Lasix, monitor for hypotension continue midodrine for blood pressure support * In regards to history of gastrointestinal bleed continue patient on Protonix follow-up on CBC. * Possible discharge planning on 01/15/2024 Objective - Vital Signs Vital signs: Vital Signs Temp 97.8 F 01/14/24 08:00 Pulse 73 01/14/24 08:00 Resp 16 01/14/24 08:00 BP 103/69 01/14/24 08:00 Pulse Ox 93 L 01/14/24 08:00 FiO2 Intake & Output 01/13/24 01/14/24 01/14/24 18:59 06:59 18:59 Intake Total 598 20 118 Output Total 150 725 Balance 448 -705 118 Weight 95.3 kg Intake: IV 20 Invasive Line 1 10 Invasive Line 2 10 Oral 598 118 Output: Urine 150 725 Other: Voiding Method Bedside Commode Bedside Commode Bedside Commode Diaper Diaper Diaper External Catheter External Catheter External Catheter # Voids 1 # Bowel Movements 1 - Labs CBC & Chem 7: 01/14/24 06:41 01/14/24 06:41 Labs: Abnormal Lab Results - Last 24 Hours (Table) 01/14/24 01/14/24 Range/Units 06:41 06:41 Hgb 11.2 L (11.4-16.0) gm/dL MCHC 30.7 L (31.0-37.0) g/dL Lymphocytes # 0.7 L (1.0-4.8) k/uL Sodium 134 L (137-145) mmol/L Chloride 95 L (98-107) mmol/L Carbon Dioxide 33 H (22-30) mmol/L BUN 22 H (7-17) mg/dL
[2024-01-14] MEDS: DICYCLOMINE 20 MG TAB PO SCH (21:06)
[2024-01-15 10:02] LABS: HCT 37.2 % (34.0-46.0); HGB 11.6 gm/dL (11.4-16.0); Hypochromasia Slight; MCH 29.8 pg (25.0-35.0); MCHC 31.3 g/dL (31.0-37.0); MCV 95.2 fL (80.0-100.0); Mean Platelet Volume 7.9; Platelet Count 218 k/uL (150-450); RBC 3.91 m/uL (3.80-5.40); RDW 15.3 % (11.5-15.5); WBC 7.4 k/uL (3.8-10.6)
[2024-01-15 10:16] LABS: African American GFR (CKD) >90 (>60 ml/min/1.73 sqM); Anion Gap 5 mmol/L; Blood Urea Nitrogen 19 mg/dL (7-17); Calcium 9.2 mg/dL (8.4-10.2); Carbon Dioxide 32 mmol/L (22-30); Chloride 96 mmol/L (98-107); Glucose 120 mg/dL (74-99); Non-African American GFR(CKD) 86 (>60 ml/min/1.73 sqM); Sodium 133 mmol/L (137-145)
[2024-01-15] MEDS ORDERED: METOPROLOL TARTRATE 25 MG TAB PO SCH (11:30)
[2024-01-15] MEDS: PROPRANOLOL LA 60 MG CAP.SA.24H PO SCH (11:57)
--- NOTE | 2024-01-15 12:26 | P.PN ---
Subjective Progress Note Date: 01/15/24 83-year-old female came in after a fall. Patient was discharged from [facility] yesterday patient was transferred to [facility] about 5 to 6 days ago after she presented here with GI bleed and upper GI endoscopy showed duodenal ulcers which were clipped by quality assurance monitor chassis although patient continued bleeding because of which patient was sent to [facility] for embolization. I do not have any medical records available from [facility] patient is unable to provide me what exact procedure was done at [facility]. Patient denies any bleeding at this time. Patient denies any shortness of breath orthopnea or paroxysmal nocturnal dyspnea patient also has mild peripheral edema patient denies any history of congestive heart failure history in the past patient's BNP is 2500 chest x-ray showing mild pleural effusion and pulmonary edema and her serum sodium which is 126 improved after dose of Lasix to 132. 01/12/2024 Patient is evaluated today on the medical floor. Patient had echocardiogram done showing EF 40-45% with elevated pulmonary artery pressures, left atrial enlargement, mild to moderate TR and mild to moderate MR. Continued on IV lasix 40 mg [id number] last dose will be later this evening and lasix will be discontinued. Patient was taken off her lasix on an outpatient basis due to low sodium levels. Patient is denying any shortness of breath. Was taking percocet for pain and states this caused her to feel dizzy. 01/13/2024 Patient is seen this morning currently sitting up in the chair with no acute overnight issues noted. Patient with significant weakness as well as CHF exacerbation being followed by cardiology. Patient's blood pressures were on the lower side and attempting to continue with IV Lasix for diuresis although patient reporting increasing lightheadedness and dizziness. Midodrine being started and cardiology recommending follow-up if blood pressure is improved and tolerating then give the IV Lasix. Patient continues with lower extremity mild edema noted, nonpitting. Orthostatics evaluated and were negative. Will DC propranolol as well. Patient to be reevaluated by PT/OT therapy as patient is significantly weak and would benefit from ECF. Case management/social work to follow-up on Monday regarding discharge planning. Patient is afebrile with no reports of chest pain or shortness of breath. Patient reports to tolerating diet with no reported nausea or vomiting. 01/14/24 : Patient seen and evaluated bedside, blood work reviewed hemoglobin 11.2, serum chemistry showed sodium 134 potassium 4 BUN 22 creatinine 0.77, blood pressure shows MAP of 80, continue patient on Lasix along with blood pressure support with midodrine. Patient denies of dizziness denies of any acute symptoms family at bedside 01/15/24: Patient seen and evaluated at bedside, overnight patient went into [facility] with R[facility], cardiology following, patient started back on propranolol, continue to hold anticoagulation due to high risk of bleeding, will continue to follow-up on CBC, hemoglobin remained stable at 11.6, electrolytes reviewed potassium and magnesium remain at goal PHYSICAL EXAMINATION: GENERAL: The patient is alert and oriented x3, Obese, elderly appearing HEENT: Pupils are round and equally reacting to light. EOMINormocephalic, atraumatic. No pharyngeal erythema. No thyromegaly. CARDIOVASCULAR: S1 and S2, tachycardia irregular rhythm PULMONARY: Decreased breath sounds bilaterally ABDOMEN: Soft, obese, nontender, nondistended, normoactive bowel sounds. No palpable organomegaly. MUSCULOSKELETAL: No joint swelling or deformity. EXTREMITIES: No cyanosis, clubbing, or very mild pitting pedal edema, improving. NEUROLOGICAL: Gross neurological examination did not reveal any focal deficits. Diffusely weak SKIN: No rashes. Assessment and plan * Generalized weakness and fall due to recent hospitalization, physical and occupational therapy were consulted and recommending discharge to subacute rehab * New onset atrial fibrillation with rapid ventricle response * congestive heart failure, systolic and diastolic dysfunction * Gastroesophageal reflux disease, recent GI bleed * Hypertension hypothyroid * Obesity with BMI of 38 * Obstructive sleep apnea on CPAP * Asymptomatic bacteriuria Plan: * In regards to new onset atrial fibrillation, continue telemonitoring, patient started back on propranolol anticoagulation remains on hold due to recent gastrointestinal bleed * In regards to generalized weakness patient seen by physical therapy and recommendation is to discharge to subacute rehab * In regards to congestive heart failure, continue patient on diuretics with Lasix, monitor for hypotension continue midodrine for blood pressure support * In regards to history of gastrointestinal bleed continue patient on Protonix follow-up on CBC. Objective - Vital Signs Vital signs: Vital Signs Temp 98.3 F 01/15/24 08:16 Pulse 98 01/15/24 11:07 Resp 20 01/15/24 11:07 BP 123/71 01/15/24 11:07 Pulse Ox 98 01/15/24 11:07 FiO2 Intake & Output 01/14/24 01/15/24 01/15/24 18:59 06:59 18:59 Intake Total 776 10 118 Output Total 350 1000 800 Balance 662 -904 -289 Weight 95.9 kg Intake: IV 10 Invasive Line 2 10 Oral 776 118 Output: Urine 350 1000 800 Other: Voiding Method Bedside Commode Bedside Commode Bedside Commode Diaper Diaper External Catheter External Catheter External Catheter # Voids 1 # Bowel Movements 1 - Labs CBC & Chem 7: 01/15/24 09:33 01/15/24 09:33 Labs: Abnormal Lab Results - Last 24 Hours (Table) 01/15/24 Range/Units 09:33 Sodium 133 L (137-145) mmol/L Chloride 96 L (98-107) mmol/L Carbon Dioxide 32 H (22-30) mmol/L BUN 19 H (7-17) mg/dL Glucose 120 H (74-99) mg/dL
--- NOTE | 2024-01-15 14:15 | P.PN ---
Subjective HISTORY OF PRESENT ILLNESS: This is an 83-year-old female with past medical history of recent GI bleed at [facility] status post EGD and clipping and status post embolization. Patient following that was having weakness tiredness and fell down. She has a past medical history significant for CHF and mild cardiomyopathy. She follows with Dr. BRIDGER Aquino in the office. Echocardiogram revealed EF of 40 to 45%. Elevated pulmonary artery pressures. Left atrial enlargement. Blood pressures have been on the low side this morning 97/57, heart rate in the 60s and 70s, pulse ox 94% on room air. Last evening, patient had an episode after eating dinner where her blood pressure dropped to 74/44 not long after IV Lasix 20 mg was given. Morning dose of IV Lasix was held. Patient also received a 500 cc fluid bolus last evening over a 5-hour period. 01/13 Patient has no new concerns today. Blood pressure slightly better this morning at 103/69. Yesterday, morning dose of Lasix held due to hypotension despite patient being started on midodrine. Patient is currently on midodrine 5 mg 3 times daily. Heart rate is in the 60s and 70s, pulse ox 95% on room air. Repeat blood work reveals hemoglobin 11.2. Sodium 134, potassium 4, BUN 22 creatinine 0.77. 01/15/2024 Patient examined this morning at the bedside. Patient currently denies chest pain or pressure. She denies shortness of breath. [facility] this [facility]. She denies a history of atrial fibrillation. The patient was previously on propranolol which was discontinued over the weekend as patient was hypotensive. There is some documentation that the patient underwent EGD at [facility] due to GI bleeding. Over, records from [facility] were obtained and reviewed. The patient underwent endoscopy on 01/04/2024 revealing normal-appearing duodenum with no evidence of duodenitis or duodenal ulcer, mild antral gastritis, and no evidence of active GI bleed. The patient then developed choledocholithiasis and ERCP was recommended. However the GI was not available at this facility and the patient was transferred to [facility]. She underwent successful ERCP. Per [facility] records, the patient did not undergo repeat EGD. PHYSICAL EXAM: VITAL SIGNS: Reviewed. GENERAL: Well-developed in no acute distress. NECK: Supple. No JVD or thyromegaly LUNGS: Respirations even and unlabored. Lungs essentially clear to auscultation bilaterally. HEART: Tachycardic. Irregular rate and rhythm. S1 and S2 heard. EXTREMITIES: Normal range of motion. No clubbing or cyanosis. Peripheral pulses intact. No lower extremity edema ASSESSMENT: Acute on chronic heart failure with reduced EF, 40 to 45% Hypotension, resolved New onset atrial fibrillation with RVR Recent hospitalization for melena and anemia, status post endoscopy on 01/04/2024 revealing normal-appearing duodenum with no evidence of duodenitis or duodenal ulcer, mild antral gastritis, and no evidence of active GI bleed Recent history of choledocholithiasis, status post ERCP at [facility] History of duodenal ulcer History of iron deficiency anemia PLAN: TSH checked and within normal limits resume propranolol Continue telemetry monitoring Discontinue IV Lasix. Begin oral Lasix 20 mg daily Will begin patient on Eliquis 5 mg twice a day. Monitor for signs of bleeding. Continue to monitor hemoglobin. Further recommendations pending patient course Nurse practitioner note has been reviewed by physician. Signing provider agrees with the documented findings, assessment, and plan of care documented by MASH TUB COOKER as a scribe. Objective - Vital Signs Vital signs: Vital Signs Temp 98.3 F 01/15/24 08:16 Pulse 98 01/15/24 13:57 Resp 20 01/15/24 11:07 BP 123/71 01/15/24 11:07 Pulse Ox 98 01/15/24 11:07 FiO2 Intake & Output 01/14/24 01/15/24 01/15/24 18:59 06:59 18:59 Intake Total 776 10 118 Output Total 350 1000 800 Balance 426 -342 -352 Weight 95.9 kg Intake: IV 10 Invasive Line 2 10 Oral 776 118 Output: Urine 350 1000 800 Other: Voiding Method Bedside Commode Bedside Commode Bedside Commode Diaper Diaper External Catheter External Catheter External Catheter # Voids 1 # Bowel Movements 1 - Labs CBC & Chem 7: 01/15/24 09:33 01/15/24 09:33 Labs: Abnormal Lab Results - Last 24 Hours (Table) 01/15/24 Range/Units 09:33 Sodium 133 L (137-145) mmol/L Chloride 96 L (98-107) mmol/L Carbon Dioxide 32 H (22-30) mmol/L BUN 19 H (7-17) mg/dL Glucose 120 H (74-99) mg/dL
[2024-01-15] MEDS: APIXABAN 5 MG TAB PO SCH (21:30)
[2024-01-16 06:30] VITALS: RESP 16
[2024-01-16] MEDS: FUROSEMIDE 20 MG TAB PO SCH (08:18)
[2024-01-16 11:34] LABS: HGB 12.6 gm/dL (11.4-16.0); Hypochromasia Marked; MCH 29.3 pg (25.0-35.0); MCHC 29.4 g/dL (31.0-37.0); MCV 99.6 fL (80.0-100.0); Macrocytosis Slight; Mean Platelet Volume 8.3; Platelet Count 213 k/uL (150-450); RBC 4.31 m/uL (3.80-5.40); RDW 15.5 % (11.5-15.5); WBC 7.2 k/uL (3.8-10.6)
[2024-01-16 11:42] LABS: African American GFR (CKD) >90 (>60 ml/min/1.73 sqM); Anion Gap 8 mmol/L; Blood Urea Nitrogen 18 mg/dL (7-17); Calcium 9.3 mg/dL (8.4-10.2); Carbon Dioxide 30 mmol/L (22-30); Chloride 97 mmol/L (98-107); Glucose 84 mg/dL (74-99); Non-African American GFR(CKD) >90 (>60 ml/min/1.73 sqM); Sodium 135 mmol/L (137-145)
[2024-01-16 11:50] LABS: Potassium 4.9 mmol/L (3.5-5.1)
--- NOTE | 2024-01-16 12:42 | P.PN ---
Subjective Progress Note Date: 01/16/24 83-year-old female came in after a fall. Patient was discharged from [facility] yesterday patient was transferred to [facility] about 5 to 6 days ago after she presented here with GI bleed and upper GI endoscopy showed duodenal ulcers which were clipped by ceramic mold designer although patient continued bleeding because of which patient was sent to [facility] for embolization. I do not have any medical records available from [facility] patient is unable to provide me what exact procedure was done at [facility]. Patient denies any bleeding at this time. Patient denies any shortness of breath orthopnea or paroxysmal nocturnal dyspnea patient also has mild peripheral edema patient denies any history of congestive heart failure history in the past patient's BNP is 2500 chest x-ray showing mild pleural effusion and pulmonary edema and her serum sodium which is 126 improved after dose of Lasix to 132. 01/12/2024 Patient is evaluated today on the medical floor. Patient had echocardiogram done showing EF 40-45% with elevated pulmonary artery pressures, left atrial enlargement, mild to moderate TR and mild to moderate MR. Continued on IV lasix 40 mg [id number] last dose will be later this evening and lasix will be discontinued. Patient was taken off her lasix on an outpatient basis due to low sodium levels. Patient is denying any shortness of breath. Was taking percocet for pain and states this caused her to feel dizzy. 01/13/2024 Patient is seen this morning currently sitting up in the chair with no acute overnight issues noted. Patient with significant weakness as well as CHF exacerbation being followed by cardiology. Patient's blood pressures were on the lower side and attempting to continue with IV Lasix for diuresis although patient reporting increasing lightheadedness and dizziness. Midodrine being started and cardiology recommending follow-up if blood pressure is improved and tolerating then give the IV Lasix. Patient continues with lower extremity mild edema noted, nonpitting. Orthostatics evaluated and were negative. Will DC propranolol as well. Patient to be reevaluated by PT/OT therapy as patient is significantly weak and would benefit from ECF. Case management/social work to follow-up on Monday regarding discharge planning. Patient is afebrile with no reports of chest pain or shortness of breath. Patient reports to tolerating diet with no reported nausea or vomiting. 01/14/24 : Patient seen and evaluated bedside, blood work reviewed hemoglobin 11.2, serum chemistry showed sodium 134 potassium 4 BUN 22 creatinine 0.77, blood pressure shows MAP of 80, continue patient on Lasix along with blood pressure support with midodrine. Patient denies of dizziness denies of any acute symptoms family at bedside 01/15/24: Patient seen and evaluated at bedside, overnight patient went into [facility] with [facility], cardiology following, patient started back on propranolol, continue to hold anticoagulation due to high risk of bleeding, will continue to follow-up on CBC, hemoglobin remained stable at 11.6, electrolytes reviewed potassium and magnesium remain at goal 12/19 : Patient seen and evaluated bedside, patient seen by cardiology. Medical records were reviewed from [facility] by cardiology and patient started on anticoagulation. Continue to monitor H&H post resumption of Eliquis which is a new medication for her. PHYSICAL EXAMINATION: GENERAL: The patient is alert and oriented x3, Obese, elderly appearing HEENT: Pupils are round and equally reacting to light. EOMINormocephalic, atraumatic. No pharyngeal erythema. No thyromegaly. CARDIOVASCULAR: S1 and S2, tachycardia irregular rhythm PULMONARY: Decreased breath sounds bilaterally ABDOMEN: Soft, obese, nontender, nondistended, normoactive bowel sounds. No palpable organomegaly. MUSCULOSKELETAL: No joint swelling or deformity. EXTREMITIES: No cyanosis, clubbing, or very mild pitting pedal edema, improving. NEUROLOGICAL: Gross neurological examination did not reveal any focal deficits. Diffusely weak SKIN: No rashes. Assessment and plan * Generalized weakness and fall due to recent hospitalization, physical and occupational therapy were consulted and recommending discharge to subacute rehab * New onset atrial fibrillation with rapid ventricle response * congestive heart failure, systolic and diastolic dysfunction * Gastroesophageal reflux disease, recent GI bleed * Choledocholithiasis with ERCP at [facility] December 2023 * Hypertension hypothyroid * Obesity with BMI of 38 * Obstructive sleep apnea on CPAP * Asymptomatic bacteriuria Plan: * In regards to new onset atrial fibrillation, continue telemonitoring, patient started back on propranolol anticoagulation initiated with Eliquis monitor CBC for 24 hours, then discharged to subacute rehab * In regards to generalized weakness patient seen by physical therapy and recommendation is to discharge to subacute rehab * In regards to congestive heart failure, continue patient on diuretics with Lasix, monitor for hypotension continue midodrine for blood pressure support, resumed on propranolol for A-fib * In regards to history of gastrointestinal bleed continue patient on Protonix follow-up on CBC. * Plan to discharge to subacute rehab once hemoglobin remained stable while on Eliquis Objective - Vital Signs Vital signs: Vital Signs Temp 97.7 F 01/16/24 04:00 Pulse 74 01/16/24 08:15 Resp 16 01/16/24 08:15 BP 112/64 01/16/24 08:15 Pulse Ox 99 01/16/24 08:15 FiO2 Intake & Output 01/15/24 01/16/24 01/16/24 18:59 06:59 18:59 Intake Total 598 Output Total 1450 325 Balance -852 -325 Weight 95.3 kg Intake: Oral 598 Output: Urine 1450 325 Other: Voiding Method Bedside Commode Bedside Commode External Catheter External Catheter # Voids 1 - Labs CBC & Chem 7: 01/16/24 09:38 01/16/24 09:38 Labs: Abnormal Lab Results - Last 24 Hours (Table) 01/15/24 Range/Units 09:33 Sodium 133 L (137-145) mmol/L Chloride 96 L (98-107) mmol/L Carbon Dioxide 32 H (22-30) mmol/L BUN 19 H (7-17) mg/dL Glucose 120 H (74-99) mg/dL
--- NOTE | 2024-01-16 13:52 | P.PN ---
Subjective HISTORY OF PRESENT ILLNESS: This is an 83-year-old female with past medical history of recent GI bleed at [facility] status post EGD and clipping and status post embolization. Patient following that was having weakness tiredness and fell down. She has a past medical history significant for CHF and mild cardiomyopathy. She follows with Dr. BRIDGER Aquino in the office. Echocardiogram revealed EF of 40 to 45%. Elevated pulmonary artery pressures. Left atrial enlargement. Blood pressures have been on the low side this morning 97/57, heart rate in the 60s and 70s, pulse ox 94% on room air. Last evening, patient had an episode after eating dinner where her blood pressure dropped to 74/44 not long after IV Lasix 20 mg was given. Morning dose of IV Lasix was held. Patient also received a 500 cc fluid bolus last evening over a 5-hour period. 01/13 Patient has no new concerns today. Blood pressure slightly better this morning at 103/69. Yesterday, morning dose of Lasix held due to hypotension despite patient being started on midodrine. Patient is currently on midodrine 5 mg 3 times daily. Heart rate is in the 60s and 70s, pulse ox 95% on room air. Repeat blood work reveals hemoglobin 11.2. Sodium 134, potassium 4, BUN 22 creatinine 0.77. 01/15/2024 Patient examined this morning at the bedside. Patient currently denies chest pain or pressure. She denies shortness of breath. Patient went into [facility] with RVR this morning. She denies a history of atrial fibrillation. The patient was previously on propranolol which was discontinued over the weekend as patient was hypotensive. There is some documentation that the patient underwent EGD at [facility] due to GI bleeding. Over, records from [facility] were obtained and reviewed. The patient underwent endoscopy on 01/04/2024 revealing normal-appearing duodenum with no evidence of duodenitis or duodenal ulcer, mild antral gastritis, and no evidence of active GI bleed. The patient then developed choledocholithiasis and ERCP was recommended. However the GI was not available at this facility and the patient was transferred to [facility]. She underwent successful ERCP. Per [facility] records, the patient did not undergo repeat EGD. 01/16/2024 Patient examined this morning. She is sitting up in the chair. Patient denies chest pain or pressure. She denies shortness of breath. Telemetry reveals sinus mechanism. Hemoglobin remained stable. She is anticoagulated with Eliquis. PHYSICAL EXAM: VITAL SIGNS: Reviewed. GENERAL: Well-developed in no acute distress. NECK: Supple. No JVD or thyromegaly LUNGS: Respirations even and unlabored. Lungs essentially clear to auscultation bilaterally. HEART: Tachycardic. Irregular rate and rhythm. S1 and S2 heard. EXTREMITIES: Normal range of motion. No clubbing or cyanosis. Peripheral pulses intact. No lower extremity edema ASSESSMENT: Acute on chronic heart failure with reduced EF, 40 to 45% Hypotension, resolved New onset atrial fibrillation with RVR Recent hospitalization for melena and anemia, status post endoscopy on 01/04/2024 revealing normal-appearing duodenum with no evidence of duodenitis or duodenal ulcer, mild antral gastritis, and no evidence of active GI bleed Recent history of choledocholithiasis, status post ERCP at [facility] History of duodenal ulcer History of iron deficiency anemia PLAN: Continue current dose of propranolol Continue anticoagulation with Eliquis Patient is stable for discharge home today from a cardiac standpoint Defer discharge to primary medicine She is to follow-up postdischarge with Dr. Aquino Nurse practitioner note has been reviewed by physician. Signing provider agrees with the documented findings, assessment, and plan of care documented by JEWELRY MECHANIC as a scribe. Objective - Vital Signs Vital signs: Vital Signs Temp 97.7 F 01/16/24 04:00 Pulse 68 01/16/24 12:30 Resp 16 01/16/24 12:30 BP 115/72 01/16/24 12:30 Pulse Ox 98 01/16/24 12:30 FiO2 Intake & Output 01/15/24 01/16/24 01/16/24 18:59 06:59 18:59 Intake Total 598 298 Output Total 1450 325 Balance -852 -325 298 Weight 95.3 kg Intake: Oral 598 298 Output: Urine 1450 325 Other: Voiding Method Bedside Commode Bedside Commode Bedside Commode External Catheter External Catheter External Catheter # Voids 1 1 # Bowel Movements 1 - Labs CBC & Chem 7: 01/16/24 09:38 01/16/24 09:38 Labs: Abnormal Lab Results - Last 24 Hours (Table) 01/16/24 01/16/24 Range/Units 09:38 09:38 MCHC 29.4 L (31.0-37.0) g/dL Sodium 135 L (137-145) mmol/L Chloride 97 L (98-107) mmol/L BUN 18 H (7-17) mg/dL Creatinine 0.50 L (0.52-1.04) mg/dL
[2024-01-17 02:19] VITALS: TEMP 97.8
[2024-01-17 10:52] LABS: HCT 36.1 % (34.0-46.0); HGB 10.8 gm/dL (11.4-16.0); Hypochromasia Slight; MCH 28.9 pg (25.0-35.0); MCV 96.2 fL (80.0-100.0); Mean Platelet Volume 8.2; Platelet Count 199 k/uL (150-450); RBC 3.75 m/uL (3.80-5.40); RDW 15.4 % (11.5-15.5); WBC 5.9 k/uL (3.8-10.6)
[2024-01-17 11:09] LABS: African American GFR (CKD) >90 (>60 ml/min/1.73 sqM); Anion Gap 9 mmol/L; Blood Urea Nitrogen 18 mg/dL (7-17); Calcium 9.1 mg/dL (8.4-10.2); Carbon Dioxide 27 mmol/L (22-30); Chloride 97 mmol/L (98-107); Glucose 130 mg/dL (74-99); Non-African American GFR(CKD) 83 (>60 ml/min/1.73 sqM); Potassium 3.6 mmol/L (3.5-5.1); Sodium 133 mmol/L (137-145)
--- NOTE | 2024-01-17 11:09 | P.DS ---
Providers Date of admission: 01/12/24 07:24 Attending physician: Vanessa Plummer Consults: 01/11/24 22:25 Consult Physician Routine Consulting Provider: Vernon Evans Consult Reason/Comments: CHF Do you want consulting provider notified?: Yes Primary care physician: Ravinder Sinclair MD Hospital Course: Diagnoses: * Generalized weakness and fall due to recent hospitalization, physical and occupational therapy were consulted and recommending discharge to subacute rehab * New onset atrial fibrillation with rapid ventricle response * congestive heart failure, systolic and diastolic dysfunction * Gastroesophageal reflux disease, recent GI bleed * Choledocholithiasis with ERCP at [facility] December 2023 * Hypertension hypothyroid * Obesity with BMI of 38 * Obstructive sleep apnea on CPAP * Asymptomatic bacteriuria Hospital course: 83-year-old female came in after a fall. Patient was discharged from [facility] one day earlier, patient was transferred to [facility] about 5 to 6 days ago after she presented here with GI bleed and upper GI endoscopy showed duodenal ulcers which were clipped by loss prevention investigator although patient continued bleeding because of which patient was sent to [facility] for embolization. Patient denies any bleeding at this time. Patient denies any shortness of breath orthopnea or paroxysmal nocturnal dyspnea patient was found to have borderline hypotension with cardiomyopathy with ejection fraction 40 to 45%, she presents because of recurrent fall and without loss of consciousness which might be contributing because of her cardiac disease. Workup showing new onset atrial fibrillation and she was started on a blood thinner of Eliquis, hemoglobin remained stable at 10.8 today. No evidence of GI bleed. Patient denies abdominal pain and no urinary complaint, she tolerates diet well, she was able to walk in the hallway to the and twice yesterday and this morning. She feels fine and she wants to be discharged to rehab today. Patient was fit for discharge from cardiac team yesterday. Patient will be discharged on Eliquis and propranolol. Also will increase her Protonix to twice daily Problems and management plan were discussed with the patient and he verbalized understanding and acceptance Patient was found stable and can be discharged to [facility] however he needs follow-up as an outpatient. Patient was instructed to follow up with PCP within one week and patient agrees. Also patient will need to monitor her hemoglobin and recommend to review CBC/hemoglobin in 2 to 3 days We recommend patient follow-up with [employer] Dr. Aquino in 1 week after discharge Physical exam Gen: patient is a AAOx3, no distress CVS: S1-S2, RRR, no murmur Lungs: B/L CTA, no wheezing Abdomen: soft, no distention, no tenderness, positive bowel sounds Extremity: no leg edema or induration Time spent more than 35 minutes Patient Condition at Discharge: Stable Plan - Discharge Summary Discharge Rx Participant: No New Discharge Prescriptions: New Furosemide [Lasix] 20 mg PO DAILY 30 Days #30 tab Midodrine [ProAmatine] 10 mg PO AC-TID tab Apixaban [Eliquis] 5 mg PO BID #60 tab Propranolol LA [Inderal LA] 60 mg PO DAILY #30 cap Continue allopurinoL [Zyloprim] 300 mg PO DAILY Levothyroxine Sodium [Synthroid] 75 mcg PO DAILY Pantoprazole [Protonix] 40 mg PO DAILY@1200 Ferrous Sulfate [Iron (65 MG Elemental)] 325 mg PO DAILY Dicyclomine [Bentyl] 20 mg PO BID Triamcinolone 0.025% Cream [Kenalog 0.025% Cream] 1 applic TOPICAL Q2D carBAMazepine [Carbatrol] 200 mg PO Q12HR oxyCODONE HCL/ACETAMINOPHEN [oxyCODONE HCL/ACETAMINOPHEN 7.5-325] 1 tab PO Q6H PRN 3 Days #12 tab PRN Reason: Pain Discontinued Propranolol HCl [Inderal] 60 mg PO DAILY Dicyclomine [Bentyl] 20 mg PO BID PRN PRN Reason: IBS Amoxic-Pot Clav 875-125Mg [Augmentin 875-125] 1 tab PO Q12HR Discharge Medication List Levothyroxine Sodium [Synthroid] 75 mcg PO DAILY 12/15/18 [History] allopurinoL [Zyloprim] 300 mg PO DAILY 12/15/18 [History] Pantoprazole [Protonix] 40 mg PO DAILY@1200 05/05/22 [History] Ferrous Sulfate [Iron (65 MG Elemental)] 325 mg PO DAILY 06/05/23 [History] Dicyclomine [Bentyl] 20 mg PO BID 01/05/24 [History] Triamcinolone 0.025% Cream [Kenalog 0.025% Cream] 1 applic TOPICAL Q2D 01/05/24 [History] carBAMazepine [Carbatrol] 200 mg PO Q12HR 01/05/24 [History] Furosemide [Lasix] 20 mg PO DAILY 30 Days #30 tab 01/15/24 [Rx] Midodrine [ProAmatine] 10 mg PO AC-TID tab 01/15/24 [Rx] oxyCODONE HCL/ACETAMINOPHEN [oxyCODONE HCL/ACETAMINOPHEN 7.5-325] 1 tab PO Q6H PRN 3 Days #12 tab 01/15/24 [Rx] Apixaban [Eliquis] 5 mg PO BID #60 tab 01/16/24 [Rx] Propranolol LA [Inderal LA] 60 mg PO DAILY #30 cap 01/16/24 [Rx] Follow up Appointment(s)/Referral(s): Ravinder Sinclair MD [Primary Care Provider] - 1-2 days Activity/Diet/Wound Care/Special Instructions: Heart healthy diet activity is restricted till you see your doctor Discharge Disposition: TRANSFER TO SNF/ECF
[2024-01-17 11:36] VITALS: BMI 21.2
--- NOTE | 2024-01-17 13:17 | P.PN ---
Subjective HISTORY OF PRESENT ILLNESS: This is an 83-year-old female with past medical history of recent GI bleed at [facility] status post EGD and clipping and status post embolization. Patient following that was having weakness tiredness and fell down. She has a past medical history significant for CHF and mild cardiomyopathy. She follows with Dr. BRIDGER Aquino in the office. Echocardiogram revealed EF of 40 to 45%. Elevated pulmonary artery pressures. Left atrial enlargement. Blood pressures have been on the low side this morning 97/57, heart rate in the 60s and 70s, pulse ox 94% on room air. Last evening, patient had an episode after eating dinner where her blood pressure dropped to 74/44 not long after IV Lasix 20 mg was given. Morning dose of IV Lasix was held. Patient also received a 500 cc fluid bolus last evening over a 5-hour period. 01/13 Patient has no new concerns today. Blood pressure slightly better this morning at 103/69. Yesterday, morning dose of Lasix held due to hypotension despite patient being started on midodrine. Patient is currently on midodrine 5 mg 3 times daily. Heart rate is in the 60s and 70s, pulse ox 95% on room air. Repeat blood work reveals hemoglobin 11.2. Sodium 134, potassium 4, BUN 22 creatinine 0.77. 01/15/2024 Patient examined this morning at the bedside. Patient currently denies chest pain or pressure. She denies shortness of breath. Patient went into [facility] with RVR this morning. She denies a history of atrial fibrillation. The patient was previously on propranolol which was discontinued over the weekend as patient was hypotensive. There is some documentation that the patient underwent EGD at [facility] due to GI bleeding. Over, records from [facility] were obtained and reviewed. The patient underwent endoscopy on 01/04/2024 revealing normal-appearing duodenum with no evidence of duodenitis or duodenal ulcer, mild antral gastritis, and no evidence of active GI bleed. The patient then developed choledocholithiasis and ERCP was recommended. However the GI was not available at this facility and the patient was transferred to [facility]. She underwent successful ERCP. Per [facility] records, the patient did not undergo repeat EGD. 01/16/2024 Patient examined this morning. She is sitting up in the chair. Patient denies chest pain or pressure. She denies shortness of breath. Telemetry reveals sinus mechanism. Hemoglobin remained stable. She is anticoagulated with Eliquis. 01/17/2024 Patient examined this morning. She is sitting up in the chair. She denies chest pain or pressure. She denies shortness of breath. Telemetry reveals sinus mechanism. Patient is anticoagulated with Eliquis. Patient's hemoglobin 10.8 today, down from 12.6 yesterday. Patient denies any signs or symptoms of bleeding. PHYSICAL EXAM: VITAL SIGNS: Reviewed. GENERAL: Well-developed in no acute distress. NECK: Supple. No JVD or thyromegaly LUNGS: Respirations even and unlabored. Lungs essentially clear to auscultation bilaterally. HEART: Regular rate and rhythm. S1 and S2 heard. EXTREMITIES: Normal range of motion. No clubbing or cyanosis. Peripheral pulses intact. No lower extremity edema ASSESSMENT: Acute on chronic heart failure with reduced EF, 40 to 45% Hypotension, resolved New onset atrial fibrillation with RVR Recent hospitalization for melena and anemia, status post endoscopy on 01/04/2024 revealing normal-appearing duodenum with no evidence of duodenitis or duodenal ulcer, mild antral gastritis, and no evidence of active GI bleed Recent history of choledocholithiasis, status post ERCP at [facility] History of duodenal ulcer History of iron deficiency anemia PLAN: Continue current dose of propranolol Continue anticoagulation with Eliquis. Recommend repeating CBC in 3 to 4 days Patient is stable for discharge today from a cardiac standpoint She is to follow-up postdischarge with Dr. Aquino Nurse practitioner note has been reviewed by physician. Signing provider agrees with the documented findings, assessment, and plan of care documented by HEAVY DUTY PRESS OPERATOR as a scribe. Objective - Vital Signs Vital signs: Vital Signs Temp 97.8 F 01/17/24 08:56 Pulse 64 01/17/24 12:31 Resp 16 01/17/24 12:31 BP 126/78 01/17/24 12:31 Pulse Ox 98 01/17/24 12:31 FiO2 Intake & Output 01/16/24 01/17/24 01/17/24 18:59 06:59 18:59 Intake Total 298 240 118 Output Total 550 Balance 298 -310 118 Weight 52.5 kg 52.5 kg Intake: Oral 298 240 118 Output: Urine 250 Urine/Stool Mix 300 Other: Voiding Method Bedside Commode Bedside Commode External Catheter External Catheter # Voids 1 1 # Bowel Movements 1 - Labs CBC & Chem 7: 01/17/24 09:02 01/17/24 09:02 Labs: Abnormal Lab Results - Last 24 Hours (Table) 01/17/24 01/17/24 Range/Units 09:02 09:02 RBC 3.75 L (3.80-5.40) m/uL Hgb 10.8 L (11.4-16.0) gm/dL MCHC 30.0 L (31.0-37.0) g/dL Sodium 133 L (137-145) mmol/L Chloride 97 L (98-107) mmol/L BUN 18 H (7-17) mg/dL Glucose 130 H (74-99) mg/dL
[2024-01-17 13:21] VITALS: BP 126/78; PULSE 64
== END 2024-01-17 16:30 | DRG 291 ==
LOC: EC 21:31 → 3SCARD 01-11 02:08 → OBSVTOIN 01-12 07:24
PROVIDERS: ADMIT Internal Medicine; ATTEND Internal Medicine
DX: I11.0 Hypertensive heart disease with heart failure (principal); I50.43 Acute on chronic combined systolic (congestive) and diastolic (congestive) heart failure; E87.1 Hypo-osmolality and hyponatremia; I48.91 Unspecified atrial fibrillation; D64.9 Anemia, unspecified; E03.9 Hypothyroidism, unspecified; M25.519 Pain in unspecified shoulder; I42.9 Cardiomyopathy, unspecified; M54.9 Dorsalgia, unspecified; G89.29 Other chronic pain; I95.9 Hypotension, unspecified; E66.9 Obesity, unspecified; G50.0 Trigeminal neuralgia; R82.71 Bacteriuria; Z68.38 Body mass index [BMI] 38.0-38.9, adult; F41.9 Anxiety disorder, unspecified; I08.1 Rheumatic disorders of both mitral and tricuspid valves; G47.33 Obstructive sleep apnea (adult) (pediatric); K21.9 Gastro-esophageal reflux disease without esophagitis; Z87.11 Personal history of peptic ulcer disease; Z71.3 Dietary counseling and surveillance; Z96.653 Presence of artificial knee joint, bilateral; Z79.899 Other long term (current) drug therapy; Z79.2 Long term (current) use of antibiotics; Z79.890 Hormone replacement therapy; Z91.81 History of falling
CPT/HCPCS: 36415; 71046; 80048; 80053; 81001; 83605; 83735; 83880; 83930; 83935; 84443; 84484; 85025; 85027; 85610; 85730; 93005; 93306; 96361; 96374; 99285

== ENCOUNTER → 2024-03-18 | Outpatient (CLI) | payer MEDICARE, BC ==
--- NOTE | 2024-03-19 07:15 | CA ---
Transthoracic Echo Report Name: Ashtyn Silverman Age: 83 Gender: F : 1940 Exam Date: 03/18/2024 11:36 Exam Location: [facility] Ht (in): 64 Wt (lb): 211 Ordering Physician: Tiffanie Aquino MD ([id number]) Attending/Referring Phys: Mall Manager Adrienne Ott RDCS Procedure CPT: Indications: ATRIAL FIBRILLATION I48.91 Cardiac Hx: Technical Quality: Fair Contrast 1: Total Dose (mL): Contrast 2: Total Dose (mL): MEASUREMENTS (Male / Female) Normal Values 2D ECHO LV Diastolic Diameter PLAX 4.9 cm 4.2 - 5.9 / 3.9 - 5.3 cm LV Systolic Diameter PLAX 3.9 cm IVS Diastolic Thickness 1.2 cm 0.6 - 1.0 / 0.6 - 0.9 cm LVPW Diastolic Thickness 1.2 cm 0.6 - 1.0 / 0.6 - 0.9 cm LV Relative Wall Thickness 0.5 RV Internal Dim ED PLAX 2.5 cm LA Systolic Diameter LX 4.0 cm 3.0 - 4.0 / 2.7 - 3.8 cm LV Diastolic Volume MOD BP 75.6 cm??? 67 - 155 / 56 - 104 cm??? LV Systolic Volume MOD BP 32.9 cm??? - / 19 - 49 cm??? LV Ejection Fraction MOD BP 56.5 % >= 55 % LV Cardiac Index MOD BP 1306.9 cm???/min???m??? LV Diastolic Volume MOD 4C 81.6 cm??? LV Systolic Volume MOD 4C 39.5 cm??? LV Ejection Fraction MOD 4C 51.5 % LV Cardiac Index MOD 4C 1287.3 cm???/min???m??? LV Diastolic Length 4C 6.8 cm LV Systolic Length 4C 5.8 cm LV Diastolic Volume MOD 2C 64.8 cm??? LV Systolic Volume MOD 2C 32.6 cm??? LV Ejection Fraction MOD 2C 49.6 % LV Cardiac Index MOD 2C 984.3 cm???/min???m??? LV Diastolic Length 2C 6.3 cm LV Systolic Length 2C 5.9 cm LA Volume 111.5 cm??? 18 - 58 / 22 - 52 cm??? LA Volume Index 52.5 cm???/m??? 16 - 28 cm???/m??? M-MODE Aortic Root Diameter MM 3.2 cm LA Systolic Diameter MM 3.9 cm LA Ao Ratio MM 1.2 AV Cusp Separation MM 2.2 cm DOPPLER MV Area PHT 2.9 cm??? Mitral E Point Velocity 91.2 cm/s Mitral A Point Velocity 88.5 cm/s Mitral E to A Ratio 1.0 MV Deceleration Time 261.7 ms TR Peak Velocity 336.7 cm/s TR Peak Gradient 51.3 mmHg Right Atrial Pressure 20.0 mmHg Pulmonary Artery Systolic Pressu 65.4 mmHg Right Ventricular Systolic Press 65.4 mmHg FINDINGS Left Ventricle Left ventricular ejection fraction is estimated at 45 to 50%.Mildly increased left ventricular wall thickness. Left ventricular cavity size normal. Global hypokinesis Right Ventricle Mild right ventricular dilatation. Severe pulmonary hypertension. Right ventricular systolic pressure estimated at 65 mmHg. Right Atrium Severe right atrial dilatation. Left Atrium Mildly increased left atrial diameter. Severely increased left atrial volume. Mildly increased left atrial area. Mitral Valve Structurally normal mitral valve. Moderate mitral regurgitation.mitral annular calcification. Aortic Valve Trileaflet aortic valve. Mild aortic regurgitation. Tricuspid Valve Structurally normal tricuspid valve. [id number] tricuspid regurgitation. Pulmonic Valve Structurally normal pulmonic valve. Moderate pulmonic regurgitation. Pericardium No pericardial or pleural effusion. Aorta Normal size aortic root and proximal ascending aorta. CONCLUSIONS 1. Mild impairment of the left ventricle systolic function with global hypokinesis 2. Moderate mitral and moderate severe tricuspid regurgitation with severe pulmonary hypertension 3. Mild aortic regurgitation Previewed by: Dr. Rashel Nguyen MD (Electronically Signed) Final Date: 19 March 2024 07:14
== END | disposition home or self-care (01) ==
LOC: RADECHMAIN 11:22
PROVIDERS: ATTEND Internal Medicine Interventional Cardiology
DX: I08.3 Combined rheumatic disorders of mitral, aortic and tricuspid valves (principal); I48.91 Unspecified atrial fibrillation; I27.20 Pulmonary hypertension, unspecified
CPT/HCPCS: 93306